=== PATIENT | female | born 1960 | race Hispanic/Latino ===

== ENCOUNTER 2019-05-13 17:33 | Emergency (ER) | payer OTHER ==
[2019-05-13] MEDS ORDERED: LIDOCAINE HCL-MPF 1% 2ML VIAL ONE (18:46)
[2019-05-13] MEDS ORDERED: CEFTRIAXONE SODIUM 1 GM ONE (18:46)
[2019-05-13] MEDS ORDERED: TETANUS/DIPHTHERIA TOXOID [ADULT] 0.5 ML VIAL IM ONE (18:47)
== END 2019-05-13 19:00 | disposition home or self-care (01) ==
LOC: EDH 17:33
DX: S51.831A Puncture wound without foreign body of right forearm, initial encounter (principal); I10 Essential (primary) hypertension; Z90.49 Acquired absence of other specified parts of digestive tract; W55.01XA Bitten by cat, initial encounter; Y93.89 Activity, other specified; Y92.098 Other place in other non-institutional residence as the place of occurrence of the external cause; Y99.8 Other external cause status
CPT/HCPCS: 90471; 90714; 96372; 99284; J0696; J3490

== ENCOUNTER 2020-01-06 07:48 | Emergency (ER) | payer OTHER ==
[2020-01-06 08:53] LABS: BASOPHILS % (AUTO) 0.2 % (0.0-5.0); HEMATOCRIT 37.1 % (36-48); LYMPHOCYTES % (AUTO) 20.5 % (21.0-51.0); MEAN CORPUSCULAR HEMOGLOBIN 29.7 pg (27.0-33.0); MEAN CORPUSCULAR HGB CONC 33.4 g/dL (32.0-36.0); MONOCYTES % (AUTO) 6.7 % (3.0-13.0); NEUTROPHILS % (AUTO) 72.2 % (40.0-77.0); PLATELET COUNT (AUTO) 217 K/uL (130-400); RED BLOOD CELL COUNT(AUTO) 4.17 MIL/uL (4.00-5.50); RED CELL DISTRIBUTION WIDTH 12.8 % (11.0-15.5); WHITE BLOOD COUNT (AUTO) 4.6 K/uL (4.8-10.8)
[2020-01-06 09:02] LABS: CREATININE 0.5 mg/dL (0.5-1.5); POTASSIUM 3.3 mmol/L (3.5-5.1)
[2020-01-06 09:07] LABS: ALBUMIN 3.3 g/dL (3.5-5.0); BILIRUBIN,TOTAL 0.1 mg/dL (0.2-1.0); TOTAL PROTEIN, SERUM 7.4 g/dL (6.0-8.3)
[2020-01-06] MEDS ORDERED: INDOMETHACIN 50 MG SUPP.RECT RC SCH (09:30)
== END 2020-01-06 10:58 | disposition home or self-care (01) ==
LOC: EDH 07:48
DX: G44.85 Primary stabbing headache (principal); I10 Essential (primary) hypertension; Z90.49 Acquired absence of other specified parts of digestive tract
CPT/HCPCS: 36415; 70450; 80053; 85025; 85651

== ENCOUNTER 2020-01-12 13:49 | Inpatient (IN) | payer OTHER ==
[~2020-01-12] VITALS: Ht 157.5 cm; Wt 80.8 kg
[2020-01-12 15:04] LABS: BASOPHILS % (AUTO) 0.2 % (0.0-5.0); EOSINOPHILS % (AUTO) 0.2 % (0.0-8.0); HEMATOCRIT 36.7 % (36-48); LYMPHOCYTES % (AUTO) 3.8 % (21.0-51.0); MEAN CORPUSCULAR HEMOGLOBIN 29.7 pg (27.0-33.0); MEAN CORPUSCULAR HGB CONC 33.2 g/dL (32.0-36.0); MEAN CORPUSCULAR VOLUME 89.3 fL (79-99); MONOCYTES % (AUTO) 2.5 % (3.0-13.0); NEUTROPHILS % (AUTO) 91.5 % (40.0-77.0); PLATELET COUNT (AUTO) 377 K/uL (130-400); RED BLOOD CELL COUNT(AUTO) 4.11 MIL/uL (4.00-5.50); RED CELL DISTRIBUTION WIDTH 12.9 % (11.0-15.5); WHITE BLOOD COUNT (AUTO) 15.2 K/uL (4.8-10.8)
[2020-01-12 15:26] LABS: ALBUMIN 2.6 g/dL (3.5-5.0); BILIRUBIN,TOTAL 0.3 mg/dL (0.2-1.0); CREATININE 0.6 mg/dL (0.5-1.5); TOTAL PROTEIN, SERUM 6.6 g/dL (6.0-8.3)
[2020-01-12 15:28] LABS: POTASSIUM 2.9 mmol/L (3.5-5.1)
[2020-01-12 15:44] LABS: RAPID GROUP A STREP NEGATIVE (NEGATIVE)
[2020-01-12] MEDS ORDERED: ALBUTEROL INHALER 90MCG/INH IH ONE (16:28)
[2020-01-12] MEDS ORDERED: AZITHROMYCIN 500MG+NS 250ML 250 ML IV ONE (16:31)
[2020-01-12] MEDS ORDERED: CEFTRIAXONE SODIUM 1 GM ONE (16:32)
[2020-01-12 16:48] LABS: ABG BASE EXCESS 1.2 mmol/L (-2.0-3.0); ABG HCO3 25.2 mmol/L (21.0-28.0); ABG OXYGEN SATURATION 94.8 % (95.0-99.0); ABG PCO2 38 mmHg (32-45)
[2020-01-12] MEDS ORDERED: LIDOCAINE HCL-MPF 1% 2ML VIAL IJ PRN (17:15)
[2020-01-12] MEDS ORDERED: POTASSIUM CHLORIDE 20MEQ/100ML 100 ML IV PRN (17:15)
[2020-01-12] MEDS ORDERED: MAGNESIUM 2GM PREMIX 50ML 50 ML IV SCH (17:15)
[2020-01-12 18:15] LABS: HEMOGLOBIN A1C 5.3 % (4.0-6.0)
[2020-01-12] MEDS ORDERED: ENOXAPARIN SODIUM 40 MG/0.4 ML SYRINGE SQ ONE (19:52)
[2020-01-12] MEDS ORDERED: POTASSIUM BICARB/CIT AC 25 MEQ TABLET.EFF ONE (19:52)
[2020-01-12] MEDS ORDERED: ENOXAPARIN SODIUM 40 MG/0.4 ML SYRINGE SQ SCH (20:00)
[2020-01-12 20:45] LABS: LACTATE DEHYDROGENASE 413 U/L (81-234)
[2020-01-12] MEDS ORDERED: ACETAMINOPHEN 325 MG TAB ONE (21:54)
[2020-01-13] MEDS ORDERED: HYDRALAZINE HCL 20 MG/ML VIAL IV PRN (04:30)
[2020-01-13] MEDS ORDERED: LACTATED RINGERS 1000ML 1,000 ML IV SCH (04:45)
[2020-01-13] MEDS ORDERED: METHYLPREDNISOLONE SOD SUCC 40MG/ML 1ML ONE (04:51)
[2020-01-13] MEDS ORDERED: CEFTRIAXONE SODIUM 1 GM ONE (04:51)
[2020-01-13] MEDS: METHYLPREDNISOLONE SOD SUCC 40MG/ML 1ML IVP SCH ×3 (05:00→20:51)
[2020-01-13] MEDS: CEFTRIAXONE SODIUM 1 GM IVP SCH ×2 (06:00→18:16)
[2020-01-13 06:43] LABS: BASOPHILS % (AUTO) 0.1 % (0.0-5.0); EOSINOPHILS % (AUTO) 0.2 % (0.0-8.0); HEMATOCRIT 35.7 % (36-48); LYMPHOCYTES % (AUTO) 5.3 % (21.0-51.0); MEAN CORPUSCULAR HEMOGLOBIN 28.6 pg (27.0-33.0); MEAN CORPUSCULAR HGB CONC 32.2 g/dL (32.0-36.0); MEAN CORPUSCULAR VOLUME 88.8 fL (79-99); NEUTROPHILS % (AUTO) 90.7 % (40.0-77.0); PLATELET COUNT (AUTO) 347 K/uL (130-400); RED BLOOD CELL COUNT(AUTO) 4.02 MIL/uL (4.00-5.50); WHITE BLOOD COUNT (AUTO) 14.7 K/uL (4.8-10.8)
[2020-01-13 06:59] LABS: CREATININE 0.6 mg/dL (0.5-1.5); POTASSIUM 3.5 mmol/L (3.5-5.1)
[2020-01-13 07:29] LABS: CRP QUANTITATIVE 180.5 mg/L (0.00-9.0)
[2020-01-13] MEDS ORDERED: ENOXAPARIN SODIUM 40 MG/0.4 ML SYRINGE SQ SCH (09:00)
[2020-01-13] MEDS ORDERED: ENOXAPARIN SODIUM 60 MG/0.6 ML SQ ONE (10:23)
[2020-01-13] MEDS ORDERED: LOSA50TA64 PO (11:47)
[2020-01-13 12:00] VITALS: BP 136/67
[2020-01-13] MEDS ORDERED: REMDESIVIR (INVESTIGATIONAL) 200 MG in SODIUM CHLORIDE 0.9% 250 ML IV ONE (12:30)
[2020-01-13] MEDS: PHARMACY COMMUNICATION MISC SCH ×4 (12:45→19:45)
[2020-01-13] MEDS: AZITHROMYCIN 500MG+NS 250ML 250 ML IV SCH (14:11)
[2020-01-13 17:05] VITALS: BP 143/74
[2020-01-13 20:23] VITALS: BP 154/77
[2020-01-13] MEDS: ENOXAPARIN SODIUM 80 MG/0.8 ML SQ SCH (20:52)
[2020-01-14 00:11] VITALS: BP 135/80
[2020-01-14] MEDS: PHARMACY COMMUNICATION MISC SCH ×3 (03:45→19:45)
[2020-01-14 04:38] VITALS: BP 147/71
[2020-01-14] MEDS: CEFTRIAXONE SODIUM 1 GM IVP SCH ×2 (05:27→18:11)
[2020-01-14 06:11] LABS: HEMATOCRIT 34.9 % (36-48); MEAN CORPUSCULAR HEMOGLOBIN 28.9 pg (27.0-33.0); MEAN CORPUSCULAR HGB CONC 32.1 g/dL (32.0-36.0); MEAN CORPUSCULAR VOLUME 90.2 fL (79-99); PLATELET COUNT (AUTO) 378 K/uL (130-400); RED BLOOD CELL COUNT(AUTO) 3.87 MIL/uL (4.00-5.50); RED CELL DISTRIBUTION WIDTH 13.1 % (11.0-15.5); WHITE BLOOD COUNT (AUTO) 12.7 K/uL (4.8-10.8)
[2020-01-14 07:59] VITALS: BP 145/77
[2020-01-14 08:12] LABS: BILIRUBIN,TOTAL 0.2 mg/dL (0.2-1.0); CREATININE 0.6 mg/dL (0.5-1.5); POTASSIUM 3.9 mmol/L (3.5-5.1); TOTAL PROTEIN, SERUM 5.9 g/dL (6.0-8.3)
[2020-01-14 08:19] LABS: CRP QUANTITATIVE 244.6 mg/L (0.00-9.0)
[2020-01-14 08:44] LABS: LYMPHOCYTES % (MANUAL) 4 % (22-44); MAN.DIFF COMMENT-IMPRESSION MANUAL DIFFERENTIAL; MONOCYTES % (MANUAL) 2 % (2-9); PLATELET MORPHOLOGY COMMENT ADEQUATE; SEGMENTED NEUTROPHILS % 94 % (40-70)
[2020-01-14] MEDS ORDERED: MORPHINE SULFATE 2 MG/ML 1ML SYG IVP SCH (08:45)
[2020-01-14] MEDS: ENOXAPARIN SODIUM 80 MG/0.8 ML SQ SCH ×2 (09:05→19:54)
[2020-01-14] MEDS: METHYLPREDNISOLONE SOD SUCC 40MG/ML 1ML IVP SCH (09:05)
[2020-01-14] MEDS: NITROGLYCERIN 0.4 MG SL TAB SL PRN (09:07)
[2020-01-14 11:39] VITALS: BP 149/88
[2020-01-14] MEDS: AZITHROMYCIN 500MG+NS 250ML 250 ML IV SCH (15:03)
[2020-01-14 15:30] VITALS: BP 138/86
[2020-01-14] MEDS: METHYLPREDNISOLONE SOD SUCC 125MG/2ML VIAL IVP SCH ×2 (15:41→19:53)
--- NOTE | 2020-01-14 16:47 | NUR ---
cm note spoke to pt's spouse, pt resides at home with spouse, independent with adls and ambulation, pt drives. no dme, no services. states dc plan is back home at time of dc. states no dc needs. Addendum: 01/14/20 at 1650 by LEANDER FAGAN CM Amended: Links added.
[2020-01-14] MEDS: FAMOTIDINE 20MG TAB 20 MG TAB PO SCH (19:53)
--- NOTE | 2020-01-14 20:00 | NUR ---
PT ON NRB.AT 100%. O2 LEVEL AT 83%. SOB NOTED.
[2020-01-14 20:05] VITALS: BP 141/76
[2020-01-15] VITALS (7 sets, daily range): BP systolic 116–144; BP diastolic 42–71
--- NOTE | 2020-01-15 02:45 | NUR ---
PT C/O CHEST PAIN. NITRO X2 GIVEN. DID MINIMALLY SUBSIDE.
[2020-01-15] MEDS: NITROGLYCERIN 0.4 MG SL TAB SL PRN ×3 (03:00→18:26)
[2020-01-15] MEDS ORDERED: MORPHINE SULFATE 2 MG/ML 1ML SYG IVP ONE (03:00)
--- NOTE | 2020-01-15 03:00 | NUR ---
PAGED JOSUE MANAGER STRATEGY. NEW ORDER FOR EKG. LIPID PANEL. MORPHINE X1 2MG. PT REFUSED IT. REQUESTED TYLENOL.
[2020-01-15] MEDS ORDERED: MORPHINE SULFATE 2 MG/ML 1ML SYG ONE (03:15)
[2020-01-15] MEDS ORDERED: ACETAMINOPHEN 325 MG TAB ONE (03:42)
[2020-01-15] MEDS: PHARMACY COMMUNICATION MISC SCH ×3 (03:45→19:45)
[2020-01-15] MEDS: METHYLPREDNISOLONE SOD SUCC 125MG/2ML VIAL IVP SCH ×4 (03:52→21:08)
[2020-01-15 04:10] LABS: HEMATOCRIT 34.2 % (36-48); MEAN CORPUSCULAR HEMOGLOBIN 29.2 pg (27.0-33.0); MEAN CORPUSCULAR HGB CONC 32.7 g/dL (32.0-36.0); MEAN CORPUSCULAR VOLUME 89.1 fL (79-99); PLATELET COUNT (AUTO) 411 K/uL (130-400); RED BLOOD CELL COUNT(AUTO) 3.84 MIL/uL (4.00-5.50); RED CELL DISTRIBUTION WIDTH 12.6 % (11.0-15.5); WHITE BLOOD COUNT (AUTO) 11.8 K/uL (4.8-10.8)
[2020-01-15 04:16] LABS: CARBON DIOXIDE 29 mmol/L (21-32); CHLORIDE 104 mmol/L (101-111); CREATININE 0.6 mg/dL (0.5-1.5); GLOMERULAR FILTR. RATE CALC 108 mL/min (>60); GLUCOSE,RANDOM 159 mg/dL (70-105); POTASSIUM 3.7 mmol/L (3.5-5.1); SODIUM SERUM 140 mmol/L (136-145); UREA NITROGEN, BLOOD 21 mg/dL (7-18)
[2020-01-15 04:28] LABS: ALANINE AMINOTRANSFERASE 37 U/L (12-78); ALBUMIN 2.1 g/dL (3.5-5.0); ASPARTATE AMINOTRANSFERASE 30 U/L (10-37); BILIRUBIN,TOTAL 0.3 mg/dL (0.2-1.0); CREATINE KINASE, TOTAL 42 U/L (21-232); LACTATE DEHYDROGENASE 661 U/L (81-234); MYOGLOBIN 51 ng/mL (10-92); TROPONIN I < 0.04 ng/mL (0.00-0.06)
[2020-01-15 04:43] LABS: LYMPHOCYTES % (MANUAL) 2 % (22-44); MAN.DIFF COMMENT-IMPRESSION MANUAL DIFFERENTIAL; MONOCYTES % (MANUAL) 4 % (2-9); SEGMENTED NEUTROPHILS % 94 % (40-70)
--- NOTE | 2020-01-15 05:00 | NUR ---
PT HAS IMPROVED IN O2 LEVEL. 94% SUSTAINING.
[2020-01-15] MEDS: CEFTRIAXONE SODIUM 1 GM IVP SCH ×2 (05:43→17:21)
[2020-01-15] MEDS: FAMOTIDINE 20MG TAB 20 MG TAB PO SCH ×2 (08:23→21:09)
[2020-01-15] MEDS: ENOXAPARIN SODIUM 80 MG/0.8 ML SQ SCH ×2 (08:23→21:09)
[2020-01-15] MEDS: FUROSEMIDE 10 MG/ML 2ML VIAL IV SCH ×2 (12:27→23:58)
[2020-01-15] MEDS: AZITHROMYCIN 500MG+NS 250ML 250 ML IV SCH (14:58)
[2020-01-15] MEDS: ACETAMINOPHEN 325 MG TAB PO PRN (14:59)
--- NOTE | 2020-01-15 18:20 | NUR ---
patient reports chest pain to center of chest reports feels like a throbbing pain. patient requested nitro. 2 doses of Nitro given 5 minutes. patient reports chest pain is resolved. STAT EKG ordered per protocol [id number] paged DIGITAL HARDWARE DESIGN ENGINEER AJ pending call back
--- NOTE | 2020-01-15 18:39 | NUR ---
spoke with JOSUE DEMOLITIONIST made aware of new report of chest pain and EKG result of sinus rhythm, new order stat cardiac panel and EKG prn chest pain. made him aware of 2 doses of nitro given, no new orders continue with nitro prn
[2020-01-15 20:15] LABS: CREATINE KINASE, TOTAL 52 U/L (21-232); MYOGLOBIN 48 ng/mL (10-92); TROPONIN I < 0.04 ng/mL (0.00-0.06)
--- NOTE | 2020-01-15 20:30 | NUR ---
called lab, asked about the pending covalencent plasma, lab personal stated they do not have any available
[2020-01-16] MEDS ORDERED: ONDANSETRON HCL 4 MG/2 ML VIAL ONE (02:27)
[2020-01-16] MEDS: METHYLPREDNISOLONE SOD SUCC 125MG/2ML VIAL IVP SCH ×3 (03:04→20:41)
[2020-01-16 03:06] VITALS: BP 138/66
[2020-01-16] MEDS ORDERED: ONDANSETRON HCL 4 MG/2 ML VIAL IVP PRN (03:15)
[2020-01-16] MEDS: PHARMACY COMMUNICATION MISC SCH ×3 (03:45→19:45)
--- NOTE | 2020-01-16 04:00 | NUR ---
as per zohra from lab convalescent plasma not available for this patient
[2020-01-16] MEDS: CEFTRIAXONE SODIUM 1 GM IVP SCH ×2 (04:40→18:19)
[2020-01-16 04:43] LABS: BASOPHILS % (AUTO) 0.1 % (0.0-5.0); HEMATOCRIT 35.2 % (36-48); LYMPHOCYTES % (AUTO) 5.5 % (21.0-51.0); NEUTROPHILS % (AUTO) 89.4 % (40.0-77.0); PLATELET COUNT (AUTO) 449 K/uL (130-400); RED CELL DISTRIBUTION WIDTH 12.3 % (11.0-15.5)
[2020-01-16 05:13] LABS: ALBUMIN 2.1 g/dL (3.5-5.0); BILIRUBIN,TOTAL 0.3 mg/dL (0.2-1.0); CREATININE 0.6 mg/dL (0.5-1.5); CRP QUANTITATIVE 63.5 mg/L (0.00-9.0); POTASSIUM 3.7 mmol/L (3.5-5.1); TOTAL PROTEIN, SERUM 5.9 g/dL (6.0-8.3)
[2020-01-16 08:00] VITALS: BP 101/55
[2020-01-16] MEDS: FAMOTIDINE 20MG TAB 20 MG TAB PO SCH ×2 (10:49→20:41)
[2020-01-16] MEDS: ENOXAPARIN SODIUM 80 MG/0.8 ML SQ SCH ×2 (10:50→20:45)
[2020-01-16 12:00] VITALS: BP 145/54
[2020-01-16] MEDS: FUROSEMIDE 10 MG/ML 2ML VIAL IV SCH ×2 (12:44→20:41)
[2020-01-16] MEDS: AZITHROMYCIN 500MG+NS 250ML 250 ML IV SCH (12:44)
[2020-01-16] MEDS: POTASSIUM CHLORIDE 20 MEQ ERTAB PO PRN (12:46)
--- NOTE | 2020-01-16 14:02 | NUR ---
noted patient tachepnic breathing 28 breaths per minute, patient currently on 60liters highflow O2. patients reports still feeling short of breath. current O2 sat 83%. Dr. Cooper at bedside new order decrease highflow to 40 LPM, and add non rebreather on top of highflow. Paris VERDE made aware of new order
[2020-01-16 16:00] VITALS: BP 120/62
--- NOTE | 2020-01-16 16:30 | NUR ---
PATIENT REPORTING SHE CANNOT BREATHE, CURRENTLY ON HIGH FLOW 60lpm 100%. PATIENT REMOVING O2, STATING IT IS HURTING HER NOSE. ATTEMPTED TO ADD NON REBREATHER ON TOP OF HIGHFLOW DR. POLANCO HAD ORDERED, PATIENT REFUSED. PATIENT ANXIOUS. PAGED DR. POLANCO PENDING CALL BACK
--- NOTE | 2020-01-16 16:40 | NUR ---
PATIENT IN PRONE POSITION WITH NON REBREATHER 100%, O2 SAT IMPROVED TO 92%, NEW ORDERS PER DR. POLANCO STAT ABG, CLONAZEPAM 0.25 DAILY PRN ANXIETY.
--- NOTE | 2020-01-16 17:00 | NUR ---
PATIENT IN PRONE POSITION, RESTING COMFORTABLY, NON REBREATHER 100%, SPOKE WITH DR. POLANCO UPDATED HIM ON ABG RESULTS AND PATIENTS CURRENT CONDITION SATURATING 94%, RESPIRATIONS EVEN AND UNLABORED. PER DR. POLANCO CONTINUE TO HAVE PATIENT IN PRONE POSITION, CONTINUE WITH NON REBREATHER
[2020-01-16 17:01] LABS: ABG BASE EXCESS 4.7 mmol/L (-2.0-3.0); ABG HCO3 29.1 mmol/L (21.0-28.0); ABG OXYGEN SATURATION 92.3 % (95.0-99.0); ABG PCO2 42 mmHg (32-45)
--- NOTE | 2020-01-16 19:15 | NUR ---
RECEIVED REPORT FROM NAINA DOOLEY. PT IS LAYING PRONE WITH EYES CLOSED. ON NRB 94%. NO DISTRESS NOTED. Addendum: 01/16/20 at 1937 by CHAKA ESPINO RN CORRECTION RECEIVED REPORT FROM MIKE.
[2020-01-16 19:38] VITALS: BP 111/62
--- NOTE | 2020-01-16 23:30 | NUR ---
PT IS IN SITTING POSITION ON THE BED, NRB O2 AT 92%. NO DISTRESS NOTED. PT DOES REPOSITION HERSELF TO PRONE, ALTERNATING HER POSITIONS. CALL LIGHT WITHIN REACH. BED TO LOWEST LEVEL.
[2020-01-17] VITALS (7 sets, daily range): BP systolic 125–153; BP diastolic 57–76
[2020-01-17] MEDS: CEFTRIAXONE SODIUM 1 GM IVP SCH ×2 (06:14→16:30)
[2020-01-17 06:49] LABS: BASOPHILS % (AUTO) 0.1 % (0.0-5.0); HEMATOCRIT 36.3 % (36-48); LYMPHOCYTES % (AUTO) 5.3 % (21.0-51.0); MEAN CORPUSCULAR HEMOGLOBIN 28.4 pg (27.0-33.0); MEAN CORPUSCULAR HGB CONC 32.2 g/dL (32.0-36.0); MEAN CORPUSCULAR VOLUME 88.1 fL (79-99); MONOCYTES % (AUTO) 2.5 % (3.0-13.0); PLATELET COUNT (AUTO) 433 K/uL (130-400); RED BLOOD CELL COUNT(AUTO) 4.12 MIL/uL (4.00-5.50); RED CELL DISTRIBUTION WIDTH 12.4 % (11.0-15.5); WHITE BLOOD COUNT (AUTO) 14.6 K/uL (4.8-10.8)
--- NOTE | 2020-01-17 06:50 | NUR ---
REPORT GIVEN TO NAINA TRAN. PT SITTING UP ON BED, NRB, O2 AT 89%. NO DISTRESS NOTED.
[2020-01-17 06:59] LABS: INR 0.99 (0.85-1.15); PROTHROMBIN TIME 10.7 SEC (9.6-11.6)
[2020-01-17] MEDS: ENOXAPARIN SODIUM 80 MG/0.8 ML SQ SCH ×2 (07:17→20:58)
[2020-01-17] MEDS: FUROSEMIDE 10 MG/ML 2ML VIAL IV SCH ×2 (07:17→23:45)
[2020-01-17] MEDS: FAMOTIDINE 20MG TAB 20 MG TAB PO SCH ×2 (07:17→20:57)
[2020-01-17 07:18] LABS: ALBUMIN 2.2 g/dL (3.5-5.0); BILIRUBIN,TOTAL 0.3 mg/dL (0.2-1.0); CREATININE 0.6 mg/dL (0.5-1.5); CRP QUANTITATIVE 36.1 mg/L (0.00-9.0); POTASSIUM 3.8 mmol/L (3.5-5.1); TOTAL PROTEIN, SERUM 5.8 g/dL (6.0-8.3)
[2020-01-17] MEDS: METHYLPREDNISOLONE SOD SUCC 125MG/2ML VIAL IVP SCH ×2 (07:18→20:56)
--- NOTE | 2020-01-17 08:00 | NUR ---
ASSESSMENT PT IS AAOX3 DENIES CP DENIES SOB DENIES NV AT THIS TIME. CURRENTLY ON O2 VIA NONREBREATHER FACING PRONE, STATES SHE FEELS FINE LIKE THIS AND IS ABLE TO REST. CALL LIGHT WITHIN REACH.
[2020-01-17] MEDS: AZITHROMYCIN 500MG+NS 250ML 250 ML IV SCH (13:25)
--- NOTE | 2020-01-17 18:07 | NUR ---
STATUS RESTING IN BED, PRONE STATUS. PT EXHIBITS NO VISIBLE SIGNS OF DISTRESS, REMAINS ON NONREBREATHER. CALL LIGHT WITHIN REACH.
[2020-01-17] MEDS: PHARMACY COMMUNICATION MISC SCH (19:45)
[2020-01-17] MEDS ORDERED: LACTULOSE 20 GM/30 ML UDCUP PO SCH (20:00)
[2020-01-17] MEDS ORDERED: LACTULOSE 20 GM/30 ML UDCUP ONE (20:04)
[2020-01-17] MEDS ORDERED: SODIUM CHLORIDE 0.9% 250 ML IV ONE (23:37)
--- NOTE | 2020-01-18 02:05 | NUR ---
STARTED 1STOF 2 CONVALESCENT PLASMA TRANSFUSION. PATIENT RESTING IN BED, O2 SATS 90-92%, NO ACUTE DISTRESS NOTED AT PRESENT.
[2020-01-18] MEDS: PHARMACY COMMUNICATION MISC SCH ×3 (03:45→19:45)
[2020-01-18 04:00] VITALS: BP 118/59
--- NOTE | 2020-01-18 04:10 | NUR ---
COMPLETED FIRST UNIT OF CONVALESCENT PLASMA WITHOUT ANY ADVERSE REACTION. PATIENT AAOX3, DENIES ANY DISCOMFORT.
--- NOTE | 2020-01-18 04:55 | NUR ---
STARTED 2ND OF 2 UNITS OF CONVALESCENT PLASMA. WILL MONITOR FOR S/S OF ADVERSE REACTION. O2 SATS REMAIN IN LOWER 90'S.
[2020-01-18 06:20] LABS: HEMATOCRIT 34.9 % (36-48); MEAN CORPUSCULAR HEMOGLOBIN 28.6 pg (27.0-33.0); MEAN CORPUSCULAR HGB CONC 32.7 g/dL (32.0-36.0); MEAN CORPUSCULAR VOLUME 87.7 fL (79-99); RED BLOOD CELL COUNT(AUTO) 3.98 MIL/uL (4.00-5.50); RED CELL DISTRIBUTION WIDTH 12.2 % (11.0-15.5); WHITE BLOOD COUNT (AUTO) 14.6 K/uL (4.8-10.8)
[2020-01-18] MEDS: CEFTRIAXONE SODIUM 1 GM IVP SCH (06:25)
[2020-01-18 06:52] LABS: ALBUMIN 2.2 g/dL (3.5-5.0); BILIRUBIN,TOTAL 0.4 mg/dL (0.2-1.0); CREATININE 0.5 mg/dL (0.5-1.5); CRP QUANTITATIVE 68.4 mg/L (0.00-9.0); POTASSIUM 3.6 mmol/L (3.5-5.1); TOTAL PROTEIN, SERUM 5.9 g/dL (6.0-8.3)
--- NOTE | 2020-01-18 07:00 | NUR ---
COMPLETED 2ND OF 2 UNITS OF CONVALESCENT PLASMA WITHOUT ANY ADVERSE REACTION. PATIENT AAOX3, DENIES ANY DISCOMFORT. PERSISTENT O2 SATS IN LOWER 90'S.
[2020-01-18] MEDS: METHYLPREDNISOLONE SOD SUCC 125MG/2ML VIAL IVP SCH ×3 (07:27→19:37)
[2020-01-18] MEDS: ENOXAPARIN SODIUM 80 MG/0.8 ML SQ SCH ×2 (07:27→19:38)
[2020-01-18] MEDS: FUROSEMIDE 10 MG/ML 2ML VIAL IV SCH ×2 (07:28→19:37)
[2020-01-18] MEDS: FAMOTIDINE 20MG TAB 20 MG TAB PO SCH ×2 (07:28→19:38)
--- NOTE | 2020-01-18 08:00 | NUR ---
ASSESSMENT PT IS AAOX3 DENIES CP DENIES SOB WHILE AT REST, DENIES NV. CURRENTLY ON O2 VIA NONREBREATHER, SATURATING LOW 90S. BREATHING PATTERN IS EVEN AND UNLABORED. CALL LIGHT WITHIN REACH.
[2020-01-18 08:17] VITALS: BP 118/76
[2020-01-18] MEDS: CEFEPIME HCL 2 GM VIAL IVP SCH ×2 (10:57→19:36)
[2020-01-18] MEDS: AZITHROMYCIN 500MG+NS 250ML 250 ML IV SCH (11:01)
[2020-01-18 11:51] VITALS: BP 120/67
--- NOTE | 2020-01-18 12:00 | NUR ---
MD ROUNDS DR POLANCO / AMY YORK COMPUTER REPAIR INSTRUCTOR / JOSUE ROUNDED. ORDERS RECEIVED.
--- NOTE | 2020-01-18 16:30 | NUR ---
STATUS RESTING IN BED, PRONE. REMAINS ON NONREBREATHER. O2 SAT HIGH 80S LOW 90S. NO VISIBLE SIGNS OF DISTRESS NOTED. CALL LIGHT WITHIN REACH.
[2020-01-18 16:51] VITALS: BP 135/72
[2020-01-18 19:50] VITALS: BP 137/64
[2020-01-18 23:52] VITALS: BP 119/58
[2020-01-19] MEDS: CEFEPIME HCL 2 GM VIAL IVP SCH ×3 (03:15→18:45)
[2020-01-19] MEDS: METHYLPREDNISOLONE SOD SUCC 125MG/2ML VIAL IVP SCH ×3 (03:15→18:45)
[2020-01-19] MEDS: PHARMACY COMMUNICATION MISC SCH ×3 (03:26→20:00)
[2020-01-19 04:19] VITALS: BP 116/67
[2020-01-19 05:25] LABS: BASOPHILS % (AUTO) 0.3 % (0.0-5.0); HEMATOCRIT 37.7 % (36-48); LYMPHOCYTES % (AUTO) 3.6 % (21.0-51.0); MEAN CORPUSCULAR HEMOGLOBIN 28.6 pg (27.0-33.0); MEAN CORPUSCULAR HGB CONC 32.1 g/dL (32.0-36.0); MEAN CORPUSCULAR VOLUME 89.1 fL (79-99); MONOCYTES % (AUTO) 1.4 % (3.0-13.0); NEUTROPHILS % (AUTO) 92.2 % (40.0-77.0); PLATELET COUNT (AUTO) 402 K/uL (130-400); RED BLOOD CELL COUNT(AUTO) 4.23 MIL/uL (4.00-5.50); RED CELL DISTRIBUTION WIDTH 12.4 % (11.0-15.5); WHITE BLOOD COUNT (AUTO) 14.6 K/uL (4.8-10.8)
[2020-01-19 06:11] LABS: ALBUMIN 2.4 g/dL (3.5-5.0); BILIRUBIN,TOTAL 0.5 mg/dL (0.2-1.0); CREATININE 0.6 mg/dL (0.5-1.5); CRP QUANTITATIVE 142.6 mg/L (0.00-9.0); POTASSIUM 3.4 mmol/L (3.5-5.1); TOTAL PROTEIN, SERUM 6.4 g/dL (6.0-8.3)
[2020-01-19] MEDS: ALBUTEROL INHALER 90MCG/INH IH SCH ×5 (08:00→20:24)
[2020-01-19 08:07] VITALS: BP 127/61
[2020-01-19] MEDS: FAMOTIDINE 20MG TAB 20 MG TAB PO SCH ×3 (09:00→20:24)
[2020-01-19] MEDS ORDERED: SODIUM CHLORIDE 0.9% 250 ML IV ONE (09:30)
[2020-01-19] MEDS: ENOXAPARIN SODIUM 80 MG/0.8 ML SQ SCH ×2 (10:07→20:27)
[2020-01-19] MEDS: FUROSEMIDE 10 MG/ML 2ML VIAL IV SCH (10:08)
[2020-01-19] MEDS: AZITHROMYCIN 500MG+NS 250ML 250 ML IV SCH (10:08)
[2020-01-19] MEDS: POTASSIUM CHLORIDE 20 MEQ ERTAB PO PRN (10:13)
[2020-01-19 11:00] VITALS: BP 109/52
--- NOTE | 2020-01-19 15:22 | NUR ---
RDScreen-LOS x7 Pt admitted with SOB, Covid-19, Respiratory function. 30gm CC diet order in place. Pt tolerating current diet order with no report of GI distress, Good PO intake at 100%. Pt with increased protein needs due to respiratory failure. Covid-19. Recommend continue current diet order. Recommend 60mL ProMod BID. RD to continue to monitor. Please notify as additional nutrition concerns arise. Thank you. Addendum: 01/19/20 at [address] RD Amended: Links added.
[2020-01-19 15:47] VITALS: BP 117/73
[2020-01-19 19:21] VITALS: BP 103/47
--- NOTE | 2020-01-19 23:07 | NUR ---
PATIENTS O2 BECAME LOW TO 69 WHEN SHE TRIED TO SIT UP, REPORTS BEING SOB, ADVISED PRONE POSITION. PATIENT STATES SHE FEELS BETTER AND IS NOT IN DISTRESS NOR IN PAIN. WILL MONITOR
[2020-01-19 23:44] VITALS: BP 107/62
[2020-01-20] VITALS (7 sets, daily range): BP systolic 95–127; BP diastolic 52–73
[2020-01-20] MEDS: CEFEPIME HCL 2 GM VIAL IVP SCH ×3 (02:38→21:42)
[2020-01-20] MEDS: FUROSEMIDE 10 MG/ML 2ML VIAL IV SCH ×3 (02:39→21:42)
[2020-01-20] MEDS: METHYLPREDNISOLONE SOD SUCC 125MG/2ML VIAL IVP SCH ×3 (02:39→21:46)
[2020-01-20] MEDS: ALBUTEROL INHALER 90MCG/INH IH SCH ×5 (02:48→16:45)
[2020-01-20 04:54] LABS: BASOPHILS % (AUTO) 0.2 % (0.0-5.0); HEMATOCRIT 37.2 % (36-48); LYMPHOCYTES % (AUTO) 3.9 % (21.0-51.0); MEAN CORPUSCULAR HEMOGLOBIN 29.2 pg (27.0-33.0); MEAN CORPUSCULAR HGB CONC 32.8 g/dL (32.0-36.0); MONOCYTES % (AUTO) 1.8 % (3.0-13.0); NEUTROPHILS % (AUTO) 91.7 % (40.0-77.0); PLATELET COUNT (AUTO) 430 K/uL (130-400); RED BLOOD CELL COUNT(AUTO) 4.18 MIL/uL (4.00-5.50); RED CELL DISTRIBUTION WIDTH 12.3 % (11.0-15.5); WHITE BLOOD COUNT (AUTO) 14.8 K/uL (4.8-10.8)
[2020-01-20 05:38] LABS: CREATININE 0.6 mg/dL (0.5-1.5); POTASSIUM 3.4 mmol/L (3.5-5.1)
[2020-01-20 05:42] LABS: ALBUMIN 2.3 g/dL (3.5-5.0); BILIRUBIN,TOTAL 0.5 mg/dL (0.2-1.0); CRP QUANTITATIVE 74.5 mg/L (0.00-9.0); TOTAL PROTEIN, SERUM 6.4 g/dL (6.0-8.3)
[2020-01-20] MEDS: POTASSIUM CHLORIDE 10% ELIXIR 20 MEQ/15 ML UDCUP PO PRN ×2 (05:59→15:15)
[2020-01-20] MEDS: FAMOTIDINE 20MG TAB 20 MG TAB PO SCH (09:00)
[2020-01-20] MEDS: AZITHROMYCIN 500MG+NS 250ML 250 ML IV SCH (09:49)
[2020-01-20] MEDS: ENOXAPARIN SODIUM 80 MG/0.8 ML SQ SCH ×2 (09:50→21:42)
[2020-01-20] MEDS: PHARMACY COMMUNICATION MISC SCH (11:27)
[2020-01-20] MEDS: PANTOPRAZOLE SODIUM 40 MG TABLET.DR PO SCH (21:40)
[2020-01-21 04:37] VITALS: BP 114/60
[2020-01-21] MEDS: CEFEPIME HCL 2 GM VIAL IVP SCH ×3 (05:48→21:49)
[2020-01-21] MEDS: METHYLPREDNISOLONE SOD SUCC 125MG/2ML VIAL IVP SCH ×2 (05:48→13:15)
[2020-01-21 06:05] LABS: HEMATOCRIT 36.4 % (36-48); MEAN CORPUSCULAR HEMOGLOBIN 29.5 pg (27.0-33.0); MEAN CORPUSCULAR HGB CONC 33.2 g/dL (32.0-36.0); MEAN CORPUSCULAR VOLUME 88.8 fL (79-99); PLATELET COUNT (AUTO) 430 K/uL (130-400); RED CELL DISTRIBUTION WIDTH 12.6 % (11.0-15.5); WHITE BLOOD COUNT (AUTO) 16.1 K/uL (4.8-10.8)
[2020-01-21 06:15] LABS: CREATININE 0.6 mg/dL (0.5-1.5); CRP QUANTITATIVE 41.7 mg/L (0.00-9.0); POTASSIUM 4.6 mmol/L (3.5-5.1)
[2020-01-21 06:54] LABS: BAND NEUTROPHILS % (MANUAL) 2 % (0-2); LYMPHOCYTES % (MANUAL) 10 % (22-44); MAN.DIFF COMMENT-IMPRESSION MANUAL DIFFERENTIAL; MONOCYTES % (MANUAL) 7 % (2-9); PLATELET MORPHOLOGY COMMENT ADEQUATE; SEGMENTED NEUTROPHILS % 81 % (40-70)
[2020-01-21 07:00] VITALS: BP 122/61
[2020-01-21] MEDS: FUROSEMIDE 10 MG/ML 2ML VIAL IV SCH ×2 (09:04→20:08)
[2020-01-21] MEDS: PANTOPRAZOLE SODIUM 40 MG TABLET.DR PO SCH (09:04)
[2020-01-21] MEDS: ENOXAPARIN SODIUM 80 MG/0.8 ML SQ SCH ×2 (09:05→20:08)
[2020-01-21 11:00] VITALS: BP 106/49
[2020-01-21 16:00] VITALS: BP 119/64
[2020-01-21] MEDS: METHYLPREDNISOLONE SOD SUCC 40MG/ML 1ML IVP SCH (17:27)
[2020-01-21 19:23] VITALS: BP 98/51
[2020-01-21] MEDS: ALBUTEROL INHALER 90MCG/INH IH SCH ×2 (20:11→23:30)
--- NOTE | 2020-01-21 22:00 | NUR ---
PRONE Pt lying in prone position,jackson well.Cont on 100% NRB mask,satting 96%.Pt denies sob.
[2020-01-21] MEDS: ALBUTEROL INHALER 90MCG/INH IH PRN (23:30)
[2020-01-22] VITALS (7 sets, daily range): BP systolic 95–142; BP diastolic 47–80
[2020-01-22] MEDS: METHYLPREDNISOLONE SOD SUCC 40MG/ML 1ML IVP SCH ×2 (00:30→08:23)
--- NOTE | 2020-01-22 00:30 | NUR ---
DESATS Pt.2 02 sat drops to the 70-80's when she's sitting at the edge of the bed to go the the bedside commode.Pt gets dyspneic and tachypneic.
--- NOTE | 2020-01-22 02:25 | NUR ---
PRONE Pt went back to lying prone,cont on 100%non rebreather mask,appears less tachypneic and dyspnei,02 sat 86-89%.Pt appears more comfortable now.
[2020-01-22] MEDS: ALBUTEROL INHALER 90MCG/INH IH SCH ×5 (04:02→20:00)
[2020-01-22] MEDS: CEFEPIME HCL 2 GM VIAL IVP SCH ×3 (04:42→21:50)
[2020-01-22 06:08] LABS: BASOPHILS % (AUTO) 0.2 % (0.0-5.0); HEMATOCRIT 38.2 % (36-48); LYMPHOCYTES % (AUTO) 2.9 % (21.0-51.0); MEAN CORPUSCULAR HEMOGLOBIN 28.4 pg (27.0-33.0); MEAN CORPUSCULAR HGB CONC 31.9 g/dL (32.0-36.0); MEAN CORPUSCULAR VOLUME 88.8 fL (79-99); MONOCYTES % (AUTO) 2.6 % (3.0-13.0); NEUTROPHILS % (AUTO) 92.2 % (40.0-77.0); PLATELET COUNT (AUTO) 471 K/uL (130-400); RED CELL DISTRIBUTION WIDTH 12.8 % (11.0-15.5); WHITE BLOOD COUNT (AUTO) 17.9 K/uL (4.8-10.8)
[2020-01-22 06:12] LABS: CREATININE 0.5 mg/dL (0.5-1.5); CRP QUANTITATIVE 27.7 mg/L (0.00-9.0); POTASSIUM 3.8 mmol/L (3.5-5.1)
[2020-01-22] MEDS ORDERED: METHYLPREDNISOLONE SOD SUCC 125MG/2ML VIAL ONE (08:21)
[2020-01-22] MEDS: PANTOPRAZOLE SODIUM 40 MG TABLET.DR PO SCH (08:22)
[2020-01-22] MEDS: ENOXAPARIN SODIUM 80 MG/0.8 ML SQ SCH ×2 (08:23→21:21)
[2020-01-22] MEDS: FUROSEMIDE 10 MG/ML 2ML VIAL IV SCH ×2 (08:23→21:22)
[2020-01-22] MEDS: POTASSIUM CHLORIDE 20 MEQ ERTAB PO PRN (08:28)
[2020-01-22] MEDS: METHYLPREDNISOLONE SOD SUCC 125MG/2ML VIAL IVP SCH ×3 (10:50→23:04)
[2020-01-22] MEDS: POTASSIUM CHLORIDE 10% ELIXIR 20 MEQ/15 ML UDCUP PO PRN (12:14)
[2020-01-22] MEDS ORDERED: PHARMACY COMMUNICATION**REMDESIVIR MISC SCH (12:15)
--- NOTE | 2020-01-22 13:15 | NUR ---
STATUS PATIENT HAS REMAINED ON NONREBREATHER, SHE IS SATTING 85-93% AT REST. SHE DOES DESATURATE TO 70s% UPON EXERTION. DR. POLANCO AT BEDSIDE AT 1200 TO ASK FOR AN UPDATE. HE REQUESTS PATIENT TO BE TRANSFERRED TO ICU. RT MADE AWARE TO SWITCH PATIENT TO HIGH FLOW NASAL CANNULA WHEN SUPPLIES BECOME AVAILABLE. FAMILY CALLED AT THIS TIME AND UPDATED WITH PATIENT'S CURRENT STATUS. SHE REMAINS WITH NRB AND CONTINUOUS PULSE OX READING, CURRENTLY 93% SITTING IN BED. PATIENT STATES SHE FEELS OKAY, BUT TAKES HER A WHILE TO CATCH HER BREATH. PATIENT INSTRUCTED TO TAKE DEEP SLOW BREATHS. PATIENT AND PULSE OX READING VISIBLE AT ALL TIMES THROUGH ROOM WINDOW. WILL CONTINUE TO MONITORY CLOSELY.
--- NOTE | 2020-01-22 16:00 | NUR ---
STATUS PATIENT HAS BEEN IN PRONE SINCE 1400. SATURATIONS HAVE BEEN 94%+. PHARMACY WAS REQUESTED TO REEVALUATE PATIENT FOR REMDESIVIR.
[2020-01-22] MEDS ORDERED: REMDESIVIR (INVESTIGATIONAL) 200 MG/250 ML NS IV SCH (17:00)
[2020-01-22] MEDS ORDERED: LORAZEPAM 2 MG/ML 1 ML VIAL IM ONE (17:30)
[2020-01-22] MEDS ORDERED: LORAZEPAM 2 MG/ML 1 ML VIAL IM PRN (17:30)
--- NOTE | 2020-01-22 23:50 | NUR ---
PT TRANSFERRED TO ICU REPORT GIVEN NAINA TURK. PT IN BED PRONE POSITION, CONT PULSE OX READING 93% ON NONREBREATHER. PT TRANSFERRED VIA WC WITH ART AND ZACHARY ASSISTING. O2 TANK SET TO 15 LPM DURING TRANSFER. PT DESATURATED TO 77%. NONREBREATHER SET TO 15 LPM AND NC @ 3 LPM. PT TRANSFERRED TO BED, ENCOURAGED TO DEEP BREATH. O2 SATS BEGAN TO INCREASE TO 88%. BUKRE RN TO CONTINUE PT CARE FROM THIS POINT.
[2020-01-23] VITALS (34 sets, daily range): BP systolic 104–152; BP diastolic 36–75
[2020-01-23] MEDS: CLONAZEPAM 0.5 MG TABLET PO PRN (01:33)
[2020-01-23] MEDS: ALBUTEROL INHALER 90MCG/INH IH SCH ×6 (04:00→20:00)
[2020-01-23 05:08] LABS: BASOPHILS % (AUTO) 0.2 % (0.0-5.0); HEMATOCRIT 36.6 % (36-48); LYMPHOCYTES % (AUTO) 4.1 % (21.0-51.0); MEAN CORPUSCULAR HEMOGLOBIN 29.1 pg (27.0-33.0); MEAN CORPUSCULAR HGB CONC 32.2 g/dL (32.0-36.0); MEAN CORPUSCULAR VOLUME 90.4 fL (79-99); MONOCYTES % (AUTO) 3.1 % (3.0-13.0); NEUTROPHILS % (AUTO) 89.9 % (40.0-77.0); PLATELET COUNT (AUTO) 446 K/uL (130-400); RED BLOOD CELL COUNT(AUTO) 4.05 MIL/uL (4.00-5.50); RED CELL DISTRIBUTION WIDTH 12.7 % (11.0-15.5); WHITE BLOOD COUNT (AUTO) 13.5 K/uL (4.8-10.8)
[2020-01-23] MEDS ORDERED: PHARMACY COMMUNICATION MISC SCH (05:15)
[2020-01-23 05:20] LABS: CRP QUANTITATIVE 26.1 mg/L (0.00-9.0)
[2020-01-23] MEDS: METHYLPREDNISOLONE SOD SUCC 125MG/2ML VIAL IVP SCH ×4 (05:52→21:39)
[2020-01-23] MEDS: CEFEPIME HCL 2 GM VIAL IVP SCH ×3 (05:53→21:39)
[2020-01-23] MEDS ORDERED: FUROSEMIDE 10 MG/ML 2ML VIAL IV SCH (06:00)
--- NOTE | 2020-01-23 07:40 | NUR ---
DR POLANCO NOTIFIED VIA PHONE REGARDING PATIENT SATTING 70-80'S, REMAINS ON 100 % NRM PLUS 4 LITERS VIA NASAL CANNULA, NEW ORDERS GIVEN.
[2020-01-23 08:11] LABS: ABG HCO3 25.9 mmol/L (21.0-28.0); ABG OXYGEN SATURATION 74.9 % (95.0-99.0); ABG PCO2 38 mmHg (32-45)
--- NOTE | 2020-01-23 08:15 | NUR ---
DR POLANCO NOTIFIED VIA PHONE REGARDING ABG RESULTS: PH 7.449, PCO2 38.2, PO2 38.1, HCO3 25.9, BE2.0, NEW INSTRUCTIONS GIVEN TO PLACED PATIENT ON PRONE POSITION, ORDERS CARRIED OUT, ORDERED PER MD.
[2020-01-23] MEDS: PANTOPRAZOLE SODIUM 40 MG TABLET.DR PO SCH (08:16)
[2020-01-23] MEDS: ENOXAPARIN SODIUM 80 MG/0.8 ML SQ SCH ×2 (08:17→21:40)
--- NOTE | 2020-01-23 09:05 | NUR ---
REMAINS WITH O2 SATS BETWEEN 75-82 WHILE ON PRONE POSITION, PLACED ON HIGH FLOW NASAL CANNULA AT 50 LITERS, 100% FIO2, INSTRUCTED PER DR POLANCO.
--- NOTE | 2020-01-23 09:30 | NUR ---
O2 SATS NOTED AT 91% ON HIGH FLOW AND NRM, NO RESPIRATORY DISTRESS NOTED, REMAINS PRONE
--- NOTE | 2020-01-23 10:15 | NUR ---
DR POLANCO PRESENT OUTSIDE PATIENT'S ROOM, MD INSTRUCTED TO KEEP PATIENT PRONE AT ALL TIMES
[2020-01-23] MEDS: REMDESIVIR (INVESTIGATIONAL) 100 MG in SODIUM CHLORIDE 0.9% 250 ML IV SCH (16:45)
[2020-01-23] MEDS: FUROSEMIDE 10 MG/ML 2ML VIAL IV SCH (17:16)
[2020-01-24] VITALS (35 sets, daily range): BP systolic 90–131; BP diastolic 40–102
[2020-01-24] MEDS: CLONAZEPAM 0.5 MG TABLET PO PRN ×2 (01:02→20:58)
[2020-01-24] MEDS: ALBUTEROL INHALER 90MCG/INH IH SCH ×6 (04:00→20:00)
[2020-01-24] MEDS: FUROSEMIDE 10 MG/ML 2ML VIAL IV SCH ×2 (05:19→17:05)
[2020-01-24] MEDS: CEFEPIME HCL 2 GM VIAL IVP SCH ×3 (05:19→20:59)
[2020-01-24] MEDS: METHYLPREDNISOLONE SOD SUCC 125MG/2ML VIAL IVP SCH ×4 (05:19→20:59)
[2020-01-24 06:58] LABS: BASOPHILS % (AUTO) 0.2 % (0.0-5.0); HEMATOCRIT 40.6 % (36-48); LYMPHOCYTES % (AUTO) 3.7 % (21.0-51.0); MEAN CORPUSCULAR HEMOGLOBIN 28.7 pg (27.0-33.0); MEAN CORPUSCULAR VOLUME 89.6 fL (79-99); MONOCYTES % (AUTO) 3.1 % (3.0-13.0); NEUTROPHILS % (AUTO) 91.1 % (40.0-77.0); PLATELET COUNT (AUTO) 532 K/uL (130-400); RED BLOOD CELL COUNT(AUTO) 4.53 MIL/uL (4.00-5.50); RED CELL DISTRIBUTION WIDTH 13.1 % (11.0-15.5); WHITE BLOOD COUNT (AUTO) 16.1 K/uL (4.8-10.8)
[2020-01-24 07:21] LABS: CARBON DIOXIDE 29 mmol/L (21-32); CHLORIDE 102 mmol/L (101-111); CREATININE 0.5 mg/dL (0.5-1.5); GLOMERULAR FILTR. RATE CALC 134 mL/min (>60); GLUCOSE,RANDOM 152 mg/dL (70-105); LACTATE DEHYDROGENASE 454 U/L (81-234); POTASSIUM 3.6 mmol/L (3.5-5.1); SODIUM SERUM 140 mmol/L (136-145); UREA NITROGEN, BLOOD 32 mg/dL (7-18)
[2020-01-24] MEDS: PANTOPRAZOLE SODIUM 40 MG TABLET.DR PO SCH (09:30)
[2020-01-24] MEDS: ACETYLCYSTEINE 600 MG CAPSULE PO SCH ×2 (09:30→20:58)
[2020-01-24] MEDS: ENOXAPARIN SODIUM 80 MG/0.8 ML SQ SCH (09:31)
[2020-01-24] MEDS: POTASSIUM CHLORIDE 10% ELIXIR 20 MEQ/15 ML UDCUP PO PRN ×2 (13:00→21:05)
[2020-01-24] MEDS ORDERED: POTASSIUM CHLORIDE 10MEQ/100ML 10 MEQ/100 ML ML IV SCH (13:15)
--- NOTE | 2020-01-24 14:25 | NUR ---
RD FOLLOW UP Pt continues on 30gm CCD, 60ml ProMod BID. No report of GI distress. Pt continues with SOB, as per EMR. S/p Plasma Tx, prone oxygenation. Pt remains with increased nutritional needs. Recommend to continue 60mL ProMod BID supplementation RD to continue to monitor. Please notify as additional nutrition concerns arise. Thank you. Addendum: 01/24/20 at [address] RD Amended: Links added.
[2020-01-24] MEDS: POTASSIUM CHLORIDE 10MEQ/100ML 100 ML IV SCH ×2 (14:42→14:43)
[2020-01-24] MEDS: REMDESIVIR (INVESTIGATIONAL) 100 MG in SODIUM CHLORIDE 0.9% 250 ML IV SCH (16:46)
[2020-01-24 20:42] LABS: MAGNESIUM 2.6 mg/dL (1.80-2.40); POTASSIUM 3.7 mmol/L (3.5-5.1)
[2020-01-25] VITALS (42 sets, daily range): BP systolic 93–139; BP diastolic 43–77
[2020-01-25] MEDS: ALBUTEROL INHALER 90MCG/INH IH SCH ×6 (04:00→21:26)
[2020-01-25 05:40] LABS: HEMATOCRIT 40.3 % (36-48); MEAN CORPUSCULAR HEMOGLOBIN 29.2 pg (27.0-33.0); MEAN CORPUSCULAR HGB CONC 32.5 g/dL (32.0-36.0); PLATELET COUNT (AUTO) 473 K/uL (130-400); RED BLOOD CELL COUNT(AUTO) 4.48 MIL/uL (4.00-5.50); RED CELL DISTRIBUTION WIDTH 13.2 % (11.0-15.5); WHITE BLOOD COUNT (AUTO) 20.5 K/uL (4.8-10.8)
[2020-01-25 06:01] LABS: ALBUMIN 2.5 g/dL (3.5-5.0); BILIRUBIN,TOTAL 0.4 mg/dL (0.2-1.0); CREATININE 0.6 mg/dL (0.5-1.5); CRP QUANTITATIVE 24.1 mg/L (0.00-9.0); POTASSIUM 4.2 mmol/L (3.5-5.1); TOTAL PROTEIN, SERUM 5.9 g/dL (6.0-8.3)
[2020-01-25] MEDS: FUROSEMIDE 10 MG/ML 2ML VIAL IV SCH ×2 (06:02→17:00)
[2020-01-25] MEDS: CEFEPIME HCL 2 GM VIAL IVP SCH (06:02)
[2020-01-25] MEDS: METHYLPREDNISOLONE SOD SUCC 125MG/2ML VIAL IVP SCH (06:02)
[2020-01-25 08:44] LABS: BAND NEUTROPHILS % (MANUAL) 6 % (0-2); LYMPHOCYTES % (MANUAL) 16 % (22-44); MAN.DIFF COMMENT-IMPRESSION MANUAL DIFFERENTIAL; MONOCYTES % (MANUAL) 7 % (2-9); PLATELET MORPHOLOGY COMMENT N; SEGMENTED NEUTROPHILS % 71 % (40-70)
[2020-01-25] MEDS: METHYLPREDNISOLONE SOD SUCC 40MG/ML 1ML IVP SCH ×3 (08:57→23:47)
[2020-01-25] MEDS: PANTOPRAZOLE SODIUM 40 MG TABLET.DR PO SCH (08:57)
[2020-01-25] MEDS: ACETYLCYSTEINE 600 MG CAPSULE PO SCH ×2 (08:57→21:24)
[2020-01-25] MEDS: ENOXAPARIN SODIUM 80 MG/0.8 ML SQ SCH (08:59)
[2020-01-25] MEDS: REMDESIVIR (INVESTIGATIONAL) 100 MG in SODIUM CHLORIDE 0.9% 250 ML IV SCH (16:59)
[2020-01-26] VITALS (40 sets, daily range): BP systolic 99–130; BP diastolic 45–81
[2020-01-26 04:48] LABS: HEMATOCRIT 43.4 % (36-48); MEAN CORPUSCULAR HEMOGLOBIN 29.1 pg (27.0-33.0); MEAN CORPUSCULAR HGB CONC 32.3 g/dL (32.0-36.0); MEAN CORPUSCULAR VOLUME 90.2 fL (79-99); PLATELET COUNT (AUTO) 378 K/uL (130-400); RED BLOOD CELL COUNT(AUTO) 4.81 MIL/uL (4.00-5.50); RED CELL DISTRIBUTION WIDTH 13.3 % (11.0-15.5); WHITE BLOOD COUNT (AUTO) 16.4 K/uL (4.8-10.8)
[2020-01-26 05:05] LABS: ALBUMIN 2.7 g/dL (3.5-5.0); BILIRUBIN,TOTAL 0.4 mg/dL (0.2-1.0); CREATININE 0.6 mg/dL (0.5-1.5); CRP QUANTITATIVE 45.2 mg/L (0.00-9.0); POTASSIUM 3.6 mmol/L (3.5-5.1); TOTAL PROTEIN, SERUM 6.5 g/dL (6.0-8.3)
[2020-01-26] MEDS: ACETAMINOPHEN 325 MG TAB PO PRN ×3 (06:12→11:04)
[2020-01-26] MEDS: POTASSIUM CHLORIDE 10% ELIXIR 20 MEQ/15 ML UDCUP PO PRN ×2 (06:13→08:46)
[2020-01-26] MEDS: FUROSEMIDE 10 MG/ML 2ML VIAL IV SCH ×2 (06:13→16:55)
[2020-01-26 06:33] LABS: BAND NEUTROPHILS % (MANUAL) 1 % (0-2); LYMPHOCYTES % (MANUAL) 3 % (22-44); MAN.DIFF COMMENT-IMPRESSION MANUAL DIFFERENTIAL; MONOCYTES % (MANUAL) 1 % (2-9); SEGMENTED NEUTROPHILS % 95 % (40-70)
[2020-01-26 06:34] LABS: PLATELET MORPHOLOGY COMMENT ADEQUATE
[2020-01-26] MEDS: ENOXAPARIN SODIUM 80 MG/0.8 ML SQ SCH (08:46)
[2020-01-26] MEDS: ACETYLCYSTEINE 600 MG CAPSULE PO SCH ×2 (08:47→20:42)
[2020-01-26] MEDS: METHYLPREDNISOLONE SOD SUCC 40MG/ML 1ML IVP SCH ×2 (08:48→16:54)
[2020-01-26] MEDS: PANTOPRAZOLE SODIUM 40 MG TABLET.DR PO SCH (08:48)
[2020-01-26] MEDS: ALBUTEROL INHALER 90MCG/INH IH SCH ×4 (11:02→20:46)
[2020-01-26] MEDS: REMDESIVIR (INVESTIGATIONAL) 100 MG in SODIUM CHLORIDE 0.9% 250 ML IV SCH (18:31)
--- NOTE | 2020-01-26 21:18 | NUR ---
PSHIFT VS STABLE st ON MONITOR PT HAVE DIFFICULTY SWALLOWING PILLS WITHOUT COUGH AND sob PT hr INCREASE AFTER PO MEDS. PT REMOANS PRONE PER ORDER SAT REMAINS 95-100%
[2020-01-26] MEDS: CLONAZEPAM 0.5 MG TABLET PO PRN (22:25)
--- NOTE | 2020-01-26 22:25 | NUR ---
PT ANXIOUS AND HR CONTINUES TO INCREASE PT FEEL THAT NOT GETTING ENOUGH OXYGEN HOWEVER LEVELS ARE NORMAL. GIVEN MEDS ORDERED rt EVALUATED THE PT
[2020-01-27] VITALS (14 sets, daily range): BP systolic 96–139; BP diastolic 38–85
[2020-01-27] MEDS: METHYLPREDNISOLONE SOD SUCC 40MG/ML 1ML IVP SCH ×3 (01:40→18:47)
[2020-01-27] MEDS: ALBUTEROL INHALER 90MCG/INH IH SCH ×4 (01:55→22:16)
[2020-01-27] MEDS: FUROSEMIDE 10 MG/ML 2ML VIAL IV SCH (05:42)
[2020-01-27 06:53] LABS: BASOPHILS % (AUTO) 0.2 % (0.0-5.0); HEMATOCRIT 46.9 % (36-48); LYMPHOCYTES % (AUTO) 2.3 % (21.0-51.0); MEAN CORPUSCULAR HEMOGLOBIN 28.8 pg (27.0-33.0); MEAN CORPUSCULAR HGB CONC 31.3 g/dL (32.0-36.0); MONOCYTES % (AUTO) 2.1 % (3.0-13.0); NEUTROPHILS % (AUTO) 93.9 % (40.0-77.0); PLATELET COUNT (AUTO) 468 K/uL (130-400); RED CELL DISTRIBUTION WIDTH 13.9 % (11.0-15.5); WHITE BLOOD COUNT (AUTO) 18.1 K/uL (4.8-10.8)
[2020-01-27 07:19] LABS: ALBUMIN 2.9 g/dL (3.5-5.0); BILIRUBIN,TOTAL 0.5 mg/dL (0.2-1.0); CREATININE 0.6 mg/dL (0.5-1.5); CRP QUANTITATIVE 25.4 mg/L (0.00-9.0); POTASSIUM 4.2 mmol/L (3.5-5.1); TOTAL PROTEIN, SERUM 6.7 g/dL (6.0-8.3)
[2020-01-27] MEDS: ACETYLCYSTEINE 600 MG CAPSULE PO SCH ×2 (09:01→20:23)
[2020-01-27] MEDS: PANTOPRAZOLE SODIUM 40 MG TABLET.DR PO SCH (09:01)
[2020-01-27] MEDS: CLONAZEPAM 0.5 MG TABLET PO PRN (09:02)
[2020-01-27] MEDS: ENOXAPARIN SODIUM 80 MG/0.8 ML SQ SCH ×2 (09:02→20:24)
[2020-01-27] MEDS ORDERED: ENOXAPARIN SODIUM 1 MG/KG SQ SCH (21:00)
[2020-01-27] MEDS ORDERED: REMDESIVIR (INVESTIGATIONAL) 200 MG/250 ML NS IV ONE (21:00)
--- NOTE | 2020-01-27 22:24 | NUR ---
SHIFT PT HEART RATE REMAINS INCREASED MILD DISTRESS NOTED ON EXERTION AND TALKING. PT ENCOURaGED TO RELAX INCREaSE HIGH FLOW TO 60% r/t so2 sat of 88-90 now sats 94-96 pt leep turing on side an dnot prone pt stted she in uncomfortable on belly and feel like vomiting on belly .
[2020-01-28] VITALS (35 sets, daily range): BP systolic 90–161; BP diastolic 35–110
[2020-01-28] MEDS: METHYLPREDNISOLONE SOD SUCC 40MG/ML 1ML IVP SCH ×3 (00:24→17:23)
[2020-01-28] MEDS: ALBUTEROL INHALER 90MCG/INH IH SCH ×6 (02:00→22:57)
[2020-01-28] MEDS: FUROSEMIDE 10 MG/ML 2ML VIAL IV SCH ×3 (06:55→17:23)
[2020-01-28 07:14] LABS: HEMATOCRIT 45.4 % (36-48); MEAN CORPUSCULAR HEMOGLOBIN 29.6 pg (27.0-33.0); MEAN CORPUSCULAR HGB CONC 32.2 g/dL (32.0-36.0); MEAN CORPUSCULAR VOLUME 92.1 fL (79-99); PLATELET COUNT (AUTO) 405 K/uL (130-400); RED BLOOD CELL COUNT(AUTO) 4.93 MIL/uL (4.00-5.50); WHITE BLOOD COUNT (AUTO) 18.9 K/uL (4.8-10.8)
[2020-01-28 08:06] LABS: ALBUMIN 2.7 g/dL (3.5-5.0); BILIRUBIN,TOTAL 0.5 mg/dL (0.2-1.0); CREATININE 0.6 mg/dL (0.5-1.5); CRP QUANTITATIVE 20.7 mg/L (0.00-9.0); POTASSIUM 3.4 mmol/L (3.5-5.1); TOTAL PROTEIN, SERUM 6.3 g/dL (6.0-8.3)
[2020-01-28 09:04] LABS: LYMPHOCYTES % (MANUAL) 5 % (22-44); MAN.DIFF COMMENT-IMPRESSION MANUAL DIFFERENTIAL; MONOCYTES % (MANUAL) 1 % (2-9); PLATELET MORPHOLOGY COMMENT ADEQUATE; SEGMENTED NEUTROPHILS % 94 % (40-70)
[2020-01-28] MEDS ORDERED: METHYLPREDNISOLONE SOD SUCC 125MG/2ML VIAL ONE (10:22)
[2020-01-28] MEDS: POTASSIUM CHLORIDE 10% ELIXIR 20 MEQ/15 ML UDCUP PO PRN ×2 (10:24→10:26)
[2020-01-28] MEDS: PANTOPRAZOLE SODIUM 40 MG TABLET.DR PO SCH (10:25)
[2020-01-28] MEDS: ENOXAPARIN SODIUM 80 MG/0.8 ML SQ SCH ×2 (10:25→20:10)
[2020-01-28] MEDS: ACETYLCYSTEINE 600 MG CAPSULE PO SCH ×2 (10:25→20:10)
[2020-01-28] MEDS ORDERED: COMPOUND IV REFRIGERATED 1 EACH IVSOLN MISC PRN (13:00)
[2020-01-28] MEDS: REMDESIVIR (INVESTIGATIONAL) 100 MG/250ML NS IV SCH (20:10)
[2020-01-29] VITALS (37 sets, daily range): BP systolic 104–133; BP diastolic 41–82
[2020-01-29] MEDS: METHYLPREDNISOLONE SOD SUCC 40MG/ML 1ML IVP SCH ×3 (00:08→17:45)
[2020-01-29] MEDS: ALBUTEROL INHALER 90MCG/INH IH SCH ×6 (04:19→22:21)
[2020-01-29 05:44] LABS: HEMATOCRIT 45.9 % (36-48); MEAN CORPUSCULAR HGB CONC 32.7 g/dL (32.0-36.0); MEAN CORPUSCULAR VOLUME 91.8 fL (79-99); PLATELET COUNT (AUTO) 338 K/uL (130-400); RED CELL DISTRIBUTION WIDTH 14.2 % (11.0-15.5); WHITE BLOOD COUNT (AUTO) 18.3 K/uL (4.8-10.8)
[2020-01-29 06:10] LABS: LYMPHOCYTES % (MANUAL) 1 % (22-44); MAN.DIFF COMMENT-IMPRESSION MANUAL DIFFERENTIAL; MONOCYTES % (MANUAL) 2 % (2-9); PLATELET MORPHOLOGY COMMENT ADEQUATE; SEGMENTED NEUTROPHILS % 97 % (40-70)
[2020-01-29] MEDS: FUROSEMIDE 10 MG/ML 2ML VIAL IV SCH ×2 (06:15→17:45)
[2020-01-29] MEDS ORDERED: ENOXAPARIN SODIUM 100 MG/1 ML SQ ONE (08:51)
[2020-01-29] MEDS ORDERED: METHYLPREDNISOLONE SOD SUCC 125MG/2ML VIAL ONE (08:51)
[2020-01-29] MEDS: ACETYLCYSTEINE 600 MG CAPSULE PO SCH ×2 (08:55→19:57)
[2020-01-29] MEDS: ENOXAPARIN SODIUM 80 MG/0.8 ML SQ SCH ×2 (08:57→19:58)
[2020-01-29] MEDS: PANTOPRAZOLE SODIUM 40 MG TABLET.DR PO SCH (08:57)
[2020-01-29 09:41] LABS: BILIRUBIN,TOTAL 0.7 mg/dL (0.2-1.0); CREATININE 0.4 mg/dL (0.5-1.5); CRP QUANTITATIVE 18.6 mg/L (0.00-9.0); POTASSIUM 4.4 mmol/L (3.5-5.1); TOTAL PROTEIN, SERUM 6.2 g/dL (6.0-8.3)
[2020-01-29] MEDS: REMDESIVIR (INVESTIGATIONAL) 100 MG/250ML NS IV SCH (19:57)
[2020-01-30] VITALS (37 sets, daily range): BP systolic 105–143; BP diastolic 45–80
[2020-01-30] MEDS: METHYLPREDNISOLONE SOD SUCC 40MG/ML 1ML IVP SCH ×3 (01:16→20:16)
[2020-01-30] MEDS: ALBUTEROL INHALER 90MCG/INH IH SCH ×6 (01:17→21:32)
[2020-01-30 04:31] LABS: BASOPHILS % (AUTO) 0.1 % (0.0-5.0); EOSINOPHILS % (AUTO) 0.1 % (0.0-8.0); HEMATOCRIT 42.9 % (36-48); LYMPHOCYTES % (AUTO) 3.9 % (21.0-51.0); MEAN CORPUSCULAR HEMOGLOBIN 29.2 pg (27.0-33.0); MEAN CORPUSCULAR HGB CONC 32.6 g/dL (32.0-36.0); MEAN CORPUSCULAR VOLUME 89.4 fL (79-99); MONOCYTES % (AUTO) 1.5 % (3.0-13.0); NEUTROPHILS % (AUTO) 93.1 % (40.0-77.0); PLATELET COUNT (AUTO) 346 K/uL (130-400); RED CELL DISTRIBUTION WIDTH 13.9 % (11.0-15.5); WHITE BLOOD COUNT (AUTO) 19.3 K/uL (4.8-10.8)
[2020-01-30 05:26] LABS: ALBUMIN 2.7 g/dL (3.5-5.0); BILIRUBIN,TOTAL 0.8 mg/dL (0.2-1.0); CREATININE 0.4 mg/dL (0.5-1.5); CRP QUANTITATIVE 10.5 mg/L (0.00-9.0); MAGNESIUM 3.3 mg/dL (1.80-2.40); PHOSPHORUS 3.4 mg/dL (2.5-4.9); POTASSIUM 3.4 mmol/L (3.5-5.1); TOTAL PROTEIN, SERUM 6.1 g/dL (6.0-8.3)
[2020-01-30] MEDS: FUROSEMIDE 10 MG/ML 2ML VIAL IV SCH ×2 (06:06→17:29)
[2020-01-30] MEDS: POTASSIUM CHLORIDE 10% ELIXIR 20 MEQ/15 ML UDCUP PO PRN ×2 (06:10→08:22)
[2020-01-30] MEDS ORDERED: ENOXAPARIN SODIUM 100 MG/1 ML SQ ONE (08:10)
[2020-01-30] MEDS: PANTOPRAZOLE SODIUM 40 MG TABLET.DR PO SCH (08:22)
[2020-01-30] MEDS: ACETYLCYSTEINE 600 MG CAPSULE PO SCH ×2 (08:22→21:31)
[2020-01-30] MEDS: ENOXAPARIN SODIUM 80 MG/0.8 ML SQ SCH ×2 (08:24→20:16)
[2020-01-31] VITALS (32 sets, daily range): BP systolic 79–128; BP diastolic 29–85
[2020-01-31] MEDS: ALBUTEROL INHALER 90MCG/INH IH SCH ×6 (02:10→22:28)
[2020-01-31 04:53] LABS: BASOPHILS % (AUTO) 0.2 % (0.0-5.0); HEMATOCRIT 44.1 % (36-48); LYMPHOCYTES % (AUTO) 3.1 % (21.0-51.0); MEAN CORPUSCULAR HEMOGLOBIN 29.1 pg (27.0-33.0); MEAN CORPUSCULAR HGB CONC 32.7 g/dL (32.0-36.0); MEAN CORPUSCULAR VOLUME 89.3 fL (79-99); MONOCYTES % (AUTO) 1.2 % (3.0-13.0); PLATELET COUNT (AUTO) 331 K/uL (130-400); RED BLOOD CELL COUNT(AUTO) 4.94 MIL/uL (4.00-5.50); RED CELL DISTRIBUTION WIDTH 14.2 % (11.0-15.5); WHITE BLOOD COUNT (AUTO) 19.4 K/uL (4.8-10.8)
[2020-01-31 05:04] LABS: ALBUMIN 2.8 g/dL (3.5-5.0); BILIRUBIN,TOTAL 0.8 mg/dL (0.2-1.0); CREATININE 0.5 mg/dL (0.5-1.5); CRP QUANTITATIVE 11.7 mg/L (0.00-9.0); POTASSIUM 3.7 mmol/L (3.5-5.1); TOTAL PROTEIN, SERUM 6.1 g/dL (6.0-8.3)
[2020-01-31] MEDS: FUROSEMIDE 10 MG/ML 2ML VIAL IV SCH (06:10)
[2020-01-31] MEDS: PANTOPRAZOLE SODIUM 40 MG TABLET.DR PO SCH (08:47)
[2020-01-31] MEDS: ACETYLCYSTEINE 600 MG CAPSULE PO SCH ×2 (08:47→20:30)
[2020-01-31] MEDS: METHYLPREDNISOLONE SOD SUCC 40MG/ML 1ML IVP SCH ×2 (08:48→20:30)
[2020-01-31] MEDS: ENOXAPARIN SODIUM 80 MG/0.8 ML SQ SCH ×2 (08:55→20:30)
[2020-02-01] VITALS (34 sets, daily range): BP systolic 104–145; BP diastolic 44–81
[2020-02-01 04:22] LABS: HEMATOCRIT 41.3 % (36-48); MEAN CORPUSCULAR HEMOGLOBIN 28.5 pg (27.0-33.0); MEAN CORPUSCULAR HGB CONC 32.2 g/dL (32.0-36.0); MEAN CORPUSCULAR VOLUME 88.6 fL (79-99); PLATELET COUNT (AUTO) 264 K/uL (130-400); RED BLOOD CELL COUNT(AUTO) 4.66 MIL/uL (4.00-5.50); RED CELL DISTRIBUTION WIDTH 14.2 % (11.0-15.5); WHITE BLOOD COUNT (AUTO) 17.6 K/uL (4.8-10.8)
[2020-02-01 04:48] LABS: ALBUMIN 2.5 g/dL (3.5-5.0); BILIRUBIN,TOTAL 0.7 mg/dL (0.2-1.0); CREATININE 0.4 mg/dL (0.5-1.5); CRP QUANTITATIVE 21.3 mg/L (0.00-9.0); POTASSIUM 3.4 mmol/L (3.5-5.1); TOTAL PROTEIN, SERUM 5.8 g/dL (6.0-8.3)
[2020-02-01 04:56] LABS: SEGMENTED NEUTROPHILS % 100 % (40-70)
[2020-02-01 04:57] LABS: MAN.DIFF COMMENT-IMPRESSION MANUAL DIFFERENTIAL; PLATELET MORPHOLOGY COMMENT ADEQUATE
[2020-02-01] MEDS: ALBUTEROL INHALER 90MCG/INH IH SCH ×4 (05:44→22:00)
[2020-02-01] MEDS: POTASSIUM CHLORIDE 10% ELIXIR 20 MEQ/15 ML UDCUP PO PRN (05:44)
[2020-02-01] MEDS: ACETYLCYSTEINE 600 MG CAPSULE PO SCH ×2 (08:17→20:04)
[2020-02-01] MEDS: PANTOPRAZOLE SODIUM 40 MG TABLET.DR PO SCH (08:17)
[2020-02-01] MEDS: METHYLPREDNISOLONE SOD SUCC 40MG/ML 1ML IVP SCH ×2 (08:17→20:04)
[2020-02-01] MEDS: ENOXAPARIN SODIUM 80 MG/0.8 ML SQ SCH ×2 (15:02→20:04)
[2020-02-02] VITALS (34 sets, daily range): BP systolic 96–137; BP diastolic 48–101
[2020-02-02 06:07] LABS: BASOPHILS % (AUTO) 0.2 % (0.0-5.0); EOSINOPHILS % (AUTO) 0.1 % (0.0-8.0); HEMATOCRIT 38.6 % (36-48); LYMPHOCYTES % (AUTO) 4.3 % (21.0-51.0); MEAN CORPUSCULAR HEMOGLOBIN 28.9 pg (27.0-33.0); MEAN CORPUSCULAR HGB CONC 32.4 g/dL (32.0-36.0); MEAN CORPUSCULAR VOLUME 89.4 fL (79-99); MONOCYTES % (AUTO) 1.3 % (3.0-13.0); NEUTROPHILS % (AUTO) 92.1 % (40.0-77.0); PLATELET COUNT (AUTO) 220 K/uL (130-400); RED BLOOD CELL COUNT(AUTO) 4.32 MIL/uL (4.00-5.50)
[2020-02-02] MEDS: ALBUTEROL INHALER 90MCG/INH IH SCH ×5 (06:16→17:14)
[2020-02-02 06:56] LABS: ALBUMIN 2.4 g/dL (3.5-5.0); BILIRUBIN,TOTAL 0.6 mg/dL (0.2-1.0); CREATININE 0.3 mg/dL (0.5-1.5); CRP QUANTITATIVE 18.9 mg/L (0.00-9.0); POTASSIUM 3.7 mmol/L (3.5-5.1); TOTAL PROTEIN, SERUM 5.4 g/dL (6.0-8.3)
[2020-02-02] MEDS: PANTOPRAZOLE SODIUM 40 MG TABLET.DR PO SCH (09:22)
[2020-02-02] MEDS: ENOXAPARIN SODIUM 80 MG/0.8 ML SQ SCH ×2 (09:22→20:25)
[2020-02-02] MEDS: ACETYLCYSTEINE 600 MG CAPSULE PO SCH ×2 (09:23→20:24)
[2020-02-02] MEDS: METHYLPREDNISOLONE SOD SUCC 40MG/ML 1ML IVP SCH (09:23)
[2020-02-03] VITALS (23 sets, daily range): BP systolic 111–142; BP diastolic 58–75
[2020-02-03] MEDS: ALBUTEROL INHALER 90MCG/INH IH SCH ×7 (02:47→23:36)
[2020-02-03 04:59] LABS: HEMATOCRIT 36.1 % (36-48); MEAN CORPUSCULAR HEMOGLOBIN 29.7 pg (27.0-33.0); MEAN CORPUSCULAR HGB CONC 33.5 g/dL (32.0-36.0); MEAN CORPUSCULAR VOLUME 88.5 fL (79-99); PLATELET COUNT (AUTO) 202 K/uL (130-400); RED BLOOD CELL COUNT(AUTO) 4.08 MIL/uL (4.00-5.50); RED CELL DISTRIBUTION WIDTH 14.1 % (11.0-15.5); WHITE BLOOD COUNT (AUTO) 14.1 K/uL (4.8-10.8)
[2020-02-03 05:12] LABS: ALBUMIN 2.2 g/dL (3.5-5.0); BILIRUBIN,TOTAL 0.7 mg/dL (0.2-1.0); CREATININE 0.3 mg/dL (0.5-1.5); POTASSIUM 3.4 mmol/L (3.5-5.1); TOTAL PROTEIN, SERUM 5.1 g/dL (6.0-8.3)
[2020-02-03 05:21] LABS: EOSINOPHILS % (MANUAL) 4 % (1-6); LYMPHOCYTES % (MANUAL) 3 % (22-44); MONOCYTES % (MANUAL) 1 % (2-9); SEGMENTED NEUTROPHILS % 92 % (40-70)
[2020-02-03 05:22] LABS: MAN.DIFF COMMENT-IMPRESSION MANUAL DIFFERENTIAL
[2020-02-03 05:24] LABS: PLATELET MORPHOLOGY COMMENT ADEQUATE
--- NOTE | 2020-02-03 08:00 | NUR ---
AM ASSESSMENT PT LAYING IN BED, PRONE. A/O X 3. ANXIOUS. SOB ON EXERTION. NO DISTRESS NOTED. NRBM @ 15L. DENIES CHEST PAIN OR DISCOMFORT. DENIES PALPITATIONS. TELE: /TORI. 16 FR FC, PATENT & DRAINING. DENIES N/V AND/OR DIARRHEA. BEDREST. INSTRUCTED TO CALL FOR ASSISTANCE. CALL DARLING W/IN REACH.
[2020-02-03] MEDS: PANTOPRAZOLE SODIUM 40 MG TABLET.DR PO SCH (08:26)
[2020-02-03] MEDS: ACETYLCYSTEINE 600 MG CAPSULE PO SCH ×2 (08:26→20:15)
[2020-02-03] MEDS: METHYLPREDNISOLONE SOD SUCC 40MG/ML 1ML IVP SCH (08:26)
[2020-02-03] MEDS: ENOXAPARIN SODIUM 80 MG/0.8 ML SQ SCH ×2 (08:26→20:16)
[2020-02-04] VITALS (22 sets, daily range): BP systolic 113–147; BP diastolic 56–81
[2020-02-04] MEDS: ALBUTEROL INHALER 90MCG/INH IH SCH ×6 (02:18→21:08)
[2020-02-04 04:58] LABS: BASOPHILS % (AUTO) 0.2 % (0.0-5.0); EOSINOPHILS % (AUTO) 2.5 % (0.0-8.0); LYMPHOCYTES % (AUTO) 5.1 % (21.0-51.0); MEAN CORPUSCULAR HEMOGLOBIN 29.6 pg (27.0-33.0); MEAN CORPUSCULAR HGB CONC 33.3 g/dL (32.0-36.0); MEAN CORPUSCULAR VOLUME 88.7 fL (79-99); MONOCYTES % (AUTO) 1.7 % (3.0-13.0); NEUTROPHILS % (AUTO) 88.7 % (40.0-77.0); PLATELET COUNT (AUTO) 177 K/uL (130-400); RED BLOOD CELL COUNT(AUTO) 4.06 MIL/uL (4.00-5.50); RED CELL DISTRIBUTION WIDTH 14.2 % (11.0-15.5)
[2020-02-04 05:27] LABS: ALBUMIN 2.2 g/dL (3.5-5.0); BILIRUBIN,TOTAL 0.6 mg/dL (0.2-1.0); CREATININE 0.4 mg/dL (0.5-1.5); CRP QUANTITATIVE 60.6 mg/L (0.00-9.0); POTASSIUM 3.4 mmol/L (3.5-5.1); TOTAL PROTEIN, SERUM 5.2 g/dL (6.0-8.3)
[2020-02-04] MEDS: POTASSIUM CHLORIDE 10% ELIXIR 20 MEQ/15 ML UDCUP PO PRN (06:39)
[2020-02-04] MEDS: METHYLPREDNISOLONE SOD SUCC 40MG/ML 1ML IVP SCH ×3 (08:08→20:52)
[2020-02-04] MEDS: PANTOPRAZOLE SODIUM 40 MG TABLET.DR PO SCH (08:08)
[2020-02-04] MEDS: ACETYLCYSTEINE 600 MG CAPSULE PO SCH ×2 (08:08→20:52)
[2020-02-04] MEDS: ENOXAPARIN SODIUM 80 MG/0.8 ML SQ SCH ×2 (08:09→20:51)
[2020-02-04] MEDS: POTASSIUM CHLORIDE 20 MEQ ERTAB PO PRN (11:23)
[2020-02-04] MEDS: CLONAZEPAM 0.5 MG TABLET PO PRN (17:13)
[2020-02-05] VITALS (18 sets, daily range): BP systolic 111–154; BP diastolic 62–93
[2020-02-05] MEDS: ALBUTEROL INHALER 90MCG/INH IH SCH ×6 (02:00→22:00)
[2020-02-05] MEDS: ACETAMINOPHEN 325 MG TAB PO PRN (03:11)
[2020-02-05 04:22] LABS: BASOPHILS % (AUTO) 0.4 % (0.0-5.0); HEMATOCRIT 35.4 % (36-48); LYMPHOCYTES % (AUTO) 3.7 % (21.0-51.0); MEAN CORPUSCULAR HEMOGLOBIN 29.8 pg (27.0-33.0); MEAN CORPUSCULAR HGB CONC 33.6 g/dL (32.0-36.0); MEAN CORPUSCULAR VOLUME 88.5 fL (79-99); MONOCYTES % (AUTO) 1.5 % (3.0-13.0); NEUTROPHILS % (AUTO) 91.9 % (40.0-77.0); PLATELET COUNT (AUTO) 172 K/uL (130-400); RED CELL DISTRIBUTION WIDTH 14.3 % (11.0-15.5); WHITE BLOOD COUNT (AUTO) 8.1 K/uL (4.8-10.8)
[2020-02-05 04:36] LABS: B-TYPE NATRIURETIC PEPTIDE 20 pg/mL (0-100); CREATININE 0.4 mg/dL (0.5-1.5); CRP QUANTITATIVE 70.2 mg/L (0.00-9.0); POTASSIUM 3.9 mmol/L (3.5-5.1)
[2020-02-05] MEDS: METHYLPREDNISOLONE SOD SUCC 40MG/ML 1ML IVP SCH ×2 (08:31→20:37)
[2020-02-05] MEDS: ACETYLCYSTEINE 600 MG CAPSULE PO SCH ×2 (08:31→20:37)
[2020-02-05] MEDS: PANTOPRAZOLE SODIUM 40 MG TABLET.DR PO SCH (08:31)
[2020-02-05] MEDS: CLONAZEPAM 0.5 MG TABLET PO PRN (08:31)
--- NOTE | 2020-02-05 11:55 | NUR ---
PHONE CALL FAMILY UPDATED
--- NOTE | 2020-02-05 12:00 | NUR ---
pt aaox4 pt in prone position resp tachypneic and labored at rest pt on high flow @ 25lpm and 30% also on nrb @ 15lpm pt tachycardic 120-140, 02 sat high 80s-90s Dr. Cooper at bedside. no change in plan of care at this time.
--- NOTE | 2020-02-05 18:55 | NUR ---
report endorsed to NAINA rAellano
[2020-02-06] VITALS (31 sets, daily range): BP systolic 119–171; BP diastolic 55–107
[2020-02-06] MEDS: ALBUTEROL INHALER 90MCG/INH IH SCH ×6 (01:45→22:39)
[2020-02-06] MEDS: CLONAZEPAM 0.5 MG TABLET PO PRN (04:09)
[2020-02-06 04:34] LABS: BASOPHILS % (AUTO) 0.6 % (0.0-5.0); EOSINOPHILS % (AUTO) 0.7 % (0.0-8.0); HEMATOCRIT 37.8 % (36-48); LYMPHOCYTES % (AUTO) 7.2 % (21.0-51.0); MEAN CORPUSCULAR HEMOGLOBIN 29.3 pg (27.0-33.0); MEAN CORPUSCULAR HGB CONC 33.6 g/dL (32.0-36.0); MEAN CORPUSCULAR VOLUME 87.1 fL (79-99); MONOCYTES % (AUTO) 2.5 % (3.0-13.0); NEUTROPHILS % (AUTO) 85.1 % (40.0-77.0); PLATELET COUNT (AUTO) 213 K/uL (130-400); RED BLOOD CELL COUNT(AUTO) 4.34 MIL/uL (4.00-5.50); RED CELL DISTRIBUTION WIDTH 14.5 % (11.0-15.5); WHITE BLOOD COUNT (AUTO) 8.2 K/uL (4.8-10.8)
[2020-02-06 04:52] LABS: ALBUMIN 2.4 g/dL (3.5-5.0); BILIRUBIN,TOTAL 0.5 mg/dL (0.2-1.0); CREATININE 0.3 mg/dL (0.5-1.5); CRP QUANTITATIVE 34.2 mg/L (0.00-9.0); TOTAL PROTEIN, SERUM 5.9 g/dL (6.0-8.3)
--- NOTE | 2020-02-06 08:30 | NUR ---
Pt resp labored at rest in prone position. unable to tolerate supine position for CT. pt tachycardic 130-140, RR 42, 02 sat low 90s on highflow 50% 30lpm. Dr. Cooper and Dr. Escalante made aware. Awaiting response on update for plan of care.
[2020-02-06] MEDS: METHYLPREDNISOLONE SOD SUCC 40MG/ML 1ML IVP SCH ×2 (08:50→20:25)
[2020-02-06] MEDS: PANTOPRAZOLE SODIUM 40 MG TABLET.DR PO SCH (08:50)
[2020-02-06] MEDS: ACETYLCYSTEINE 600 MG CAPSULE PO SCH ×2 (08:50→20:43)
[2020-02-06] MEDS ORDERED: ENOXAPARIN SODIUM 80 MG/0.8 ML SQ SCH (09:00)
--- NOTE | 2020-02-06 10:11 | NUR ---
pt had 12 second run of Vtach. RN made Dr. Maldonado aware. aware of pt's DNI and full code status. No new interventions at this time.
--- NOTE | 2020-02-06 10:25 | NUR ---
Spoke to Dr. Escalante in regard to run of Vtach and resp status. Verbal order for lopressor 5mg IVp q6h with holding parameters. Verbal order for klonopin dose to be increased to 0.5mg. RN will continue to monitor pt.
[2020-02-06] MEDS ORDERED: METOPROLOL TARTRATE 1 MG/ML 5ML VIAL IV ONE (10:54)
[2020-02-06] MEDS: METOPROLOL TARTRATE 1 MG/ML 5ML VIAL IV SCH ×3 (11:06→23:31)
[2020-02-06 12:51] LABS: INR 0.99 (0.85-1.15); PARTIAL THROMBOPLASTIN TIME 27.3 SEC (26.3-35.5); PROTHROMBIN TIME 10.7 SEC (9.6-11.6)
--- NOTE | 2020-02-06 14:11 | NUR ---
PHONE CALL UPDATED PATIENTS DAUGHTER FRANNY ON PATIENT STATUS AND GAVE OPPORTUNITY TO ASK QUESTIONS.
[2020-02-06] MEDS: ENOXAPARIN SODIUM 80 MG/0.8 ML SQ SCH (20:43)
[2020-02-07] VITALS (14 sets, daily range): BP systolic 109–146; BP diastolic 56–94
[2020-02-07] MEDS: ALBUTEROL INHALER 90MCG/INH IH SCH ×6 (02:00→21:04)
[2020-02-07] MEDS: METOPROLOL TARTRATE 1 MG/ML 5ML VIAL IV SCH ×4 (04:51→23:00)
[2020-02-07 05:37] LABS: MEAN CORPUSCULAR HEMOGLOBIN 29.5 pg (27.0-33.0); MEAN CORPUSCULAR HGB CONC 33.2 g/dL (32.0-36.0); MEAN CORPUSCULAR VOLUME 88.7 fL (79-99); PLATELET COUNT (AUTO) 188 K/uL (130-400); RED BLOOD CELL COUNT(AUTO) 4.17 MIL/uL (4.00-5.50); RED CELL DISTRIBUTION WIDTH 14.7 % (11.0-15.5); WHITE BLOOD COUNT (AUTO) 5.7 K/uL (4.8-10.8)
[2020-02-07 05:46] LABS: BAND NEUTROPHILS % (MANUAL) 8 % (0-2); LYMPHOCYTES % (MANUAL) 8 % (22-44); MAN.DIFF COMMENT-IMPRESSION MANUAL DIFFERENTIAL; MONOCYTES % (MANUAL) 4 % (2-9); SEGMENTED NEUTROPHILS % 80 % (40-70)
[2020-02-07 05:47] LABS: PLATELET MORPHOLOGY COMMENT ADEQUATE
[2020-02-07 05:56] LABS: ALBUMIN 2.3 g/dL (3.5-5.0); BILIRUBIN,TOTAL 0.5 mg/dL (0.2-1.0); CREATININE 0.2 mg/dL (0.5-1.5); CRP QUANTITATIVE 32.1 mg/L (0.00-9.0); MAGNESIUM 2.3 mg/dL (1.80-2.40); POTASSIUM 3.9 mmol/L (3.5-5.1); TOTAL PROTEIN, SERUM 5.7 g/dL (6.0-8.3)
[2020-02-07] MEDS: METHYLPREDNISOLONE SOD SUCC 40MG/ML 1ML IVP SCH ×2 (08:43→21:03)
[2020-02-07] MEDS: ACETYLCYSTEINE 600 MG CAPSULE PO SCH ×2 (08:43→21:03)
[2020-02-07] MEDS: PANTOPRAZOLE SODIUM 40 MG TABLET.DR PO SCH (08:44)
[2020-02-07] MEDS: ENOXAPARIN SODIUM 80 MG/0.8 ML SQ SCH ×2 (08:45→21:04)
[2020-02-08] VITALS (9 sets, daily range): BP systolic 99–126; BP diastolic 48–71
[2020-02-08] MEDS: ALBUTEROL INHALER 90MCG/INH IH SCH ×6 (02:09→22:05)
[2020-02-08 04:31] LABS: BASOPHILS % (AUTO) 0.5 % (0.0-5.0); EOSINOPHILS % (AUTO) 0.3 % (0.0-8.0); HEMATOCRIT 37.3 % (36-48); LYMPHOCYTES % (AUTO) 6.4 % (21.0-51.0); MEAN CORPUSCULAR HEMOGLOBIN 29.4 pg (27.0-33.0); MEAN CORPUSCULAR HGB CONC 32.7 g/dL (32.0-36.0); MEAN CORPUSCULAR VOLUME 89.9 fL (79-99); MONOCYTES % (AUTO) 3.3 % (3.0-13.0); NEUTROPHILS % (AUTO) 85.1 % (40.0-77.0); PLATELET COUNT (AUTO) 199 K/uL (130-400); RED BLOOD CELL COUNT(AUTO) 4.15 MIL/uL (4.00-5.50); RED CELL DISTRIBUTION WIDTH 14.6 % (11.0-15.5); WHITE BLOOD COUNT (AUTO) 6.4 K/uL (4.8-10.8)
[2020-02-08 04:52] LABS: ALBUMIN 2.3 g/dL (3.5-5.0); BILIRUBIN,TOTAL 0.5 mg/dL (0.2-1.0); CREATININE 0.3 mg/dL (0.5-1.5); MAGNESIUM 2.2 mg/dL (1.80-2.40); TOTAL PROTEIN, SERUM 5.5 g/dL (6.0-8.3)
[2020-02-08] MEDS: METOPROLOL TARTRATE 1 MG/ML 5ML VIAL IV SCH ×4 (05:48→22:13)
[2020-02-08] MEDS: ACETYLCYSTEINE 600 MG CAPSULE PO SCH ×2 (08:34→20:39)
[2020-02-08] MEDS: METHYLPREDNISOLONE SOD SUCC 40MG/ML 1ML IVP SCH ×2 (08:34→20:39)
[2020-02-08] MEDS: ENOXAPARIN SODIUM 80 MG/0.8 ML SQ SCH (08:34)
[2020-02-08] MEDS: PANTOPRAZOLE SODIUM 40 MG TABLET.DR PO SCH (08:34)
--- NOTE | 2020-02-08 12:00 | NUR ---
DNI SIGNED PT HAS EXPRESSED WISHES OF DNI AND FORM WAS SIGNED BY PT. FAMILY AND DR. POLANCO MADE AWARE. VIDEO CALL WITH FAMILY WAS ARRANGED AND FAMILY UPDATED ON PT'S CONDITION. PT REMAINS PRONE FOR BEST OXYGENATION AND O2 SATS ARE 92% AT REST, HR IN 120S, MD INFORMED.
--- NOTE | 2020-02-08 13:53 | NUR ---
RD FOLLOW UP Pt with Clear Liquid Diet order x 10 days. Pt with Non-rebreather mask, inhibited consumption/chewing of foods, refusal of intubation, as per RN. Prone positioning. Recommend Full Liquid Diet order Recommend Ensure TID with meals RD to continue to monitor. Please notify as additional nutrition concerns arise. Thank you.
[2020-02-08] MEDS: CLONAZEPAM 0.5 MG TABLET PO PRN (20:39)
[2020-02-09] VITALS (13 sets, daily range): BP systolic 84–149; BP diastolic 45–103
[2020-02-09] MEDS: ALBUTEROL INHALER 90MCG/INH IH SCH ×6 (02:39→22:48)
[2020-02-09 03:57] LABS: BASOPHILS % (AUTO) 0.5 % (0.0-5.0); EOSINOPHILS % (AUTO) 0.3 % (0.0-8.0); HEMATOCRIT 36.6 % (36-48); MEAN CORPUSCULAR HEMOGLOBIN 29.5 pg (27.0-33.0); MEAN CORPUSCULAR HGB CONC 33.3 g/dL (32.0-36.0); MEAN CORPUSCULAR VOLUME 88.4 fL (79-99); MONOCYTES % (AUTO) 3.4 % (3.0-13.0); NEUTROPHILS % (AUTO) 84.6 % (40.0-77.0); PLATELET COUNT (AUTO) 217 K/uL (130-400); RED BLOOD CELL COUNT(AUTO) 4.14 MIL/uL (4.00-5.50); RED CELL DISTRIBUTION WIDTH 14.6 % (11.0-15.5); WHITE BLOOD COUNT (AUTO) 6.5 K/uL (4.8-10.8)
[2020-02-09 04:15] LABS: ALBUMIN 2.3 g/dL (3.5-5.0); BILIRUBIN,TOTAL 0.5 mg/dL (0.2-1.0); CREATININE 0.2 mg/dL (0.5-1.5); CRP QUANTITATIVE 28.6 mg/L (0.00-9.0); MAGNESIUM 2.2 mg/dL (1.80-2.40); POTASSIUM 3.8 mmol/L (3.5-5.1); TOTAL PROTEIN, SERUM 5.7 g/dL (6.0-8.3)
[2020-02-09 04:38] LABS: INR 0.97 (0.85-1.15); PARTIAL THROMBOPLASTIN TIME 24.8 SEC (26.3-35.5); PROTHROMBIN TIME 10.5 SEC (9.6-11.6)
[2020-02-09] MEDS: METOPROLOL TARTRATE 1 MG/ML 5ML VIAL IV SCH ×4 (05:23→23:53)
--- NOTE | 2020-02-09 05:24 | NUR ---
NURSING PT TURNED SUPINE R/T PT REQUEST PT STATED PLEASE PLEASE FLIP. PT VS REMAIN STABLE AT THIS TIME. 94% HIGH FLOW 95%
[2020-02-09] MEDS: MORPHINE SULFATE 2 MG/ML 1ML SYG IV PRN ×2 (05:34→20:11)
[2020-02-09] MEDS: PANTOPRAZOLE SODIUM 40 MG TABLET.DR PO SCH (08:54)
[2020-02-09] MEDS: ACETYLCYSTEINE 600 MG CAPSULE PO SCH ×2 (08:54→20:11)
[2020-02-09] MEDS: METHYLPREDNISOLONE SOD SUCC 40MG/ML 1ML IVP SCH ×2 (08:55→20:11)
[2020-02-09] MEDS: ENOXAPARIN SODIUM 80 MG/0.8 ML SQ SCH (08:55)
[2020-02-09] MEDS ORDERED: ENOXAPARIN SODIUM 1 MG/KG SQ SCH (09:00)
[2020-02-09] MEDS: CLONAZEPAM 0.5 MG TABLET PO PRN (15:12)
[2020-02-10] VITALS (13 sets, daily range): BP systolic 110–144; BP diastolic 48–93
[2020-02-10] MEDS: ALBUTEROL INHALER 90MCG/INH IH SCH ×6 (02:11→22:04)
[2020-02-10] MEDS: MORPHINE SULFATE 2 MG/ML 1ML SYG IV PRN ×4 (05:36→22:20)
[2020-02-10] MEDS: METOPROLOL TARTRATE 1 MG/ML 5ML VIAL IV SCH ×4 (05:37→22:20)
[2020-02-10 06:44] LABS: HEMATOCRIT 36.6 % (36-48); MEAN CORPUSCULAR HEMOGLOBIN 29.8 pg (27.0-33.0); MEAN CORPUSCULAR HGB CONC 33.3 g/dL (32.0-36.0); MEAN CORPUSCULAR VOLUME 89.5 fL (79-99); PLATELET COUNT (AUTO) 217 K/uL (130-400); RED BLOOD CELL COUNT(AUTO) 4.09 MIL/uL (4.00-5.50); RED CELL DISTRIBUTION WIDTH 14.7 % (11.0-15.5); WHITE BLOOD COUNT (AUTO) 6.7 K/uL (4.8-10.8)
--- NOTE | 2020-02-10 06:46 | NUR ---
NURSING PT CONTINUES WITH ANXIETY AND sob MEDICATIONS GIVEN DIRECTED PT REAMINS ST bP STABLE
[2020-02-10 07:36] LABS: ALBUMIN 2.2 g/dL (3.5-5.0); BILIRUBIN,TOTAL 0.4 mg/dL (0.2-1.0); CREATININE 0.3 mg/dL (0.5-1.5); CRP QUANTITATIVE 67.1 mg/L (0.00-9.0); MAGNESIUM 2.2 mg/dL (1.80-2.40); POTASSIUM 3.7 mmol/L (3.5-5.1); TOTAL PROTEIN, SERUM 5.6 g/dL (6.0-8.3)
[2020-02-10 07:49] LABS: BAND NEUTROPHILS % (MANUAL) 7 % (0-2); EOSINOPHILS % (MANUAL) 1 % (1-6); LYMPHOCYTES % (MANUAL) 5 % (22-44); MAN.DIFF COMMENT-IMPRESSION MANUAL DIFFERENTIAL; MONOCYTES % (MANUAL) 7 % (2-9); PLATELET MORPHOLOGY COMMENT ADEQUATE; SEGMENTED NEUTROPHILS % 80 % (40-70)
[2020-02-10] MEDS: ACETYLCYSTEINE 600 MG CAPSULE PO SCH ×2 (09:21→20:28)
[2020-02-10] MEDS: METHYLPREDNISOLONE SOD SUCC 40MG/ML 1ML IVP SCH ×2 (09:21→20:27)
[2020-02-10] MEDS: PANTOPRAZOLE SODIUM 40 MG TABLET.DR PO SCH (09:21)
[2020-02-10] MEDS: ENOXAPARIN SODIUM 80 MG/0.8 ML SQ SCH (09:23)
[2020-02-11] VITALS (18 sets, daily range): BP systolic 93–135; BP diastolic 61–81
[2020-02-11] MEDS: ALBUTEROL INHALER 90MCG/INH IH SCH ×6 (02:00→19:46)
[2020-02-11 04:38] LABS: BASOPHILS % (AUTO) 0.8 % (0.0-5.0); EOSINOPHILS % (AUTO) 0.7 % (0.0-8.0); HEMATOCRIT 36.3 % (36-48); LYMPHOCYTES % (AUTO) 7.4 % (21.0-51.0); MEAN CORPUSCULAR HEMOGLOBIN 29.8 pg (27.0-33.0); MEAN CORPUSCULAR HGB CONC 33.6 g/dL (32.0-36.0); MEAN CORPUSCULAR VOLUME 88.8 fL (79-99); MONOCYTES % (AUTO) 3.9 % (3.0-13.0); NEUTROPHILS % (AUTO) 80.9 % (40.0-77.0); PLATELET COUNT (AUTO) 240 K/uL (130-400); RED BLOOD CELL COUNT(AUTO) 4.09 MIL/uL (4.00-5.50); RED CELL DISTRIBUTION WIDTH 14.8 % (11.0-15.5); WHITE BLOOD COUNT (AUTO) 7.1 K/uL (4.8-10.8)
[2020-02-11 05:04] LABS: CREATININE 0.3 mg/dL (0.5-1.5); CRP QUANTITATIVE 46.6 mg/L (0.00-9.0); MAGNESIUM 2.1 mg/dL (1.80-2.40); POTASSIUM 4.2 mmol/L (3.5-5.1)
[2020-02-11] MEDS: METOPROLOL TARTRATE 1 MG/ML 5ML VIAL IV SCH ×4 (05:46→23:17)
[2020-02-11] MEDS: PANTOPRAZOLE SODIUM 40 MG TABLET.DR PO SCH (08:59)
[2020-02-11] MEDS: ENOXAPARIN SODIUM 80 MG/0.8 ML SQ SCH (09:00)
[2020-02-11] MEDS: METHYLPREDNISOLONE SOD SUCC 40MG/ML 1ML IVP SCH ×2 (09:00→19:46)
[2020-02-11] MEDS: ACETYLCYSTEINE 600 MG CAPSULE PO SCH ×2 (09:00→19:46)
[2020-02-11] MEDS: MORPHINE SULFATE 2 MG/ML 1ML SYG IV PRN ×2 (10:24→23:59)
--- NOTE | 2020-02-11 19:01 | NUR ---
report endorsed to NAINA Morales
[2020-02-12] VITALS (18 sets, daily range): BP systolic 98–135; BP diastolic 56–77
[2020-02-12] MEDS: ALBUTEROL INHALER 90MCG/INH IH SCH ×6 (02:00→20:16)
[2020-02-12 04:07] LABS: BASOPHILS % (AUTO) 0.8 % (0.0-5.0); EOSINOPHILS % (AUTO) 0.1 % (0.0-8.0); HEMATOCRIT 34.5 % (36-48); LYMPHOCYTES % (AUTO) 7.4 % (21.0-51.0); MEAN CORPUSCULAR HGB CONC 33.6 g/dL (32.0-36.0); MEAN CORPUSCULAR VOLUME 89.1 fL (79-99); MONOCYTES % (AUTO) 4.7 % (3.0-13.0); NEUTROPHILS % (AUTO) 79.6 % (40.0-77.0); NUCLEATED RED BLOOD CELLS 0.3 % (0.0-0.19); PLATELET COUNT (AUTO) 267 K/uL (130-400); RED BLOOD CELL COUNT(AUTO) 3.87 MIL/uL (4.00-5.50); RED CELL DISTRIBUTION WIDTH 14.9 % (11.0-15.5); WHITE BLOOD COUNT (AUTO) 7.3 K/uL (4.8-10.8)
[2020-02-12 04:18] LABS: ABG BASE EXCESS 3.6 mmol/L (-2.0-3.0); ABG OXYGEN SATURATION 95.2 % (95.0-99.0); ABG PCO2 47 mmHg (32-45)
[2020-02-12 04:27] LABS: CREATININE 0.3 mg/dL (0.5-1.5); CRP QUANTITATIVE 29.5 mg/L (0.00-9.0); POTASSIUM 4.1 mmol/L (3.5-5.1)
[2020-02-12] MEDS: METOPROLOL TARTRATE 1 MG/ML 5ML VIAL IV SCH ×4 (04:30→23:34)
[2020-02-12 04:32] LABS: B-TYPE NATRIURETIC PEPTIDE 16 pg/mL (0-100)
[2020-02-12] MEDS: ENOXAPARIN SODIUM 80 MG/0.8 ML SQ SCH (08:45)
[2020-02-12] MEDS: METHYLPREDNISOLONE SOD SUCC 40MG/ML 1ML IVP SCH ×2 (08:45→20:16)
[2020-02-12] MEDS: PANTOPRAZOLE SODIUM 40 MG TABLET.DR PO SCH (08:46)
[2020-02-12] MEDS: ACETYLCYSTEINE 600 MG CAPSULE PO SCH ×2 (08:46→20:16)
[2020-02-12] MEDS: MORPHINE SULFATE 2 MG/ML 1ML SYG IV PRN ×2 (11:31→20:59)
[2020-02-12] MEDS: ACETAMINOPHEN 325 MG TAB PO PRN (16:51)
[2020-02-13] VITALS (14 sets, daily range): BP systolic 110–141; BP diastolic 57–85
[2020-02-13] MEDS: ALBUTEROL INHALER 90MCG/INH IH SCH ×6 (03:13→22:00)
[2020-02-13 05:00] LABS: BASOPHILS % (AUTO) 0.9 % (0.0-5.0); EOSINOPHILS % (AUTO) 0.3 % (0.0-8.0); HEMATOCRIT 35.3 % (36-48); LYMPHOCYTES % (AUTO) 7.7 % (21.0-51.0); MEAN CORPUSCULAR HEMOGLOBIN 30.1 pg (27.0-33.0); MEAN CORPUSCULAR HGB CONC 33.7 g/dL (32.0-36.0); MEAN CORPUSCULAR VOLUME 89.1 fL (79-99); MONOCYTES % (AUTO) 4.5 % (3.0-13.0); NUCLEATED RED BLOOD CELLS 0.3 % (0.0-0.19); PLATELET COUNT (AUTO) 275 K/uL (130-400); RED BLOOD CELL COUNT(AUTO) 3.96 MIL/uL (4.00-5.50); RED CELL DISTRIBUTION WIDTH 14.9 % (11.0-15.5); WHITE BLOOD COUNT (AUTO) 7.8 K/uL (4.8-10.8)
[2020-02-13] MEDS: METOPROLOL TARTRATE 1 MG/ML 5ML VIAL IV SCH ×4 (05:20→23:00)
[2020-02-13] MEDS: MORPHINE SULFATE 2 MG/ML 1ML SYG IV PRN ×3 (05:20→20:41)
[2020-02-13 05:26] LABS: B-TYPE NATRIURETIC PEPTIDE 14 pg/mL (0-100)
[2020-02-13 05:37] LABS: CREATININE 0.3 mg/dL (0.5-1.5); CRP QUANTITATIVE 33.1 mg/L (0.00-9.0); POTASSIUM 3.9 mmol/L (3.5-5.1)
[2020-02-13] MEDS: ACETYLCYSTEINE 600 MG CAPSULE PO SCH ×2 (10:18→20:42)
[2020-02-13] MEDS: METHYLPREDNISOLONE SOD SUCC 40MG/ML 1ML IVP SCH ×2 (10:18→20:42)
[2020-02-13] MEDS: CLONAZEPAM 0.5 MG TABLET PO PRN (10:18)
[2020-02-13] MEDS: PANTOPRAZOLE SODIUM 40 MG TABLET.DR PO SCH (10:18)
[2020-02-13] MEDS: ENOXAPARIN SODIUM 80 MG/0.8 ML SQ SCH (10:19)
[2020-02-14] VITALS (13 sets, daily range): BP systolic 120–157; BP diastolic 55–84
[2020-02-14] MEDS: ALBUTEROL INHALER 90MCG/INH IH SCH ×6 (02:00→20:40)
[2020-02-14] MEDS: MORPHINE SULFATE 2 MG/ML 1ML SYG IV PRN ×3 (05:19→21:04)
[2020-02-14] MEDS: METOPROLOL TARTRATE 1 MG/ML 5ML VIAL IV SCH ×4 (05:20→23:03)
[2020-02-14 07:29] LABS: BASOPHILS % (AUTO) 0.2 % (0.0-5.0); EOSINOPHILS % (AUTO) 0.1 % (0.0-8.0); LYMPHOCYTES % (AUTO) 7.1 % (21.0-51.0); MEAN CORPUSCULAR HEMOGLOBIN 29.9 pg (27.0-33.0); MEAN CORPUSCULAR HGB CONC 33.2 g/dL (32.0-36.0); MONOCYTES % (AUTO) 4.4 % (3.0-13.0); NEUTROPHILS % (AUTO) 77.2 % (40.0-77.0); NUCLEATED RED BLOOD CELLS 0.3 % (0.0-0.19); PLATELET COUNT (AUTO) 319 K/uL (130-400); RED BLOOD CELL COUNT(AUTO) 4.22 MIL/uL (4.00-5.50); RED CELL DISTRIBUTION WIDTH 15.2 % (11.0-15.5); WHITE BLOOD COUNT (AUTO) 11.2 K/uL (4.8-10.8)
[2020-02-14 07:43] LABS: ALBUMIN 2.3 g/dL (3.5-5.0); BILIRUBIN,TOTAL 0.4 mg/dL (0.2-1.0); CREATININE 0.2 mg/dL (0.5-1.5); CRP QUANTITATIVE 41.1 mg/L (0.00-9.0); MAGNESIUM 2.1 mg/dL (1.80-2.40); POTASSIUM 3.8 mmol/L (3.5-5.1); TOTAL PROTEIN, SERUM 5.8 g/dL (6.0-8.3)
[2020-02-14] MEDS: METHYLPREDNISOLONE SOD SUCC 40MG/ML 1ML IVP SCH ×2 (10:36→20:40)
[2020-02-14] MEDS: ACETYLCYSTEINE 600 MG CAPSULE PO SCH ×2 (10:36→20:40)
[2020-02-14] MEDS: ENOXAPARIN SODIUM 80 MG/0.8 ML SQ SCH (10:37)
[2020-02-14] MEDS: PANTOPRAZOLE SODIUM 40 MG TABLET.DR PO SCH (10:37)
[2020-02-14] MEDS: CLONAZEPAM 0.5 MG TABLET PO PRN (10:37)
--- NOTE | 2020-02-14 22:55 | NUR ---
nursing pt continues to have increase anxiety and ST 130's with increase RR pt given morphine of r sob as ordered pt treated with metoprolol as ordered pt reamins in distress spoke with pt and family awre and remains firm that pt does not be intubated,. pt continues to ask for more air pt sats's 94% on high flow at 100% and NRB with little movement pt o2 sats drop to 70's and 80's pt remains prone and encouraged to relax and stop talking to help improve oxygenation .
[2020-02-15] VITALS (40 sets, daily range): BP systolic 76–148; BP diastolic 43–83
[2020-02-15] MEDS: ALBUTEROL INHALER 90MCG/INH IH SCH ×3 (02:33→10:00)
[2020-02-15] MEDS: MORPHINE SULFATE 2 MG/ML 1ML SYG IV PRN ×2 (02:33→09:43)
[2020-02-15] MEDS: ALBUTEROL INHALER 90MCG/INH IH PRN (02:33)
[2020-02-15 04:45] LABS: BASOPHILS % (AUTO) 0.1 % (0.0-5.0); EOSINOPHILS % (AUTO) 0.3 % (0.0-8.0); HEMATOCRIT 36.8 % (36-48); LYMPHOCYTES % (AUTO) 7.4 % (21.0-51.0); MEAN CORPUSCULAR HEMOGLOBIN 29.9 pg (27.0-33.0); MEAN CORPUSCULAR HGB CONC 33.4 g/dL (32.0-36.0); MEAN CORPUSCULAR VOLUME 89.5 fL (79-99); MONOCYTES % (AUTO) 3.8 % (3.0-13.0); NUCLEATED RED BLOOD CELLS 0.2 % (0.0-0.19); PLATELET COUNT (AUTO) 370 K/uL (130-400); RED BLOOD CELL COUNT(AUTO) 4.11 MIL/uL (4.00-5.50); RED CELL DISTRIBUTION WIDTH 15.3 % (11.0-15.5); WHITE BLOOD COUNT (AUTO) 13.4 K/uL (4.8-10.8)
[2020-02-15] MEDS: METOPROLOL TARTRATE 1 MG/ML 5ML VIAL IV SCH ×4 (05:07→23:00)
[2020-02-15 05:12] LABS: CREATININE 0.3 mg/dL (0.5-1.5); CRP QUANTITATIVE 66.6 mg/L (0.00-9.0); POTASSIUM 4.2 mmol/L (3.5-5.1)
[2020-02-15] MEDS: ACETYLCYSTEINE 600 MG CAPSULE PO SCH ×2 (09:00→21:00)
[2020-02-15] MEDS: PANTOPRAZOLE SODIUM 40 MG TABLET.DR PO SCH (09:00)
[2020-02-15] MEDS: METHYLPREDNISOLONE SOD SUCC 40MG/ML 1ML IVP SCH (09:42)
[2020-02-15] MEDS: ENOXAPARIN SODIUM 80 MG/0.8 ML SQ SCH (09:42)
[2020-02-15] MEDS ORDERED: ETOMIDATE 2 MG/ML 10 ML VIAL IVP SCH (11:50)
[2020-02-15] MEDS ORDERED: SUCCINYLCHOLINE 200MG/10ML SYR IVP SCH (11:50)
[2020-02-15] MEDS ORDERED: FENTANYL CITRATE PF 50 MCG/1 ML 2ML VIAL IVP SCH (11:50)
[2020-02-15] MEDS ORDERED: FENTANYL CITRATE PF 50 MCG/1 ML 2ML VIAL ONE (12:31)
[2020-02-15] MEDS ORDERED: PROPOFOL 1000 MG/100 ML 100 ML IV ONE (12:42)
[2020-02-15] MEDS ORDERED: FENTANYL 2500MCG+NS 250ML 250 ML IV ONE ×2 (12:43→22:54)
[2020-02-15] MEDS ORDERED: PROPOFOL 1000 MG/100 ML IV PRN (12:45)
--- NOTE | 2020-02-15 12:45 | NUR ---
pt [address] sat 78% [address] Maldonado at bedside. pt revoking DNI status and wants to be intubated. Pt intubated with 7.5 ett 22 @ the lip OG tube placed. 02 sat 98% cxr ordered
[2020-02-15 19:15] LABS: ABG HCO3 30.8 mmol/L (21.0-28.0); ABG OXYGEN SATURATION 96.1 % (95.0-99.0); ABG PCO2 67 mmHg (32-45)
--- NOTE | 2020-02-15 20:00 | NUR ---
nurse called dr. boothe r/t blood gas reported to respiratory to change peep to 5 and TV increase to 380 the n repeat blood gas in 1-2 hours
[2020-02-15 22:14] LABS: ABG BASE EXCESS 6.2 mmol/L (-2.0-3.0); ABG HCO3 29.7 mmol/L (21.0-28.0); ABG OXYGEN SATURATION 95.9 % (95.0-99.0); ABG PCO2 39 mmHg (32-45)
[2020-02-15] MEDS ORDERED: PHARMACY COMMUNICATION MISC SCH (23:30)
[2020-02-16] VITALS (16 sets, daily range): BP systolic 82–139; BP diastolic 46–81
[2020-02-16] MEDS: METHYLPREDNISOLONE SOD SUCC 40MG/ML 1ML IVP SCH ×5 (00:01→17:22)
[2020-02-16] MEDS ORDERED: SODIUM CHLORIDE 0.9% 500ML 500 ML IV ONE (01:08)
--- NOTE | 2020-02-16 01:34 | NUR ---
called BILLING CLERK King to notify that BP low and map below 65 new order to give 500 bolus and start on levophed if pt sbp not 90 or greater.
[2020-02-16] MEDS ORDERED: NOREPINEPHRINE 4MG/NS 250ML 250 ML IV ONE (01:38)
[2020-02-16] MEDS: METOPROLOL TARTRATE 1 MG/ML 5ML VIAL IV SCH ×4 (02:21→20:41)
[2020-02-16 04:19] LABS: BASOPHILS % (AUTO) 0.2 % (0.0-5.0); EOSINOPHILS % (AUTO) 0.1 % (0.0-8.0); HEMATOCRIT 36.3 % (36-48); LYMPHOCYTES % (AUTO) 5.5 % (21.0-51.0); MEAN CORPUSCULAR HEMOGLOBIN 29.8 pg (27.0-33.0); MEAN CORPUSCULAR HGB CONC 32.8 g/dL (32.0-36.0); MEAN CORPUSCULAR VOLUME 90.8 fL (79-99); MONOCYTES % (AUTO) 3.2 % (3.0-13.0); NEUTROPHILS % (AUTO) 78.9 % (40.0-77.0); NUCLEATED RED BLOOD CELLS 0.4 % (0.0-0.19); PLATELET COUNT (AUTO) 361 K/uL (130-400); RED CELL DISTRIBUTION WIDTH 15.5 % (11.0-15.5); WHITE BLOOD COUNT (AUTO) 16.1 K/uL (4.8-10.8)
[2020-02-16 04:35] LABS: ALBUMIN 2.2 g/dL (3.5-5.0); BILIRUBIN,TOTAL 0.7 mg/dL (0.2-1.0); CREATININE 0.3 mg/dL (0.5-1.5); CRP QUANTITATIVE 56.9 mg/L (0.00-9.0); POTASSIUM 3.9 mmol/L (3.5-5.1); TOTAL PROTEIN, SERUM 5.6 g/dL (6.0-8.3)
[2020-02-16] MEDS: MIDAZOLAM 50MG-0.9% NS 50ML 50 ML BAG IV SCH ×3 (05:33→20:40)
[2020-02-16 07:23] LABS: ABG BASE EXCESS -0.9 mmol/L (-2.0-3.0); ABG HCO3 24.4 mmol/L (21.0-28.0); ABG OXYGEN SATURATION 96.5 % (95.0-99.0); ABG PCO2 43 mmHg (32-45)
[2020-02-16] MEDS: PANTOPRAZOLE SODIUM 40 MG TABLET.DR PO SCH ×2 (07:31→09:15)
[2020-02-16] MEDS: ACETYLCYSTEINE 600 MG CAPSULE PO SCH ×3 (07:31→20:41)
[2020-02-16] MEDS: ENOXAPARIN SODIUM 80 MG/0.8 ML SQ SCH (08:52)
[2020-02-16] MEDS ORDERED: FENTANYL 2500MCG+NS 250ML 250 ML IV ONE ×2 (09:10→23:56)
[2020-02-16] MEDS: NOREPINEPHRINE 4MG/NS 250ML 250 ML IV SCH (09:16)
[2020-02-16] MEDS: FENTANYL CITRATE PF 0.05 MG/ML 1,000 MCG in SODIUM CHLORIDE 0.9% 100 ML IVPB SCH (09:19)
[2020-02-16] MEDS ORDERED: LIDOCAINE HCL-MPF 1% 2ML VIAL IV PRN (14:15)
--- NOTE | 2020-02-16 14:39 | NUR ---
RD FOLLOW UP Intubation notification received. Recommend Continuous tube feeding Vital AF 1.2 Initiated at 15mls/hr, Goal Rate 45mls/hr. Rec Flushes at 100ml Q6hrs. Recommendations faxed to Elvia RN notified. NUTRITION NOTE: Pt with revoked DNI order. Pt with previous extended Full Liquid diet order due to Pt refusal of diet advancement and alternative means nutrition. WBC 16.1, BG 174, Altered LFT's. Alb 2.2. Last recorded BM, 02/01/20. RD to continue to monitor. Please notify as additional nutrition concerns arise. Thank you,
[2020-02-17] VITALS (25 sets, daily range): BP systolic 91–123; BP diastolic 53–77
[2020-02-17] MEDS: METHYLPREDNISOLONE SOD SUCC 40MG/ML 1ML IVP SCH ×4 (04:36→22:08)
[2020-02-17] MEDS: METOPROLOL TARTRATE 1 MG/ML 5ML VIAL IV SCH ×4 (04:36→23:00)
[2020-02-17 05:37] LABS: BASOPHILS % (AUTO) 0.9 % (0.0-5.0); EOSINOPHILS % (AUTO) 0.2 % (0.0-8.0); HEMATOCRIT 34.2 % (36-48); LYMPHOCYTES % (AUTO) 8.6 % (21.0-51.0); MEAN CORPUSCULAR HEMOGLOBIN 29.6 pg (27.0-33.0); MEAN CORPUSCULAR HGB CONC 32.5 g/dL (32.0-36.0); MEAN CORPUSCULAR VOLUME 91.2 fL (79-99); MONOCYTES % (AUTO) 4.9 % (3.0-13.0); NEUTROPHILS % (AUTO) 75.3 % (40.0-77.0); NUCLEATED RED BLOOD CELLS 0.2 % (0.0-0.19); PLATELET COUNT (AUTO) 354 K/uL (130-400); RED BLOOD CELL COUNT(AUTO) 3.75 MIL/uL (4.00-5.50); RED CELL DISTRIBUTION WIDTH 15.4 % (11.0-15.5); WHITE BLOOD COUNT (AUTO) 17.2 K/uL (4.8-10.8)
[2020-02-17 06:05] LABS: ALBUMIN 2.2 g/dL (3.5-5.0); BILIRUBIN,TOTAL 0.4 mg/dL (0.2-1.0); CREATININE 0.3 mg/dL (0.5-1.5); CRP QUANTITATIVE 43.6 mg/L (0.00-9.0); TOTAL PROTEIN, SERUM 5.6 g/dL (6.0-8.3)
[2020-02-17 07:18] LABS: ABG BASE EXCESS 3.4 mmol/L (-2.0-3.0); ABG HCO3 28.9 mmol/L (21.0-28.0); ABG OXYGEN SATURATION 88.8 % (95.0-99.0); ABG PCO2 47 mmHg (32-45)
[2020-02-17] MEDS: ACETYLCYSTEINE 600 MG CAPSULE PO SCH ×2 (07:58→22:08)
[2020-02-17] MEDS: ENOXAPARIN SODIUM 80 MG/0.8 ML SQ SCH (07:59)
[2020-02-17] MEDS ORDERED: METHYLPREDNISOLONE SOD SUCC 125MG/2ML VIAL ONE (11:55)
[2020-02-17] MEDS: PANTOPRAZOLE 40 MG/VIAL IVP SCH (11:58)
[2020-02-17] MEDS: MIDAZOLAM 50MG-0.9% NS 50ML 50 ML BAG IV SCH (15:10)
--- NOTE | 2020-02-17 15:30 | NUR ---
Prone Pt turned to prone position per MD order
[2020-02-17] MEDS: FENTANYL CITRATE PF 0.05 MG/ML 1,000 MCG in SODIUM CHLORIDE 0.9% 100 ML IVPB SCH (16:15)
[2020-02-18] VITALS (59 sets, daily range): BP systolic 79–135; BP diastolic 48–84
[2020-02-18] MEDS: METOPROLOL TARTRATE 1 MG/ML 5ML VIAL IV SCH ×4 (05:00→21:11)
[2020-02-18 05:39] LABS: BASOPHILS % (AUTO) 0.8 % (0.0-5.0); EOSINOPHILS % (AUTO) 0.2 % (0.0-8.0); LYMPHOCYTES % (AUTO) 5.4 % (21.0-51.0); MEAN CORPUSCULAR HEMOGLOBIN 29.5 pg (27.0-33.0); MEAN CORPUSCULAR HGB CONC 32.2 g/dL (32.0-36.0); MEAN CORPUSCULAR VOLUME 91.7 fL (79-99); NEUTROPHILS % (AUTO) 78.1 % (40.0-77.0); NUCLEATED RED BLOOD CELLS 0.2 % (0.0-0.19); PLATELET COUNT (AUTO) 336 K/uL (130-400); RED BLOOD CELL COUNT(AUTO) 3.49 MIL/uL (4.00-5.50); RED CELL DISTRIBUTION WIDTH 15.6 % (11.0-15.5); WHITE BLOOD COUNT (AUTO) 14.5 K/uL (4.8-10.8)
[2020-02-18 06:11] LABS: ALBUMIN 2.1 g/dL (3.5-5.0); BILIRUBIN,TOTAL 0.4 mg/dL (0.2-1.0); CREATININE 0.2 mg/dL (0.5-1.5); CRP QUANTITATIVE 20.1 mg/L (0.00-9.0); POTASSIUM 4.2 mmol/L (3.5-5.1); TOTAL PROTEIN, SERUM 5.5 g/dL (6.0-8.3)
[2020-02-18] MEDS: MIDAZOLAM 50MG-0.9% NS 50ML 50 ML BAG IV SCH (06:43)
[2020-02-18 07:49] LABS: ABG BASE EXCESS 2.6 mmol/L (-2.0-3.0); ABG HCO3 26.9 mmol/L (21.0-28.0); ABG OXYGEN SATURATION 96.6 % (95.0-99.0); ABG PCO2 41 mmHg (32-45)
--- NOTE | 2020-02-18 08:04 | NUR ---
Patient remained on prone position,endorsed care to incoming NOD using SBAR,all questions answered.
[2020-02-18] MEDS ORDERED: FENTANYL 2500MCG+NS 250ML 250 ML IV ONE (08:10)
[2020-02-18] MEDS: ACETYLCYSTEINE 600 MG CAPSULE PO SCH ×2 (09:58→21:00)
[2020-02-18] MEDS: PANTOPRAZOLE 40 MG/VIAL IVP SCH (09:58)
[2020-02-18] MEDS: ENOXAPARIN SODIUM 80 MG/0.8 ML SQ SCH (09:58)
[2020-02-18] MEDS: METHYLPREDNISOLONE SOD SUCC 40MG/ML 1ML IVP SCH ×2 (09:58→21:11)
[2020-02-18] MEDS: DEXMEDETOMIDINE HCL 200 MCG in SODIUM CHLORIDE 0.9% 50 ML IV SCH ×3 (17:06→23:29)
[2020-02-19] VITALS (82 sets, daily range): BP systolic 82–167; BP diastolic 53–114
[2020-02-19] MEDS ORDERED: FENTANYL CITRATE PF 0.05 MG/ML 1,000 MCG in SODIUM CHLORIDE 0.9% 100 ML IVPB SCH (03:00)
[2020-02-19] MEDS ORDERED: FENTANYL 2500MCG+NS 250ML 250 ML IV ONE ×2 (03:11→17:29)
[2020-02-19] MEDS: DEXMEDETOMIDINE HCL 200 MCG in SODIUM CHLORIDE 0.9% 50 ML IV SCH ×2 (03:23→18:05)
[2020-02-19] MEDS: METOPROLOL TARTRATE 1 MG/ML 5ML VIAL IV SCH ×4 (04:41→20:14)
[2020-02-19 05:29] LABS: BASOPHILS % (AUTO) 0.8 % (0.0-5.0); EOSINOPHILS % (AUTO) 0.3 % (0.0-8.0); LYMPHOCYTES % (AUTO) 4.2 % (21.0-51.0); MEAN CORPUSCULAR HEMOGLOBIN 29.5 pg (27.0-33.0); MEAN CORPUSCULAR HGB CONC 32.5 g/dL (32.0-36.0); MEAN CORPUSCULAR VOLUME 90.9 fL (79-99); MONOCYTES % (AUTO) 3.6 % (3.0-13.0); NEUTROPHILS % (AUTO) 78.9 % (40.0-77.0); NUCLEATED RED BLOOD CELLS 0.2 % (0.0-0.19); PLATELET COUNT (AUTO) 271 K/uL (130-400); RED BLOOD CELL COUNT(AUTO) 3.08 MIL/uL (4.00-5.50); RED CELL DISTRIBUTION WIDTH 15.9 % (11.0-15.5); WHITE BLOOD COUNT (AUTO) 9.9 K/uL (4.8-10.8)
[2020-02-19 05:56] LABS: ALBUMIN 1.8 g/dL (3.5-5.0); BILIRUBIN,TOTAL 0.4 mg/dL (0.2-1.0); CRP QUANTITATIVE 28.9 mg/L (0.00-9.0); POTASSIUM 3.9 mmol/L (3.5-5.1); TOTAL PROTEIN, SERUM 4.7 g/dL (6.0-8.3)
[2020-02-19 06:28] LABS: CREATININE 0.2 mg/dL (0.5-1.5)
[2020-02-19] MEDS: PANTOPRAZOLE 40 MG/VIAL IVP SCH (08:51)
[2020-02-19] MEDS: ENOXAPARIN SODIUM 80 MG/0.8 ML SQ SCH (08:51)
[2020-02-19] MEDS: METHYLPREDNISOLONE SOD SUCC 40MG/ML 1ML IVP SCH ×2 (08:51→20:14)
[2020-02-19 09:03] LABS: ABG BASE EXCESS 3.1 mmol/L (-2.0-3.0); ABG HCO3 25.1 mmol/L (21.0-28.0); ABG OXYGEN SATURATION 97.7 % (95.0-99.0); ABG PCO2 31 mmHg (32-45)
[2020-02-19] MEDS: ACETYLCYSTEINE 600 MG CAPSULE PO SCH ×2 (09:12→20:14)
--- NOTE | 2020-02-19 11:06 | NUR ---
RD UPDATE MD request for Promote Tube Feeding equivalent. RD recommend Vital High Protein initiated at 15mls for 10 hours. Goal rate of 35mls/hr. Recommend Flush of 150 Q6hrs. Recommendations faxed to Elvia RN notified. RD to continue to monitor.
[2020-02-19] MEDS: MIDAZOLAM 50MG-0.9% NS 50ML 50 ML BAG IV SCH (11:41)
[2020-02-19] MEDS ORDERED: DEXMEDETOMIDINE HCL 400 MCG in SODIUM CHLORIDE 0.9% 100 ML IV SCH (20:15)
[2020-02-19] MEDS: PROPOFOL 1000 MG/100 ML 100 ML IV PRN (22:33)
[2020-02-20] VITALS (74 sets, daily range): BP systolic 64–168; BP diastolic 31–106
[2020-02-20 04:53] LABS: HEMATOCRIT 32.2 % (36-48); MEAN CORPUSCULAR HEMOGLOBIN 29.8 pg (27.0-33.0); MEAN CORPUSCULAR HGB CONC 32.6 g/dL (32.0-36.0); MEAN CORPUSCULAR VOLUME 91.5 fL (79-99); NUCLEATED RED BLOOD CELLS 0.4 % (0.0-0.19); PLATELET COUNT (AUTO) 292 K/uL (130-400); RED BLOOD CELL COUNT(AUTO) 3.52 MIL/uL (4.00-5.50); RED CELL DISTRIBUTION WIDTH 15.8 % (11.0-15.5)
[2020-02-20 05:12] LABS: BAND NEUTROPHILS % (MANUAL) 16 % (0-2); LYMPHOCYTES % (MANUAL) 7 % (22-44); METAMYELOCYTES % 2 % (0-0); MONOCYTES % (MANUAL) 1 % (2-9); MYELOCYTES % 1 % (0-0); SEGMENTED NEUTROPHILS % 73 % (40-70)
[2020-02-20 05:13] LABS: MAN.DIFF COMMENT-IMPRESSION MANUAL DIFFERENTIAL
[2020-02-20 05:25] LABS: BILIRUBIN,TOTAL 0.5 mg/dL (0.2-1.0); CRP QUANTITATIVE 143.2 mg/L (0.00-9.0); POTASSIUM 3.8 mmol/L (3.5-5.1); TOTAL PROTEIN, SERUM 5.3 g/dL (6.0-8.3)
[2020-02-20 05:40] LABS: CREATININE 0.2 mg/dL (0.5-1.5)
[2020-02-20] MEDS: METOPROLOL TARTRATE 1 MG/ML 5ML VIAL IV SCH ×4 (06:55→23:00)
[2020-02-20] MEDS ORDERED: FENTANYL 2500MCG+NS 250ML 250 ML IV ONE ×3 (06:57→21:08)
[2020-02-20 07:14] LABS: ABG HCO3 25.2 mmol/L (21.0-28.0); ABG OXYGEN SATURATION 92.7 % (95.0-99.0); ABG PCO2 35 mmHg (32-45)
[2020-02-20] MEDS: DEXMEDETOMIDINE HCL 400 MCG in SODIUM CHLORIDE 0.9% 100 ML IV SCH ×3 (07:34→18:24)
[2020-02-20] MEDS: ACETYLCYSTEINE 600 MG CAPSULE PO SCH ×2 (08:37→21:18)
[2020-02-20] MEDS: ENOXAPARIN SODIUM 40 MG/0.4 ML SYRINGE SQ SCH (08:37)
[2020-02-20] MEDS: PANTOPRAZOLE 40 MG/VIAL IVP SCH (08:38)
[2020-02-20] MEDS: METHYLPREDNISOLONE SOD SUCC 40MG/ML 1ML IVP SCH (08:38)
[2020-02-20] MEDS ORDERED: DOCUSATE NA 100MG/10ML UDCUP ONE (13:31)
[2020-02-20] MEDS: METHYLPREDNISOLONE SOD SUCC 125MG/2ML VIAL IVP SCH ×3 (13:35→21:19)
[2020-02-20] MEDS: NOREPINEPHRINE 4MG/NS 250ML 250 ML IV SCH (16:49)
[2020-02-21] VITALS (76 sets, daily range): BP systolic 69–175; BP diastolic 38–90
[2020-02-21 04:40] LABS: HEMATOCRIT 31.8 % (36-48); MEAN CORPUSCULAR HEMOGLOBIN 29.5 pg (27.0-33.0); MEAN CORPUSCULAR HGB CONC 32.7 g/dL (32.0-36.0); MEAN CORPUSCULAR VOLUME 90.1 fL (79-99); NUCLEATED RED BLOOD CELLS 0.3 % (0.0-0.19); PLATELET COUNT (AUTO) 253 K/uL (130-400); RED BLOOD CELL COUNT(AUTO) 3.53 MIL/uL (4.00-5.50); RED CELL DISTRIBUTION WIDTH 15.8 % (11.0-15.5); WHITE BLOOD COUNT (AUTO) 13.9 K/uL (4.8-10.8)
[2020-02-21] MEDS: METOPROLOL TARTRATE 1 MG/ML 5ML VIAL IV SCH ×4 (05:00→20:59)
[2020-02-21 05:04] LABS: BAND NEUTROPHILS % (MANUAL) 4 % (0-2); LYMPHOCYTES % (MANUAL) 9 % (22-44); MAN.DIFF COMMENT-IMPRESSION MANUAL DIFFERENTIAL; MONOCYTES % (MANUAL) 4 % (2-9); PLATELET MORPHOLOGY COMMENT ADEQUATE; SEGMENTED NEUTROPHILS % 83 % (40-70)
[2020-02-21 05:05] LABS: ALBUMIN 1.7 g/dL (3.5-5.0); BILIRUBIN,TOTAL 0.5 mg/dL (0.2-1.0); POTASSIUM 3.1 mmol/L (3.5-5.1); TOTAL PROTEIN, SERUM 5.2 g/dL (6.0-8.3)
[2020-02-21 05:16] LABS: CREATININE 0.1 mg/dL (0.5-1.5)
[2020-02-21] MEDS: METHYLPREDNISOLONE SOD SUCC 125MG/2ML VIAL IVP SCH ×4 (05:24→20:58)
[2020-02-21 05:33] LABS: CRP QUANTITATIVE 261.6 mg/L (0.00-9.0)
[2020-02-21] MEDS: DEXMEDETOMIDINE HCL 400 MCG in SODIUM CHLORIDE 0.9% 100 ML IV SCH ×3 (06:47→14:51)
[2020-02-21] MEDS: PROPOFOL 1000 MG/100 ML 100 ML IV PRN ×3 (06:48→17:51)
[2020-02-21 07:28] LABS: ABG BASE EXCESS 4.4 mmol/L (-2.0-3.0); ABG HCO3 31.6 mmol/L (21.0-28.0); ABG OXYGEN SATURATION 97.7 % (95.0-99.0); ABG PCO2 58 mmHg (32-45)
[2020-02-21] MEDS: POTASSIUM CHLORIDE 20MEQ/100ML 100 ML IV PRN (07:52)
[2020-02-21] MEDS: ACETYLCYSTEINE 600 MG CAPSULE PO SCH ×2 (07:53→20:58)
[2020-02-21] MEDS: ENOXAPARIN SODIUM 40 MG/0.4 ML SYRINGE SQ SCH (07:53)
[2020-02-21] MEDS: PANTOPRAZOLE 40 MG/VIAL IVP SCH (07:53)
[2020-02-21] MEDS ORDERED: ZOSYN 3.375GM+NS 50ML 50 ML IV SCH (13:00)
[2020-02-21] MEDS ORDERED: LACTATED RINGERS 1000ML IV SCH (13:00)
[2020-02-21] MEDS ORDERED: LACTULOSE 20 GM/30 ML UDCUP PO PRN (13:45)
[2020-02-21] MEDS: FENTANYL 2500MCG+NS 250ML 250 ML IV SCH (14:36)
[2020-02-21] MEDS: NOREPINEPHRINE 4MG/NS 250ML 250 ML IV SCH (17:54)
[2020-02-21] MEDS: DOCUSATE NA 100MG/10ML UDCUP NG SCH (20:58)
[2020-02-21] MEDS: LACTULOSE 20 GM/30 ML UDCUP PO PRN (20:59)
[2020-02-22] VITALS (64 sets, daily range): BP systolic 61–169; BP diastolic 32–99
[2020-02-22 04:04] LABS: HEMATOCRIT 33.7 % (36-48); MEAN CORPUSCULAR HEMOGLOBIN 29.5 pg (27.0-33.0); MEAN CORPUSCULAR HGB CONC 32.6 g/dL (32.0-36.0); MEAN CORPUSCULAR VOLUME 90.3 fL (79-99); NUCLEATED RED BLOOD CELLS 0.5 % (0.0-0.19); PLATELET COUNT (AUTO) 249 K/uL (130-400); RED BLOOD CELL COUNT(AUTO) 3.73 MIL/uL (4.00-5.50); RED CELL DISTRIBUTION WIDTH 16.1 % (11.0-15.5)
[2020-02-22 04:25] LABS: ALBUMIN 1.7 g/dL (3.5-5.0); BILIRUBIN,TOTAL 0.3 mg/dL (0.2-1.0); CREATININE 0.3 mg/dL (0.5-1.5); POTASSIUM 3.8 mmol/L (3.5-5.1); TOTAL PROTEIN, SERUM 5.3 g/dL (6.0-8.3)
[2020-02-22 04:38] LABS: CRP QUANTITATIVE 169.3 mg/L (0.00-9.0)
[2020-02-22 04:43] LABS: BAND NEUTROPHILS % (MANUAL) 14 % (0-2); LYMPHOCYTES % (MANUAL) 2 % (22-44); MAN.DIFF COMMENT-IMPRESSION MANUAL DIFFERENTIAL; MONOCYTES % (MANUAL) 5 % (2-9); PLATELET MORPHOLOGY COMMENT ADEQUATE; SEGMENTED NEUTROPHILS % 79 % (40-70)
[2020-02-22] MEDS: FENTANYL 2500MCG+NS 250ML 250 ML IV SCH ×2 (06:02→09:30)
[2020-02-22] MEDS: METOPROLOL TARTRATE 1 MG/ML 5ML VIAL IV SCH ×4 (06:02→23:00)
[2020-02-22] MEDS: PROPOFOL 1000 MG/100 ML 100 ML IV PRN ×3 (06:03→15:59)
[2020-02-22 07:45] LABS: ABG HCO3 33.6 mmol/L (21.0-28.0); ABG OXYGEN SATURATION 94.3 % (95.0-99.0); ABG PCO2 55 mmHg (32-45)
[2020-02-22] MEDS: PANTOPRAZOLE 40 MG/VIAL IVP SCH (08:23)
[2020-02-22] MEDS: METHYLPREDNISOLONE SOD SUCC 125MG/2ML VIAL IVP SCH ×2 (08:23→21:00)
[2020-02-22] MEDS: ACETYLCYSTEINE 600 MG CAPSULE PO SCH ×2 (08:23→21:00)
[2020-02-22] MEDS: DOCUSATE NA 100MG/10ML UDCUP NG SCH ×2 (08:23→21:00)
[2020-02-22] MEDS: ENOXAPARIN SODIUM 40 MG/0.4 ML SYRINGE SQ SCH (09:00)
[2020-02-22] MEDS: DEXMEDETOMIDINE HCL 400 MCG in SODIUM CHLORIDE 0.9% 100 ML IV SCH (11:06)
[2020-02-22] MEDS: ASCORBIC ACID 500 MG TAB PO SCH ×2 (11:17→21:00)
[2020-02-22] MEDS: ZINC SULFATE 220 CAPSULE PO SCH (11:17)
[2020-02-22] MEDS: MIDAZOLAM 100MG-0.9% NS 100ML 100 ML IV SCH (11:55)
[2020-02-22 12:24] LABS: INR 0.92 (0.85-1.15); PARTIAL THROMBOPLASTIN TIME 20.2 SEC (26.3-35.5)
[2020-02-22] MEDS: MEROPENEM 1 GM VIAL IVP SCH ×3 (14:00→23:15)
[2020-02-22] MEDS: NOREPINEPHRINE 4MG/NS 250ML 250 ML IV SCH (16:00)
[2020-02-23] VITALS (46 sets, daily range): BP systolic 79–182; BP diastolic 41–97
[2020-02-23] MEDS: MIDAZOLAM 100MG-0.9% NS 100ML 100 ML IV SCH ×3 (01:18→20:29)
[2020-02-23] MEDS: DEXMEDETOMIDINE HCL 400 MCG in SODIUM CHLORIDE 0.9% 100 ML IV SCH ×2 (04:02→12:46)
[2020-02-23 04:13] LABS: BASOPHILS % (AUTO) 0.1 % (0.0-5.0); HEMATOCRIT 31.2 % (36-48); LYMPHOCYTES % (AUTO) 3.2 % (21.0-51.0); MEAN CORPUSCULAR HEMOGLOBIN 29.4 pg (27.0-33.0); MEAN CORPUSCULAR HGB CONC 32.4 g/dL (32.0-36.0); MONOCYTES % (AUTO) 1.7 % (3.0-13.0); NEUTROPHILS % (AUTO) 83.8 % (40.0-77.0); NUCLEATED RED BLOOD CELLS 0.5 % (0.0-0.19); PLATELET COUNT (AUTO) 229 K/uL (130-400); RED BLOOD CELL COUNT(AUTO) 3.43 MIL/uL (4.00-5.50); RED CELL DISTRIBUTION WIDTH 16.2 % (11.0-15.5); WHITE BLOOD COUNT (AUTO) 16.5 K/uL (4.8-10.8)
[2020-02-23 04:34] LABS: ALBUMIN 1.6 g/dL (3.5-5.0); BILIRUBIN,TOTAL 0.3 mg/dL (0.2-1.0); CREATININE 0.1 mg/dL (0.5-1.5); POTASSIUM 3.3 mmol/L (3.5-5.1); TOTAL PROTEIN, SERUM 5.1 g/dL (6.0-8.3)
[2020-02-23] MEDS: METOPROLOL TARTRATE 1 MG/ML 5ML VIAL IV SCH ×4 (05:00→23:00)
[2020-02-23] MEDS: MEROPENEM 1 GM VIAL IVP SCH ×3 (06:36→20:28)
[2020-02-23] MEDS: POTASSIUM CHLORIDE 20MEQ/100ML 100 ML IV PRN (07:12)
[2020-02-23 07:41] LABS: ABG HCO3 30.7 mmol/L (21.0-28.0); ABG OXYGEN SATURATION 97.5 % (95.0-99.0); ABG PCO2 40 mmHg (32-45)
--- NOTE | 2020-02-23 08:00 | NUR ---
Received pt in bed intubated on Versed, fentanyl, Precedex and a Levophed drip, Morgan cath in place and Morgan care provided . Pt appears agitated and restless. B/P and HR are elevated. Pt was given Lopressor and a Propofol drip was resumed. Pt was placed in the prone position at 0900. Pt was suctioned and oral care was provided prior to repositioning. Pt tolerating repositioning. HR and B/P Stabilized. Will continue to monitor pt's progress.
[2020-02-23] MEDS ORDERED: ACETAZOLAMIDE SODIUM 500 MG VIAL IV SCH (09:30)
[2020-02-23] MEDS: PANTOPRAZOLE 40 MG/VIAL IVP SCH (09:33)
[2020-02-23] MEDS: ENOXAPARIN SODIUM 40 MG/0.4 ML SYRINGE SQ SCH (09:41)
[2020-02-23] MEDS: ASCORBIC ACID 500 MG TAB PO SCH ×2 (10:28→20:28)
[2020-02-23] MEDS: ZINC SULFATE 220 CAPSULE PO SCH (10:28)
[2020-02-23] MEDS: DOCUSATE NA 100MG/10ML UDCUP NG SCH ×2 (10:29→20:28)
--- NOTE | 2020-02-23 16:00 | NUR ---
N change in pt's condition at this time. Pt remains in stable and in the prone position at this time. Will continue to monitor pt's progress.
--- NOTE | 2020-02-23 18:00 | NUR ---
Pt remains stable at calm at this time. No change in pt's condition.
[2020-02-23] MEDS: METHYLPREDNISOLONE SOD SUCC 125MG/2ML VIAL IVP SCH (20:28)
[2020-02-23] MEDS: FENTANYL 2500MCG+NS 250ML 250 ML IV SCH (20:29)
[2020-02-24] VITALS (37 sets, daily range): BP systolic 80–145; BP diastolic 42–77
[2020-02-24] MEDS: METOPROLOL TARTRATE 1 MG/ML 5ML VIAL IV SCH ×4 (05:00→21:14)
[2020-02-24] MEDS: MEROPENEM 1 GM VIAL IVP SCH ×3 (05:59→20:37)
[2020-02-24 07:01] LABS: BASOPHILS % (AUTO) 0.1 % (0.0-5.0); EOSINOPHILS % (AUTO) 0.2 % (0.0-8.0); HEMATOCRIT 30.7 % (36-48); LYMPHOCYTES % (AUTO) 3.2 % (21.0-51.0); MEAN CORPUSCULAR HEMOGLOBIN 29.9 pg (27.0-33.0); MEAN CORPUSCULAR HGB CONC 30.9 g/dL (32.0-36.0); MEAN CORPUSCULAR VOLUME 96.5 fL (79-99); MONOCYTES % (AUTO) 1.9 % (3.0-13.0); NEUTROPHILS % (AUTO) 83.6 % (40.0-77.0); NUCLEATED RED BLOOD CELLS 0.5 % (0.0-0.19); PLATELET COUNT (AUTO) 204 K/uL (130-400); RED BLOOD CELL COUNT(AUTO) 3.18 MIL/uL (4.00-5.50); RED CELL DISTRIBUTION WIDTH 16.4 % (11.0-15.5); WHITE BLOOD COUNT (AUTO) 12.6 K/uL (4.8-10.8)
[2020-02-24 07:25] LABS: B-TYPE NATRIURETIC PEPTIDE 77 pg/mL (0-100)
[2020-02-24 07:29] LABS: ALBUMIN 1.4 g/dL (3.5-5.0); BILIRUBIN,TOTAL 0.2 mg/dL (0.2-1.0); CREATININE 0.2 mg/dL (0.5-1.5); CRP QUANTITATIVE 146.1 mg/L (0.00-9.0); POTASSIUM 3.4 mmol/L (3.5-5.1); TOTAL PROTEIN, SERUM 4.7 g/dL (6.0-8.3)
--- NOTE | 2020-02-24 08:00 | NUR ---
Received pt in bed in NAD. Pt is intubated with Versed, Fentanyl and levophed infusing. V/S's are WNL. Pt was placed in supine position, washed with espinoza and oral care given. Kake pad was placed on pt's bck. heels are floated off of mattress. PICC line is clean and intact. Vital increased to 25ml/hr. Wll continue to monitor pt's progress.
[2020-02-24] MEDS: ASCORBIC ACID 500 MG TAB PO SCH ×2 (09:57→20:37)
[2020-02-24] MEDS: ZINC SULFATE 220 CAPSULE PO SCH (09:57)
[2020-02-24] MEDS: DOCUSATE NA 100MG/10ML UDCUP NG SCH ×2 (09:57→21:03)
[2020-02-24] MEDS: METHYLPREDNISOLONE SOD SUCC 125MG/2ML VIAL IVP SCH (09:58)
[2020-02-24] MEDS: PANTOPRAZOLE 40 MG/VIAL IVP SCH (09:58)
--- NOTE | 2020-02-24 10:00 | NUR ---
Pt remains stable at this time. Dereje Rodriguez M in to see pt. Changes to fio2 made to keep sats greater than 92% Pt is tolerating changes at this time. Will continue to monitor pt's progress
[2020-02-24] MEDS: ENOXAPARIN SODIUM 40 MG/0.4 ML SYRINGE SQ SCH (10:07)
[2020-02-24] MEDS: POTASSIUM CHLORIDE 20MEQ/100ML 100 ML IV PRN ×2 (11:45→17:09)
[2020-02-24] MEDS: MIDAZOLAM 100MG-0.9% NS 100ML 100 ML IV SCH (16:54)
[2020-02-24] MEDS: FENTANYL 2500MCG+NS 250ML 250 ML IV SCH (17:02)
[2020-02-24] MEDS: NOREPINEPHRINE 4MG/NS 250ML 250 ML IV SCH (17:19)
--- NOTE | 2020-02-24 17:30 | NUR ---
5 FR 2 LUMEN PICC INSERTED TO LEFT CEPHALIC VEIN, USING ASEPTIC TECHNIQUE. PICC SUCCESSFULLY ACCESSED WITH ONE ATTEMPT, (+) CADEN ARRIAZA. BOTH LUMENS HAVE GOOD BLOOD RETURN AND FLUSHED EASILY AND CLAMPED. CATHETER TRIMMED TO 45 CM, WITH 43CM INTERNAL AND 2 CM EXTERNAL LENGTH. ARM CIRCUMFERENCE 30CM.
[2020-02-24] MEDS: DEXMEDETOMIDINE HCL 400 MCG in SODIUM CHLORIDE 0.9% 100 ML IV SCH (20:14)
[2020-02-25] VITALS (44 sets, daily range): BP systolic 86–133; BP diastolic 39–80
[2020-02-25] MEDS: METOPROLOL TARTRATE 1 MG/ML 5ML VIAL IV SCH ×4 (05:00→23:00)
[2020-02-25] MEDS: DEXMEDETOMIDINE HCL 400 MCG in SODIUM CHLORIDE 0.9% 100 ML IV SCH ×2 (05:27→14:24)
[2020-02-25] MEDS: MIDAZOLAM 100MG-0.9% NS 100ML 100 ML IV SCH ×2 (05:27→14:08)
[2020-02-25] MEDS: FENTANYL 2500MCG+NS 250ML 250 ML IV SCH (05:27)
[2020-02-25] MEDS: MEROPENEM 1 GM VIAL IVP SCH ×3 (05:27→21:14)
--- NOTE | 2020-02-25 07:30 | NUR ---
Received pt in bed in [facility], initial assessment completed and documented. Pt is intubated and sedated on versed and fentanyl, Pt has paralytic of precedex, Norepi infusing for B/P support. TF vital infusing at 25ml/kr. No BM noted. Pt repositioned. AM care given. Will continue to monitor pt's progress. Addendum: 02/25/20 at 0838 by OLIVIA Fernandes RN Precedex not a paralytic, used for sedation. Error
[2020-02-25] MEDS ORDERED: VANCOMYCIN PROTOCOL PER PHARMACY IV SCH (08:45)
[2020-02-25] MEDS: DOCUSATE NA 100MG/10ML UDCUP NG SCH ×2 (09:11→21:14)
[2020-02-25] MEDS: DEXAMETHASONE SOD PHOSPHATE 4 MG/ML 1ML VIAL IVP SCH (09:13)
[2020-02-25] MEDS: ENOXAPARIN SODIUM 40 MG/0.4 ML SYRINGE SQ SCH (09:13)
[2020-02-25] MEDS: ZINC SULFATE 220 CAPSULE PO SCH (09:14)
[2020-02-25] MEDS: PANTOPRAZOLE 40 MG/VIAL IVP SCH (09:14)
[2020-02-25] MEDS: ASCORBIC ACID 500 MG TAB PO SCH ×2 (09:14→21:14)
[2020-02-25] MEDS ORDERED: COMPOUND IV REFRIGERATED 1 EACH IVSOLN MISC PRN (09:15)
[2020-02-25] MEDS ORDERED: VANCOMYCIN 1.5 GM in SODIUM CHLORIDE 0.9% 250 ML IV SCH (09:15)
[2020-02-25 11:04] LABS: ABG BASE EXCESS 10.4 mmol/L (-2.0-3.0); ABG HCO3 38.5 mmol/L (21.0-28.0); ABG OXYGEN SATURATION 85.7 % (95.0-99.0); ABG PCO2 66 mmHg (32-45)
[2020-02-25] MEDS: LACTULOSE 20 GM/30 ML UDCUP PO PRN (15:39)
[2020-02-25] MEDS: NOREPINEPHRINE 4MG/NS 250ML 250 ML IV SCH (15:59)
[2020-02-25] MEDS: VANCOMYCIN 750MG + NS 250 ML IV SCH ×2 (21:14)
[2020-02-26] VITALS (80 sets, daily range): BP systolic 62–176; BP diastolic 28–102
[2020-02-26] MEDS: METOPROLOL TARTRATE 1 MG/ML 5ML VIAL IV SCH ×4 (04:56→22:32)
[2020-02-26 05:22] LABS: BASOPHILS % (AUTO) 0.8 % (0.0-5.0); EOSINOPHILS % (AUTO) 0.2 % (0.0-8.0); HEMATOCRIT 28.8 % (36-48); MEAN CORPUSCULAR HEMOGLOBIN 29.6 pg (27.0-33.0); MEAN CORPUSCULAR HGB CONC 30.6 g/dL (32.0-36.0); MONOCYTES % (AUTO) 2.5 % (3.0-13.0); NEUTROPHILS % (AUTO) 80.1 % (40.0-77.0); NUCLEATED RED BLOOD CELLS 0.8 % (0.0-0.19); PLATELET COUNT (AUTO) 204 K/uL (130-400); RED BLOOD CELL COUNT(AUTO) 2.97 MIL/uL (4.00-5.50); RED CELL DISTRIBUTION WIDTH 17.1 % (11.0-15.5); WHITE BLOOD COUNT (AUTO) 11.2 K/uL (4.8-10.8)
[2020-02-26 05:44] LABS: ALBUMIN 1.5 g/dL (3.5-5.0); BILIRUBIN,TOTAL 0.2 mg/dL (0.2-1.0); CREATININE 0.2 mg/dL (0.5-1.5); CRP QUANTITATIVE 60.5 mg/L (0.00-9.0); POTASSIUM 3.5 mmol/L (3.5-5.1); TOTAL PROTEIN, SERUM 5.1 g/dL (6.0-8.3)
[2020-02-26] MEDS: MEROPENEM 1 GM VIAL IVP SCH ×3 (07:13→22:32)
[2020-02-26] MEDS: MIDAZOLAM 100MG-0.9% NS 100ML 100 ML IV SCH (07:14)
[2020-02-26] MEDS: PROPOFOL 1000 MG/100 ML 100 ML IV PRN ×2 (07:14→22:41)
[2020-02-26] MEDS: FENTANYL 2500MCG+NS 250ML 250 ML IV SCH (07:14)
[2020-02-26] MEDS: VANCOMYCIN 750MG + NS 250 ML IV SCH ×4 (10:13→22:40)
[2020-02-26] MEDS: DEXAMETHASONE SOD PHOSPHATE 4 MG/ML 1ML VIAL IVP SCH (10:13)
[2020-02-26] MEDS: ASCORBIC ACID 500 MG TAB PO SCH ×2 (10:14→21:05)
[2020-02-26] MEDS: ZINC SULFATE 220 CAPSULE PO SCH (10:14)
[2020-02-26] MEDS: ENOXAPARIN SODIUM 40 MG/0.4 ML SYRINGE SQ SCH (10:14)
[2020-02-26] MEDS: PANTOPRAZOLE 40 MG/VIAL IVP SCH (10:15)
[2020-02-26] MEDS: DOCUSATE NA 100MG/10ML UDCUP NG SCH ×2 (10:15→21:05)
--- NOTE | 2020-02-26 10:30 | NUR ---
REPORT WAS GIVEN TO MOOKIE KAHN AND PT TO BE TRANSFERRED TO ROOM 232. Addendum: 02/26/20 at 1045 by QUINN JAMISON RN RN NOTE ON WRONG PATIENT.
[2020-02-26] MEDS: LEVOFLOXACIN 500 MG/D5W 100 ML 100 ML IV SCH (10:45)
--- NOTE | 2020-02-26 11:55 | NUR ---
CANCEL ORDER. Pt CONTINUES TO BE INTUBATED. ORDER PLACED IN ERROR. Addendum: 02/26/20 at 1157 by KIRK ERVIN [facility] Amended: Links added.
[2020-02-26] MEDS: CISATRACURIUM BESYLATE 100 MG in SODIUM CHLORIDE 0.9% 100 ML IV SCH (15:45)
--- NOTE | 2020-02-26 16:06 | NUR ---
PT HAS BEEN STARTED ON NIMBEX DUE TO BEING TACHYPNEIC AND HR IN 150'S. LEVOPHED WAS STOPPED AND WILL MONITOR BP.
[2020-02-27] VITALS (49 sets, daily range): BP systolic 106–164; BP diastolic 56–99
[2020-02-27] MEDS: PROPOFOL 1000 MG/100 ML 100 ML IV PRN (03:34)
[2020-02-27 03:57] LABS: BASOPHILS % (AUTO) 0.5 % (0.0-5.0); EOSINOPHILS % (AUTO) 0.2 % (0.0-8.0); LYMPHOCYTES % (AUTO) 7.1 % (21.0-51.0); MEAN CORPUSCULAR HEMOGLOBIN 29.6 pg (27.0-33.0); MEAN CORPUSCULAR HGB CONC 30.7 g/dL (32.0-36.0); MEAN CORPUSCULAR VOLUME 96.4 fL (79-99); MONOCYTES % (AUTO) 2.6 % (3.0-13.0); NEUTROPHILS % (AUTO) 80.5 % (40.0-77.0); NUCLEATED RED BLOOD CELLS 0.3 % (0.0-0.19); PLATELET COUNT (AUTO) 195 K/uL (130-400); RED CELL DISTRIBUTION WIDTH 16.7 % (11.0-15.5); WHITE BLOOD COUNT (AUTO) 9.4 K/uL (4.8-10.8)
[2020-02-27 04:19] LABS: ALBUMIN 1.4 g/dL (3.5-5.0); BILIRUBIN,TOTAL 0.3 mg/dL (0.2-1.0); CRP QUANTITATIVE 109.5 mg/L (0.00-9.0); POTASSIUM 3.1 mmol/L (3.5-5.1); TOTAL PROTEIN, SERUM 4.6 g/dL (6.0-8.3)
[2020-02-27 04:41] LABS: CREATININE 0.1 mg/dL (0.5-1.5)
[2020-02-27] MEDS: METOPROLOL TARTRATE 1 MG/ML 5ML VIAL IV SCH ×4 (05:00→22:50)
[2020-02-27] MEDS: MEROPENEM 1 GM VIAL IVP SCH ×3 (06:00→21:14)
[2020-02-27] MEDS: PANTOPRAZOLE 40 MG/VIAL IVP SCH (09:08)
[2020-02-27] MEDS: DEXAMETHASONE SOD PHOSPHATE 4 MG/ML 1ML VIAL IVP SCH (09:09)
[2020-02-27] MEDS: ASCORBIC ACID 500 MG TAB PO SCH ×2 (09:09→21:14)
[2020-02-27] MEDS: ZINC SULFATE 220 CAPSULE PO SCH (09:09)
[2020-02-27] MEDS: DOCUSATE NA 100MG/10ML UDCUP NG SCH ×2 (09:09→21:14)
[2020-02-27] MEDS: ENOXAPARIN SODIUM 40 MG/0.4 ML SYRINGE SQ SCH (09:11)
[2020-02-27] MEDS: VANCOMYCIN 750MG + NS 250 ML IV SCH ×4 (09:12→22:50)
[2020-02-27] MEDS: PANTOPRAZOLE SODIUM 40 MG TABLET.DR PO SCH (09:29)
[2020-02-27 09:52] LABS: ABG BASE EXCESS 14.4 mmol/L (-2.0-3.0); ABG HCO3 42.7 mmol/L (21.0-28.0); ABG OXYGEN SATURATION 95.3 % (95.0-99.0); ABG PCO2 69 mmHg (32-45)
[2020-02-27] MEDS: LEVOFLOXACIN 500 MG/D5W 100 ML 100 ML IV SCH (11:43)
--- NOTE | 2020-02-27 12:00 | NUR ---
PT WAS TURNED SUPINE AND WILL MONITOR O2 SATS.
[2020-02-27] MEDS: MIDAZOLAM 100MG-0.9% NS 100ML 100 ML IV SCH (17:10)
[2020-02-28] VITALS (25 sets, daily range): BP systolic 79–145; BP diastolic 43–77
[2020-02-28] MEDS: PROPOFOL 1000 MG/100 ML 100 ML IV PRN ×3 (00:52→21:34)
[2020-02-28] MEDS: MIDAZOLAM 100MG-0.9% NS 100ML 100 ML IV SCH ×3 (00:52→23:16)
[2020-02-28] MEDS: FENTANYL 2500MCG+NS 250ML 250 ML IV SCH ×3 (00:53→23:16)
[2020-02-28 04:43] LABS: BASOPHILS % (AUTO) 0.2 % (0.0-5.0); EOSINOPHILS % (AUTO) 0.1 % (0.0-8.0); LYMPHOCYTES % (AUTO) 7.1 % (21.0-51.0); MEAN CORPUSCULAR HEMOGLOBIN 29.5 pg (27.0-33.0); MEAN CORPUSCULAR HGB CONC 30.7 g/dL (32.0-36.0); MEAN CORPUSCULAR VOLUME 95.9 fL (79-99); MONOCYTES % (AUTO) 1.9 % (3.0-13.0); NEUTROPHILS % (AUTO) 86.9 % (40.0-77.0); NUCLEATED RED BLOOD CELLS 0.1 % (0.0-0.19); PLATELET COUNT (AUTO) 217 K/uL (130-400); RED BLOOD CELL COUNT(AUTO) 2.92 MIL/uL (4.00-5.50); RED CELL DISTRIBUTION WIDTH 17.3 % (11.0-15.5); WHITE BLOOD COUNT (AUTO) 14.6 K/uL (4.8-10.8)
[2020-02-28 05:05] LABS: ALANINE AMINOTRANSFERASE 107 U/L (12-78); ALBUMIN 1.4 g/dL (3.5-5.0); ASPARTATE AMINOTRANSFERASE 49 U/L (10-37); BILIRUBIN,TOTAL 0.4 mg/dL (0.2-1.0); CARBON DIOXIDE 44 mmol/L (21-32); CHLORIDE 99 mmol/L (101-111); GLUCOSE,RANDOM 100 mg/dL (70-105); LACTATE DEHYDROGENASE 433 U/L (81-234); SODIUM SERUM 143 mmol/L (136-145); TOTAL PROTEIN, SERUM 4.8 g/dL (6.0-8.3); UREA NITROGEN, BLOOD 7 mg/dL (7-18)
[2020-02-28 05:08] LABS: CREATININE < 0.2 mg/dL (0.5-1.5); GLOMERULAR FILTR. RATE CALC 385 mL/min (>60)
[2020-02-28] MEDS: METOPROLOL TARTRATE 1 MG/ML 5ML VIAL IV SCH ×4 (05:56→23:00)
[2020-02-28] MEDS: PANTOPRAZOLE SODIUM 40 MG TABLET.DR PO SCH (05:56)
[2020-02-28] MEDS: MEROPENEM 1 GM VIAL IVP SCH ×3 (05:56→21:33)
[2020-02-28] MEDS: POTASSIUM CHLORIDE 20MEQ/100ML 100 ML IV PRN ×3 (05:58→11:20)
[2020-02-28 07:27] LABS: ABG BASE EXCESS 15.7 mmol/L (-2.0-3.0); ABG HCO3 44.8 mmol/L (21.0-28.0); ABG PCO2 74 mmHg (32-45)
[2020-02-28 09:29] LABS: ABG BASE EXCESS 16.1 mmol/L (-2.0-3.0); ABG HCO3 45.8 mmol/L (21.0-28.0); ABG OXYGEN SATURATION 95.3 % (95.0-99.0); ABG PCO2 80 mmHg (32-45)
[2020-02-28] MEDS: ASCORBIC ACID 500 MG TAB PO SCH ×2 (09:50→20:23)
[2020-02-28] MEDS: DEXAMETHASONE SOD PHOSPHATE 4 MG/ML 1ML VIAL IVP SCH (09:50)
[2020-02-28] MEDS: VANCOMYCIN 1GM+NS 250ML 250 ML IV SCH ×2 (09:50→21:32)
[2020-02-28] MEDS: DOCUSATE NA 100MG/10ML UDCUP NG SCH ×2 (09:50→20:23)
[2020-02-28] MEDS: ENOXAPARIN SODIUM 40 MG/0.4 ML SYRINGE SQ SCH (09:51)
[2020-02-28] MEDS: ZINC SULFATE 220 CAPSULE PO SCH (10:09)
[2020-02-28] MEDS: NOREPINEPHRINE 4MG/NS 250ML 250 ML IV SCH (10:33)
[2020-02-28] MEDS: LEVOFLOXACIN 500 MG/D5W 100 ML 100 ML IV SCH (10:42)
--- NOTE | 2020-02-28 17:22 | NUR ---
was postioned in the prone position. Will continue to monitor pt closely. (V/Ss, O2 saturation)
[2020-02-28] MEDS: CISATRACURIUM BESYLATE 100 MG in SODIUM CHLORIDE 0.9% 100 ML IV SCH (18:23)
[2020-02-29] VITALS (65 sets, daily range): BP systolic 78–134; BP diastolic 36–73
[2020-02-29] MEDS: NOREPINEPHRINE 4MG/NS 250ML 250 ML IV SCH ×2 (03:23→16:37)
[2020-02-29] MEDS: METOPROLOL TARTRATE 1 MG/ML 5ML VIAL IV SCH ×4 (05:19→22:22)
[2020-02-29] MEDS: MEROPENEM 1 GM VIAL IVP SCH ×3 (05:43→20:32)
[2020-02-29] MEDS: PANTOPRAZOLE SODIUM 40 MG TABLET.DR PO SCH (05:49)
[2020-02-29 05:57] LABS: BASOPHILS % (AUTO) 0.4 % (0.0-5.0); EOSINOPHILS % (AUTO) 0.3 % (0.0-8.0); HEMATOCRIT 29.1 % (36-48); MEAN CORPUSCULAR HEMOGLOBIN 29.4 pg (27.0-33.0); MEAN CORPUSCULAR HGB CONC 30.2 g/dL (32.0-36.0); MEAN CORPUSCULAR VOLUME 97.3 fL (79-99); MONOCYTES % (AUTO) 1.4 % (3.0-13.0); NEUTROPHILS % (AUTO) 86.7 % (40.0-77.0); PLATELET COUNT (AUTO) 225 K/uL (130-400); RED BLOOD CELL COUNT(AUTO) 2.99 MIL/uL (4.00-5.50); RED CELL DISTRIBUTION WIDTH 16.8 % (11.0-15.5); WHITE BLOOD COUNT (AUTO) 11.1 K/uL (4.8-10.8)
[2020-02-29 06:24] LABS: ALANINE AMINOTRANSFERASE 105 U/L (12-78); ALBUMIN 1.5 g/dL (3.5-5.0); ASPARTATE AMINOTRANSFERASE 46 U/L (10-37); BILIRUBIN,TOTAL 0.4 mg/dL (0.2-1.0); CHLORIDE 101 mmol/L (101-111); GLUCOSE,RANDOM 92 mg/dL (70-105); LACTATE DEHYDROGENASE 451 U/L (81-234); POTASSIUM 3.4 mmol/L (3.5-5.1); SODIUM SERUM 144 mmol/L (136-145); TOTAL PROTEIN, SERUM 4.9 g/dL (6.0-8.3); UREA NITROGEN, BLOOD 6 mg/dL (7-18)
[2020-02-29 06:29] LABS: CREATININE < 2.0 mg/dL (0.5-1.5); GLOMERULAR FILTR. RATE CALC 27 mL/min (>60)
[2020-02-29 06:37] LABS: CARBON DIOXIDE 44 mmol/L (21-32)
[2020-02-29] MEDS: POTASSIUM CHLORIDE 20MEQ/100ML 100 ML IV PRN (06:51)
[2020-02-29 08:09] LABS: ABG BASE EXCESS 17.1 mmol/L (-2.0-3.0); ABG HCO3 44.2 mmol/L (21.0-28.0); ABG OXYGEN SATURATION 88.6 % (95.0-99.0); ABG PCO2 61 mmHg (32-45)
[2020-02-29] MEDS ORDERED: LACTATED RINGERS 1000ML IV SCH (09:00)
[2020-02-29] MEDS: ZINC SULFATE 220 CAPSULE PO SCH (09:20)
[2020-02-29] MEDS: DOCUSATE NA 100MG/10ML UDCUP NG SCH ×2 (09:20→20:32)
[2020-02-29] MEDS: ENOXAPARIN SODIUM 40 MG/0.4 ML SYRINGE SQ SCH (09:25)
[2020-02-29] MEDS: ASCORBIC ACID 500 MG TAB PO SCH ×2 (09:26→20:32)
[2020-02-29] MEDS: FENTANYL 2500MCG+NS 250ML 250 ML IV SCH (09:34)
[2020-02-29] MEDS: DEXAMETHASONE SOD PHOSPHATE 4 MG/ML 1ML VIAL IVP SCH (09:36)
[2020-02-29] MEDS ORDERED: COMPOUND IV REFRIGERATED 1 EACH IVSOLN MISC PRN (09:45)
[2020-02-29] MEDS: VANCOMYCIN 1.25 GM in SODIUM CHLORIDE 0.9% 250 ML IV SCH ×2 (10:35→20:32)
[2020-02-29] MEDS: LEVOFLOXACIN 500 MG/D5W 100 ML 100 ML IV SCH (10:56)
--- NOTE | 2020-02-29 12:00 | NUR ---
Pt placed in prone position. Vent changes made. Call placed to Dr. Cooper to inform him of pt's condition. Orders given.
[2020-02-29] MEDS: PROPOFOL 1000 MG/100 ML 100 ML IV PRN (14:32)
[2020-02-29 15:26] LABS: ABG BASE EXCESS 12.9 mmol/L (-2.0-3.0); ABG HCO3 42.5 mmol/L (21.0-28.0); ABG OXYGEN SATURATION 98.6 % (95.0-99.0); ABG PCO2 78 mmHg (32-45)
[2020-02-29 18:33] LABS: ABG BASE EXCESS 14.9 mmol/L (-2.0-3.0); ABG HCO3 42.3 mmol/L (21.0-28.0); ABG OXYGEN SATURATION 98.6 % (95.0-99.0); ABG PCO2 63 mmHg (32-45)
[2020-03-01] VITALS (51 sets, daily range): BP systolic 97–151; BP diastolic 44–81
[2020-03-01] MEDS: METOPROLOL TARTRATE 1 MG/ML 5ML VIAL IV SCH ×4 (05:00→23:00)
[2020-03-01 05:57] LABS: BASOPHILS % (AUTO) 0.3 % (0.0-5.0); EOSINOPHILS % (AUTO) 0.3 % (0.0-8.0); LYMPHOCYTES % (AUTO) 11.2 % (21.0-51.0); MEAN CORPUSCULAR HEMOGLOBIN 29.9 pg (27.0-33.0); MEAN CORPUSCULAR HGB CONC 30.7 g/dL (32.0-36.0); MEAN CORPUSCULAR VOLUME 97.1 fL (79-99); MONOCYTES % (AUTO) 2.1 % (3.0-13.0); NEUTROPHILS % (AUTO) 82.4 % (40.0-77.0); NUCLEATED RED BLOOD CELLS 0.2 % (0.0-0.19); PLATELET COUNT (AUTO) 255 K/uL (130-400); RED BLOOD CELL COUNT(AUTO) 2.78 MIL/uL (4.00-5.50); RED CELL DISTRIBUTION WIDTH 16.9 % (11.0-15.5); WHITE BLOOD COUNT (AUTO) 12.6 K/uL (4.8-10.8)
[2020-03-01 06:18] LABS: ALBUMIN 1.5 g/dL (3.5-5.0); BILIRUBIN,TOTAL 0.4 mg/dL (0.2-1.0); CREATININE 0.2 mg/dL (0.5-1.5); CRP QUANTITATIVE 137.8 mg/L (0.00-9.0); POTASSIUM 3.3 mmol/L (3.5-5.1)
[2020-03-01] MEDS: MEROPENEM 1 GM VIAL IVP SCH ×3 (06:58→21:14)
[2020-03-01 07:27] LABS: ABG BASE EXCESS 12.8 mmol/L (-2.0-3.0); ABG HCO3 40.4 mmol/L (21.0-28.0); ABG PCO2 64 mmHg (32-45)
[2020-03-01] MEDS: PANTOPRAZOLE SODIUM 40 MG TABLET.DR PO SCH (07:30)
[2020-03-01] MEDS: DOCUSATE NA 100MG/10ML UDCUP NG SCH ×2 (08:53→21:14)
[2020-03-01] MEDS: ASCORBIC ACID 500 MG TAB PO SCH ×2 (08:53→21:14)
[2020-03-01] MEDS: ZINC SULFATE 220 CAPSULE PO SCH (08:53)
[2020-03-01] MEDS: DEXAMETHASONE SOD PHOSPHATE 4 MG/ML 1ML VIAL IVP SCH (08:54)
[2020-03-01] MEDS: ENOXAPARIN SODIUM 40 MG/0.4 ML SYRINGE SQ SCH (08:54)
[2020-03-01] MEDS: LEVOFLOXACIN 500 MG/D5W 100 ML 100 ML IV SCH (10:06)
[2020-03-01] MEDS: VANCOMYCIN 1.25 GM in SODIUM CHLORIDE 0.9% 250 ML IV SCH ×2 (10:07→21:14)
[2020-03-01] MEDS: NOREPINEPHRINE 4MG/NS 250ML 250 ML IV SCH (11:14)
--- NOTE | 2020-03-01 11:35 | NUR ---
Daughter Felecia called and updated on patient condition. Clarification of code status. Daughter requesting patient be DNR. Daughter asking if it would be possible to transfer patient to hospice services while intubated. Spoke with Antoinette behavioral health case manager and patient would have to be extubated prior to transferring to hospice. Daughter informed and stated that they did not want to extubate patient at this time. Family to visit patient on Wednesday or Wednesday.
[2020-03-01] MEDS: MIDAZOLAM 100MG-0.9% NS 100ML 100 ML IV SCH (13:15)
[2020-03-01] MEDS: FENTANYL 2500MCG+NS 250ML 250 ML IV SCH (13:16)
--- NOTE | 2020-03-01 14:00 | NUR ---
Patient placed in prone position. Tolerated well.
[2020-03-01] MEDS: PROPOFOL 1000 MG/100 ML 100 ML IV PRN (17:04)
[2020-03-02] VITALS (41 sets, daily range): BP systolic 83–155; BP diastolic 43–92
[2020-03-02 04:05] LABS: BASOPHILS % (AUTO) 0.2 % (0.0-5.0); EOSINOPHILS % (AUTO) 0.4 % (0.0-8.0); HEMATOCRIT 22.9 % (36-48); LYMPHOCYTES % (AUTO) 10.7 % (21.0-51.0); MEAN CORPUSCULAR HEMOGLOBIN 30.2 pg (27.0-33.0); MEAN CORPUSCULAR VOLUME 97.4 fL (79-99); NEUTROPHILS % (AUTO) 80.5 % (40.0-77.0); PLATELET COUNT (AUTO) 218 K/uL (130-400); RED BLOOD CELL COUNT(AUTO) 2.35 MIL/uL (4.00-5.50); RED CELL DISTRIBUTION WIDTH 16.8 % (11.0-15.5); WHITE BLOOD COUNT (AUTO) 9.3 K/uL (4.8-10.8)
[2020-03-02 04:28] LABS: ALBUMIN 1.3 g/dL (3.5-5.0); BILIRUBIN,TOTAL 0.3 mg/dL (0.2-1.0); CREATININE 0.1 mg/dL (0.5-1.5); CRP QUANTITATIVE 82.5 mg/L (0.00-9.0); TOTAL PROTEIN, SERUM 4.2 g/dL (6.0-8.3)
[2020-03-02 04:38] LABS: POTASSIUM 2.8 mmol/L (3.5-5.1)
[2020-03-02] MEDS: METOPROLOL TARTRATE 1 MG/ML 5ML VIAL IV SCH ×4 (05:00→21:07)
[2020-03-02] MEDS: MEROPENEM 1 GM VIAL IVP SCH ×3 (05:54→21:06)
[2020-03-02] MEDS: POTASSIUM CHLORIDE 20MEQ/100ML 100 ML IV PRN (06:33)
[2020-03-02 07:41] LABS: ABG HCO3 39.3 mmol/L (21.0-28.0); ABG OXYGEN SATURATION 92.1 % (95.0-99.0); ABG PCO2 62 mmHg (32-45)
[2020-03-02] MEDS: ZINC SULFATE 220 CAPSULE PO SCH (08:56)
[2020-03-02] MEDS: DOCUSATE NA 100MG/10ML UDCUP NG SCH ×2 (08:56→21:06)
[2020-03-02] MEDS: DEXAMETHASONE SOD PHOSPHATE 4 MG/ML 1ML VIAL IVP SCH (08:59)
[2020-03-02] MEDS: PANTOPRAZOLE SODIUM 40 MG TABLET.DR PO SCH (08:59)
[2020-03-02] MEDS: ENOXAPARIN SODIUM 40 MG/0.4 ML SYRINGE SQ SCH (09:00)
[2020-03-02] MEDS: ASCORBIC ACID 500 MG TAB PO SCH ×2 (09:02→21:06)
[2020-03-02] MEDS: FENTANYL 2500MCG+NS 250ML 250 ML IV SCH ×2 (10:37→18:10)
[2020-03-02] MEDS: LEVOFLOXACIN 500 MG/D5W 100 ML 100 ML IV SCH (11:14)
[2020-03-02] MEDS: VANCOMYCIN 1.25 GM in SODIUM CHLORIDE 0.9% 250 ML IV SCH ×2 (11:20→21:06)
[2020-03-02] MEDS: PROPOFOL 1000 MG/100 ML 100 ML IV PRN (18:09)
[2020-03-02] MEDS: NOREPINEPHRINE 4MG/NS 250ML 250 ML IV SCH (18:49)
[2020-03-03] VITALS (41 sets, daily range): BP systolic 86–141; BP diastolic 40–82
[2020-03-03] MEDS: METOPROLOL TARTRATE 1 MG/ML 5ML VIAL IV SCH ×4 (04:30→23:00)
[2020-03-03] MEDS: MEROPENEM 1 GM VIAL IVP SCH (04:31)
[2020-03-03] MEDS: FENTANYL 2500MCG+NS 250ML 250 ML IV SCH ×2 (04:31→14:46)
[2020-03-03 04:34] LABS: BASOPHILS % (AUTO) 0.3 % (0.0-5.0); EOSINOPHILS % (AUTO) 0.3 % (0.0-8.0); HEMATOCRIT 26.6 % (36-48); LYMPHOCYTES % (AUTO) 13.4 % (21.0-51.0); MEAN CORPUSCULAR HEMOGLOBIN 30.3 pg (27.0-33.0); MEAN CORPUSCULAR HGB CONC 31.2 g/dL (32.0-36.0); MEAN CORPUSCULAR VOLUME 97.1 fL (79-99); MONOCYTES % (AUTO) 2.6 % (3.0-13.0); NEUTROPHILS % (AUTO) 77.9 % (40.0-77.0); PLATELET COUNT (AUTO) 223 K/uL (130-400); RED BLOOD CELL COUNT(AUTO) 2.74 MIL/uL (4.00-5.50); WHITE BLOOD COUNT (AUTO) 8.9 K/uL (4.8-10.8)
[2020-03-03 05:09] LABS: ALBUMIN 1.3 g/dL (3.5-5.0); BILIRUBIN,TOTAL 0.5 mg/dL (0.2-1.0); CRP QUANTITATIVE 84.5 mg/L (0.00-9.0); TOTAL PROTEIN, SERUM 4.4 g/dL (6.0-8.3)
[2020-03-03 05:16] LABS: CREATININE 0.1 mg/dL (0.5-1.5)
[2020-03-03 05:18] LABS: POTASSIUM 2.9 mmol/L (3.5-5.1)
--- NOTE | 2020-03-03 07:00 | NUR ---
REPORT; RECEIVED REPORT FROM QUALITY CONTROL TECHNICIAN RN, RESTIING QUEITLY ON VENTILATOR AND SEDATED, VSS
[2020-03-03 07:14] LABS: ABG BASE EXCESS 12.8 mmol/L (-2.0-3.0); ABG HCO3 40.8 mmol/L (21.0-28.0); ABG OXYGEN SATURATION 92.9 % (95.0-99.0); ABG PCO2 67 mmHg (32-45)
[2020-03-03] MEDS: POTASSIUM CHLORIDE 20MEQ/100ML 100 ML IV PRN ×3 (07:57→21:26)
--- NOTE | 2020-03-03 08:00 | NUR ---
ASSESSMENT: COMPLETED LABS REVIEWED AND DRIP REVIEWED, VENTILATOR SETTING REVIEW NO CHANGES FROM PREVIOUS. HR-ST. VSS.
[2020-03-03] MEDS: DEXAMETHASONE SOD PHOSPHATE 4 MG/ML 1ML VIAL IVP SCH (08:22)
[2020-03-03] MEDS: ZINC SULFATE 220 CAPSULE PO SCH (08:22)
[2020-03-03] MEDS: DOCUSATE NA 100MG/10ML UDCUP NG SCH ×2 (08:22→21:25)
[2020-03-03] MEDS: ASCORBIC ACID 500 MG TAB PO SCH ×2 (08:23→21:25)
[2020-03-03] MEDS: ENOXAPARIN SODIUM 40 MG/0.4 ML SYRINGE SQ SCH (08:23)
[2020-03-03] MEDS: FAMOTIDINE/PF 20 MG/2 ML VIAL IV SCH ×2 (09:56→21:25)
--- NOTE | 2020-03-03 10:00 | NUR ---
DOCTOR ROUNDS, UPDATED DR SILVINA WALDEN ON CONDITON OF PATIENT, NO NEW ORDERS, JUST BOWEL REGIMEN, NO NOTED BOWEL MOVEMENT FOR SEVERAL DAYS.
[2020-03-03] MEDS: NOREPINEPHRINE 4MG/NS 250ML 250 ML IV SCH (10:02)
[2020-03-03] MEDS: LEVOFLOXACIN 500 MG/D5W 100 ML 100 ML IV SCH (10:15)
[2020-03-03] MEDS: LACTULOSE 20 GM/30 ML UDCUP PO PRN (11:53)
[2020-03-03] MEDS ORDERED: VANCOMYCIN 1GM+NS 250ML 0 ML IV ONE (11:58)
[2020-03-03] MEDS: VANCOMYCIN 1.25 GM in SODIUM CHLORIDE 0.9% 250 ML IV SCH ×2 (12:00→21:25)
--- NOTE | 2020-03-03 14:30 | NUR ---
PRONE: PLACED IN PRONE POSITION TOLERATING WELL. VSS.
[2020-03-03] MEDS: CISATRACURIUM BESYLATE 100 MG in SODIUM CHLORIDE 0.9% 100 ML IV SCH (14:46)
[2020-03-03] MEDS: PROPOFOL 1000 MG/100 ML 100 ML IV PRN (14:47)
[2020-03-03] MEDS ORDERED: NOREPINEPHRINE BITARTRATE 32 MG in SODIUM CHLORIDE 0.9% 250 ML IV SCH (21:00)
[2020-03-04] VITALS (59 sets, daily range): BP systolic 72–149; BP diastolic 24–74
[2020-03-04] MEDS: METOPROLOL TARTRATE 1 MG/ML 5ML VIAL IV SCH ×4 (04:22→23:00)
--- NOTE | 2020-03-04 07:00 | NUR ---
REPORT RECEIVED ASSUMED CARE, IN PRONE POSITION.
[2020-03-04 08:29] LABS: HEMATOCRIT 30.1 % (36-48); MEAN CORPUSCULAR HEMOGLOBIN 29.5 pg (27.0-33.0); MEAN CORPUSCULAR HGB CONC 29.9 g/dL (32.0-36.0); MEAN CORPUSCULAR VOLUME 98.7 fL (79-99); NUCLEATED RED BLOOD CELLS 0.8 % (0.0-0.19); PLATELET COUNT (AUTO) 251 K/uL (130-400); RED BLOOD CELL COUNT(AUTO) 3.05 MIL/uL (4.00-5.50); RED CELL DISTRIBUTION WIDTH 17.7 % (11.0-15.5); WHITE BLOOD COUNT (AUTO) 11.3 K/uL (4.8-10.8)
[2020-03-04 08:45] LABS: POTASSIUM 3.3 mmol/L (3.5-5.1)
[2020-03-04 09:11] LABS: CREATININE 0.5 mg/dL (0.5-1.5)
[2020-03-04 09:13] LABS: ABG BASE EXCESS 10.6 mmol/L (-2.0-3.0); ABG HCO3 39.1 mmol/L (21.0-28.0); ABG OXYGEN SATURATION 87.6 % (95.0-99.0); ABG PCO2 70 mmHg (32-45)
[2020-03-04 09:32] LABS: BAND NEUTROPHILS % (MANUAL) 13 % (0-2); BASOPHILS % (MANUAL) 1 % (0-2); EOSINOPHILS % (MANUAL) 1 % (1-6); LYMPHOCYTES % (MANUAL) 5 % (22-44); MAN.DIFF COMMENT-IMPRESSION MANUAL DIFFERENTIAL; MONOCYTES % (MANUAL) 5 % (2-9); PLATELET MORPHOLOGY COMMENT ADEQUATE; SEGMENTED NEUTROPHILS % 75 % (40-70)
[2020-03-04] MEDS: VANCOMYCIN 1.25 GM in SODIUM CHLORIDE 0.9% 250 ML IV SCH ×2 (10:00→20:13)
[2020-03-04] MEDS: DOCUSATE NA 100MG/10ML UDCUP NG SCH ×2 (10:15→20:13)
[2020-03-04] MEDS: ZINC SULFATE 220 CAPSULE PO SCH (10:15)
[2020-03-04] MEDS: ASCORBIC ACID 500 MG TAB PO SCH ×2 (10:15→20:13)
[2020-03-04] MEDS: FAMOTIDINE/PF 20 MG/2 ML VIAL IV SCH ×2 (10:15→20:13)
[2020-03-04] MEDS: DEXAMETHASONE SOD PHOSPHATE 4 MG/ML 1ML VIAL IVP SCH (10:15)
[2020-03-04] MEDS: ENOXAPARIN SODIUM 40 MG/0.4 ML SYRINGE SQ SCH (10:22)
[2020-03-04] MEDS ORDERED: NOREPINEPHRINE 4MG/NS 250ML 250 ML IV ONE ×2 (11:55→19:36)
[2020-03-04] MEDS: LEVOFLOXACIN 500 MG/D5W 100 ML 100 ML IV SCH (12:21)
[2020-03-04] MEDS ORDERED: NOREPINEPHRINE 4MG/NS 250ML 250 ML IV PRN (20:15)
[2020-03-05] VITALS (42 sets, daily range): BP systolic 89–156; BP diastolic 37–91
[2020-03-05] MEDS: MIDAZOLAM 100MG-0.9% NS 100ML 100 ML IV SCH ×3 (00:26→19:16)
[2020-03-05 04:16] LABS: BASOPHILS % (AUTO) 0.3 % (0.0-5.0); EOSINOPHILS % (AUTO) 0.8 % (0.0-8.0); HEMATOCRIT 24.3 % (36-48); LYMPHOCYTES % (AUTO) 16.9 % (21.0-51.0); MEAN CORPUSCULAR HEMOGLOBIN 30.1 pg (27.0-33.0); MEAN CORPUSCULAR HGB CONC 30.5 g/dL (32.0-36.0); MEAN CORPUSCULAR VOLUME 98.8 fL (79-99); NEUTROPHILS % (AUTO) 73.5 % (40.0-77.0); NUCLEATED RED BLOOD CELLS 0.2 % (0.0-0.19); PLATELET COUNT (AUTO) 301 K/uL (130-400); RED BLOOD CELL COUNT(AUTO) 2.46 MIL/uL (4.00-5.50); RED CELL DISTRIBUTION WIDTH 17.7 % (11.0-15.5); WHITE BLOOD COUNT (AUTO) 10.5 K/uL (4.8-10.8)
[2020-03-05 04:40] LABS: ALBUMIN 1.2 g/dL (3.5-5.0); BILIRUBIN,TOTAL 0.3 mg/dL (0.2-1.0); CREATININE 0.1 mg/dL (0.5-1.5); POTASSIUM 3.2 mmol/L (3.5-5.1); TOTAL PROTEIN, SERUM 4.1 g/dL (6.0-8.3)
[2020-03-05] MEDS: METOPROLOL TARTRATE 1 MG/ML 5ML VIAL IV SCH ×4 (05:00→23:10)
[2020-03-05] MEDS: PROPOFOL 1000 MG/100 ML 100 ML IV PRN ×3 (05:02→19:17)
[2020-03-05 05:05] LABS: CRP QUANTITATIVE 228.6 mg/L (0.00-9.0)
[2020-03-05 07:26] LABS: ABG BASE EXCESS 15.1 mmol/L (-2.0-3.0); ABG HCO3 45.1 mmol/L (21.0-28.0); ABG PCO2 82 mmHg (32-45)
[2020-03-05] MEDS: DOCUSATE NA 100MG/10ML UDCUP NG SCH ×2 (08:30→20:34)
[2020-03-05] MEDS: FAMOTIDINE/PF 20 MG/2 ML VIAL IV SCH ×2 (08:30→20:33)
[2020-03-05] MEDS: ZINC SULFATE 220 CAPSULE PO SCH (08:31)
[2020-03-05] MEDS: ASCORBIC ACID 500 MG TAB PO SCH ×2 (08:31→20:34)
[2020-03-05] MEDS: DEXAMETHASONE SOD PHOSPHATE 4 MG/ML 1ML VIAL IVP SCH (08:31)
[2020-03-05] MEDS: ENOXAPARIN SODIUM 40 MG/0.4 ML SYRINGE SQ SCH (08:32)
[2020-03-05] MEDS: POTASSIUM CHLORIDE 20MEQ/100ML 100 ML IV PRN ×3 (09:00→13:00)
[2020-03-05] MEDS: FENTANYL 2500MCG+NS 250ML 250 ML IV SCH ×3 (10:03→19:16)
[2020-03-05] MEDS: LEVOFLOXACIN 500 MG/D5W 100 ML 100 ML IV SCH (12:20)
[2020-03-05] MEDS: VANCOMYCIN 1.25 GM in SODIUM CHLORIDE 0.9% 250 ML IV SCH ×2 (12:21→20:35)
--- NOTE | 2020-03-05 13:11 | NUR ---
V200 V#[id number] Addendum: 03/05/20 at 1311 by DELMER GAYTANLT Amended: Links added.
[2020-03-05] MEDS: CISATRACURIUM BESYLATE 100 MG in SODIUM CHLORIDE 0.9% 100 ML IV SCH (18:47)
[2020-03-05] MEDS: LACTULOSE 20 GM/30 ML UDCUP PO PRN (20:33)
[2020-03-06] VITALS (47 sets, daily range): BP systolic 81–182; BP diastolic 38–89
[2020-03-06 03:58] LABS: BASOPHILS % (AUTO) 0.2 % (0.0-5.0); EOSINOPHILS % (AUTO) 0.5 % (0.0-8.0); HEMATOCRIT 24.5 % (36-48); LYMPHOCYTES % (AUTO) 17.6 % (21.0-51.0); MEAN CORPUSCULAR HEMOGLOBIN 29.9 pg (27.0-33.0); MEAN CORPUSCULAR HGB CONC 30.6 g/dL (32.0-36.0); MEAN CORPUSCULAR VOLUME 97.6 fL (79-99); MONOCYTES % (AUTO) 2.4 % (3.0-13.0); NUCLEATED RED BLOOD CELLS 0.5 % (0.0-0.19); PLATELET COUNT (AUTO) 294 K/uL (130-400); RED BLOOD CELL COUNT(AUTO) 2.51 MIL/uL (4.00-5.50); RED CELL DISTRIBUTION WIDTH 18.3 % (11.0-15.5); WHITE BLOOD COUNT (AUTO) 8.4 K/uL (4.8-10.8)
[2020-03-06 04:15] LABS: ALBUMIN 1.2 g/dL (3.5-5.0); BILIRUBIN,TOTAL 0.4 mg/dL (0.2-1.0); CREATININE 0.2 mg/dL (0.5-1.5); MAGNESIUM 1.7 mg/dL (1.80-2.40); PHOSPHORUS 1.7 mg/dL (2.5-4.9); TOTAL PROTEIN, SERUM 4.3 g/dL (6.0-8.3)
[2020-03-06 04:27] LABS: CRP QUANTITATIVE 202.7 mg/L (0.00-9.0)
[2020-03-06] MEDS: METOPROLOL TARTRATE 1 MG/ML 5ML VIAL IV SCH ×4 (05:59→22:17)
[2020-03-06] MEDS: PROPOFOL 1000 MG/100 ML 100 ML IV PRN ×2 (06:00→14:40)
[2020-03-06] MEDS: FENTANYL 2500MCG+NS 250ML 250 ML IV SCH ×2 (06:00→14:42)
[2020-03-06] MEDS: MIDAZOLAM 100MG-0.9% NS 100ML 100 ML IV SCH ×2 (06:00→14:41)
[2020-03-06] MEDS: FAMOTIDINE/PF 20 MG/2 ML VIAL IV SCH ×2 (09:36→20:13)
[2020-03-06] MEDS: ZINC SULFATE 220 CAPSULE PO SCH (09:36)
[2020-03-06] MEDS: DEXAMETHASONE SOD PHOSPHATE 4 MG/ML 1ML VIAL IVP SCH (09:36)
[2020-03-06] MEDS: DOCUSATE NA 100MG/10ML UDCUP NG SCH ×2 (09:36→20:13)
[2020-03-06] MEDS: ASCORBIC ACID 500 MG TAB PO SCH ×2 (09:36→20:13)
[2020-03-06] MEDS: LACTULOSE 20 GM/30 ML UDCUP PO PRN (09:36)
[2020-03-06] MEDS: VANCOMYCIN 1.25 GM in SODIUM CHLORIDE 0.9% 250 ML IV SCH ×2 (09:37→20:13)
[2020-03-06] MEDS: ENOXAPARIN SODIUM 40 MG/0.4 ML SYRINGE SQ SCH ×2 (09:38→20:13)
[2020-03-06] MEDS: CISATRACURIUM BESYLATE 100 MG in SODIUM CHLORIDE 0.9% 100 ML IV SCH (09:43)
[2020-03-06] MEDS: LEVOFLOXACIN 500 MG/D5W 100 ML 100 ML IV SCH (10:57)
--- NOTE | 2020-03-06 15:35 | NUR ---
RD FOLLOW UP Pt tolerating tube feeding Vital AF 1.2 @20mls/hr. Advancing to Goal as tolerated as per RN. Goal rate of 45mls/hr. Free water at 100mls Q6hrs. Propofol 10.9mls/hr 288kcal. Monitored labs: Na 147, BUN 4, Cr 0.2, BG 165, P 1.7, Mg 1.70, Alb 1.2. RD to continue to monitor. Please notify as additional nutrition concerns arise. Thank you.
[2020-03-06] MEDS: MAGNESIUM 2GM PREMIX 50ML 50 ML IV SCH (15:51)
[2020-03-06] MEDS ORDERED: PHARMACY COMMUNICATION MISC SCH (17:15)
[2020-03-07] VITALS (34 sets, daily range): BP systolic 84–148; BP diastolic 44–82
[2020-03-07] MEDS: MIDAZOLAM 100MG-0.9% NS 100ML 100 ML IV SCH ×3 (02:28→21:16)
[2020-03-07] MEDS: FENTANYL 2500MCG+NS 250ML 250 ML IV SCH ×3 (02:29→21:16)
[2020-03-07 04:00] LABS: BASOPHILS % (AUTO) 0.1 % (0.0-5.0); EOSINOPHILS % (AUTO) 0.2 % (0.0-8.0); HEMATOCRIT 22.4 % (36-48); LYMPHOCYTES % (AUTO) 32.6 % (21.0-51.0); MEAN CORPUSCULAR HEMOGLOBIN 30.2 pg (27.0-33.0); MEAN CORPUSCULAR HGB CONC 31.3 g/dL (32.0-36.0); MEAN CORPUSCULAR VOLUME 96.6 fL (79-99); MONOCYTES % (AUTO) 3.1 % (3.0-13.0); NEUTROPHILS % (AUTO) 61.4 % (40.0-77.0); PLATELET COUNT (AUTO) 318 K/uL (130-400); RED BLOOD CELL COUNT(AUTO) 2.32 MIL/uL (4.00-5.50); RED CELL DISTRIBUTION WIDTH 18.9 % (11.0-15.5); WHITE BLOOD COUNT (AUTO) 8.4 K/uL (4.8-10.8)
[2020-03-07 04:26] LABS: BILIRUBIN,TOTAL 0.3 mg/dL (0.2-1.0); CREATININE 0.3 mg/dL (0.5-1.5); TOTAL PROTEIN, SERUM 4.4 g/dL (6.0-8.3)
[2020-03-07] MEDS: METOPROLOL TARTRATE 1 MG/ML 5ML VIAL IV SCH (04:34)
[2020-03-07] MEDS: CISATRACURIUM BESYLATE 100 MG in SODIUM CHLORIDE 0.9% 100 ML IV SCH ×3 (04:35→21:15)
[2020-03-07 04:47] LABS: CRP QUANTITATIVE 378.9 mg/L (0.00-9.0)
[2020-03-07 05:04] LABS: POTASSIUM 2.9 mmol/L (3.5-5.1)
[2020-03-07] MEDS: ASCORBIC ACID 500 MG TAB PO SCH ×2 (08:39→21:13)
[2020-03-07] MEDS: DEXAMETHASONE SOD PHOSPHATE 4 MG/ML 1ML VIAL IVP SCH (08:39)
[2020-03-07] MEDS: DOCUSATE NA 100MG/10ML UDCUP NG SCH ×2 (08:39→21:13)
[2020-03-07] MEDS: ZINC SULFATE 220 CAPSULE PO SCH (08:39)
[2020-03-07] MEDS: FAMOTIDINE/PF 20 MG/2 ML VIAL IV SCH ×2 (08:39→21:13)
[2020-03-07] MEDS: POTASSIUM CHLORIDE 20MEQ/100ML 100 ML IV PRN ×3 (08:44→13:10)
[2020-03-07] MEDS: ENOXAPARIN SODIUM 40 MG/0.4 ML SYRINGE SQ SCH ×2 (08:44→21:14)
[2020-03-07] MEDS: PROPOFOL 1000 MG/100 ML 100 ML IV PRN ×2 (09:55→18:31)
[2020-03-07] MEDS: VANCOMYCIN 1.25 GM in SODIUM CHLORIDE 0.9% 250 ML IV SCH (09:56)
[2020-03-07] MEDS: NOREPINEPHRINE BITARTRATE 32 MG in SODIUM CHLORIDE 0.9% 250 ML IV SCH (11:07)
[2020-03-07] MEDS: BACTRIM IV SCH ×2 (12:02→22:47)
[2020-03-07] MEDS: SODIUM CHLORIDE 0.9% IV SCH ×2 (12:02→22:47)
[2020-03-07] MEDS: POTASSIUM CHLORIDE 20 MEQ in DEXTROSE 5%-WATER 1,000 ML IV SCH (16:45)
[2020-03-08] VITALS (49 sets, daily range): BP systolic 77–161; BP diastolic 47–83
[2020-03-08] MEDS ORDERED: SODIUM CHLORIDE 0.9% 250 ML IV ONE (00:23)
--- NOTE | 2020-03-08 02:20 | NUR ---
NECKTIE OPERATOR POCKETS AND PIECES SSOLIS 2ND ICU Addendum: 03/11/20 at 0921 by DELMER SHEETS RTSLT Amended: Links added.
[2020-03-08 06:47] LABS: BASOPHILS % (AUTO) 0.2 % (0.0-5.0); EOSINOPHILS % (AUTO) 1.2 % (0.0-8.0); HEMATOCRIT 26.7 % (36-48); LYMPHOCYTES % (AUTO) 18.5 % (21.0-51.0); MEAN CORPUSCULAR HEMOGLOBIN 30.6 pg (27.0-33.0); MEAN CORPUSCULAR HGB CONC 31.8 g/dL (32.0-36.0); MONOCYTES % (AUTO) 5.3 % (3.0-13.0); NEUTROPHILS % (AUTO) 69.1 % (40.0-77.0); NUCLEATED RED BLOOD CELLS 0.4 % (0.0-0.19); PLATELET COUNT (AUTO) 305 K/uL (130-400); RED BLOOD CELL COUNT(AUTO) 2.78 MIL/uL (4.00-5.50); RED CELL DISTRIBUTION WIDTH 17.8 % (11.0-15.5); WHITE BLOOD COUNT (AUTO) 9.4 K/uL (4.8-10.8)
[2020-03-08] MEDS: SODIUM CHLORIDE 0.9% IV SCH ×3 (07:06→22:00)
[2020-03-08] MEDS: BACTRIM IV SCH ×3 (07:06→22:00)
[2020-03-08] MEDS: POTASSIUM CHLORIDE 20 MEQ in DEXTROSE 5%-WATER 1,000 ML IV SCH ×2 (07:06→13:10)
[2020-03-08 07:14] LABS: % IRON SATURATION 66.3 % (22-44)
[2020-03-08 07:15] LABS: BILIRUBIN,TOTAL 0.3 mg/dL (0.2-1.0); CREATININE 0.3 mg/dL (0.5-1.5); POTASSIUM 3.8 mmol/L (3.5-5.1); TOTAL PROTEIN, SERUM 4.4 g/dL (6.0-8.3)
[2020-03-08 07:32] LABS: CRP QUANTITATIVE 202.3 mg/L (0.00-9.0)
[2020-03-08] MEDS: ENOXAPARIN SODIUM 40 MG/0.4 ML SYRINGE SQ SCH ×2 (08:33→21:00)
[2020-03-08] MEDS: DEXAMETHASONE SOD PHOSPHATE 4 MG/ML 1ML VIAL IVP SCH (08:33)
[2020-03-08] MEDS: DOCUSATE NA 100MG/10ML UDCUP NG SCH ×2 (08:34→21:00)
[2020-03-08] MEDS: ASCORBIC ACID 500 MG TAB PO SCH ×2 (08:34→21:00)
[2020-03-08] MEDS: ZINC SULFATE 220 CAPSULE PO SCH (08:34)
[2020-03-08] MEDS: FAMOTIDINE/PF 20 MG/2 ML VIAL IV SCH ×2 (08:34→21:00)
[2020-03-08 10:51] LABS: ABG BASE EXCESS 7.8 mmol/L (-2.0-3.0); ABG HCO3 34.3 mmol/L (21.0-28.0); ABG OXYGEN SATURATION 94.8 % (95.0-99.0); ABG PCO2 55 mmHg (32-45)
--- NOTE | 2020-03-08 13:04 | NUR ---
Dr. Cooper at bedside. Discussed plan of care. Goals to decrease PEEP to 5 and fi02 to 60%. DC nimbex and then versed. wean off of levophed as tolerated.
[2020-03-08] MEDS: FENTANYL 2500MCG+NS 250ML 250 ML IV SCH (16:26)
[2020-03-08] MEDS: PROPOFOL 1000 MG/100 ML 100 ML IV PRN (16:26)
[2020-03-08] MEDS: MIDAZOLAM 100MG-0.9% NS 100ML 100 ML IV SCH (17:07)
[2020-03-09] VITALS (89 sets, daily range): BP systolic 63–181; BP diastolic 37–96
[2020-03-09 03:59] LABS: BASOPHILS % (AUTO) 0.3 % (0.0-5.0); EOSINOPHILS % (AUTO) 1.3 % (0.0-8.0); HEMATOCRIT 25.8 % (36-48); LYMPHOCYTES % (AUTO) 23.9 % (21.0-51.0); MEAN CORPUSCULAR HEMOGLOBIN 30.4 pg (27.0-33.0); MEAN CORPUSCULAR HGB CONC 32.2 g/dL (32.0-36.0); MEAN CORPUSCULAR VOLUME 94.5 fL (79-99); NEUTROPHILS % (AUTO) 62.7 % (40.0-77.0); NUCLEATED RED BLOOD CELLS 0.8 % (0.0-0.19); PLATELET COUNT (AUTO) 347 K/uL (130-400); RED BLOOD CELL COUNT(AUTO) 2.73 MIL/uL (4.00-5.50)
[2020-03-09 04:17] LABS: BILIRUBIN,TOTAL 0.2 mg/dL (0.2-1.0); CREATININE 0.3 mg/dL (0.5-1.5); CRP QUANTITATIVE 123.4 mg/L (0.00-9.0); POTASSIUM 4.5 mmol/L (3.5-5.1); TOTAL PROTEIN, SERUM 4.4 g/dL (6.0-8.3)
[2020-03-09] MEDS: SODIUM CHLORIDE 0.9% IV SCH ×3 (06:15→21:52)
[2020-03-09] MEDS: BACTRIM IV SCH ×3 (06:15→21:52)
[2020-03-09] MEDS: FAMOTIDINE/PF 20 MG/2 ML VIAL IV SCH ×2 (08:57→21:52)
[2020-03-09] MEDS: ZINC SULFATE 220 CAPSULE PO SCH (08:58)
[2020-03-09] MEDS: DEXAMETHASONE SOD PHOSPHATE 4 MG/ML 1ML VIAL IVP SCH (08:58)
[2020-03-09] MEDS: ASCORBIC ACID 500 MG TAB PO SCH ×2 (09:02→21:52)
[2020-03-09] MEDS: ENOXAPARIN SODIUM 40 MG/0.4 ML SYRINGE SQ SCH ×2 (09:02→21:52)
[2020-03-09] MEDS: DOCUSATE NA 100MG/10ML UDCUP NG SCH ×2 (09:02→21:52)
[2020-03-09] MEDS: POTASSIUM CHLORIDE 20 MEQ in DEXTROSE 5%-WATER 1,000 ML IV SCH (09:03)
[2020-03-09] MEDS: PROPOFOL 1000 MG/100 ML 100 ML IV PRN ×3 (10:58→21:53)
[2020-03-09] MEDS: FENTANYL 2500MCG+NS 250ML 250 ML IV SCH ×2 (10:59→21:53)
[2020-03-09 12:14] LABS: ABG BASE EXCESS 3.5 mmol/L (-2.0-3.0); ABG HCO3 29.1 mmol/L (21.0-28.0); ABG OXYGEN SATURATION 90.5 % (95.0-99.0); ABG PCO2 49 mmHg (32-45)
[2020-03-10] VITALS (96 sets, daily range): BP systolic 78–198; BP diastolic 47–108
[2020-03-10] MEDS: POTASSIUM CHLORIDE 20 MEQ in DEXTROSE 5%-WATER 1,000 ML IV SCH ×3 (02:58→21:15)
[2020-03-10] MEDS: PROPOFOL 1000 MG/100 ML 100 ML IV PRN ×4 (02:59→17:57)
[2020-03-10 04:26] LABS: BASOPHILS % (AUTO) 0.8 % (0.0-5.0); EOSINOPHILS % (AUTO) 2.9 % (0.0-8.0); HEMATOCRIT 27.3 % (36-48); MEAN CORPUSCULAR HEMOGLOBIN 30.2 pg (27.0-33.0); MEAN CORPUSCULAR HGB CONC 32.2 g/dL (32.0-36.0); MEAN CORPUSCULAR VOLUME 93.8 fL (79-99); NEUTROPHILS % (AUTO) 54.7 % (40.0-77.0); NUCLEATED RED BLOOD CELLS 0.9 % (0.0-0.19); PLATELET COUNT (AUTO) 355 K/uL (130-400); RED BLOOD CELL COUNT(AUTO) 2.91 MIL/uL (4.00-5.50)
[2020-03-10 04:40] LABS: BILIRUBIN,TOTAL 0.2 mg/dL (0.2-1.0); CREATININE 0.3 mg/dL (0.5-1.5); CRP QUANTITATIVE 119.7 mg/L (0.00-9.0); TOTAL PROTEIN, SERUM 4.5 g/dL (6.0-8.3)
[2020-03-10] MEDS: SODIUM CHLORIDE 0.9% IV SCH (06:53)
[2020-03-10] MEDS: BACTRIM IV SCH ×3 (06:53→21:14)
[2020-03-10] MEDS: ASCORBIC ACID 500 MG TAB PO SCH ×2 (08:18→21:14)
[2020-03-10] MEDS: FAMOTIDINE/PF 20 MG/2 ML VIAL IV SCH ×2 (08:18→21:13)
[2020-03-10] MEDS: DEXAMETHASONE SOD PHOSPHATE 4 MG/ML 1ML VIAL IVP SCH (08:18)
[2020-03-10] MEDS: ZINC SULFATE 220 CAPSULE PO SCH (08:18)
[2020-03-10] MEDS: ENOXAPARIN SODIUM 40 MG/0.4 ML SYRINGE SQ SCH ×2 (08:18→21:14)
[2020-03-10] MEDS: DOCUSATE NA 100MG/10ML UDCUP NG SCH ×2 (08:18→21:13)
[2020-03-10] MEDS: FENTANYL 2500MCG+NS 250ML 250 ML IV SCH (08:21)
[2020-03-10] MEDS ORDERED: DEXTROSE 5% IV SCH (09:00)
[2020-03-10] MEDS ORDERED: WATER IV SCH (09:00)
[2020-03-10] MEDS ORDERED: MIDAZOLAM HCL IV SCH (09:00)
[2020-03-10] MEDS ORDERED: COMPOUND NARC IV MISC 1 EACH IVSOLN MISC PRN (09:30)
[2020-03-10] MEDS: DEXTROSE 5% IV SCH ×3 (14:32→21:14)
[2020-03-10] MEDS: WATER IV SCH ×3 (14:32→21:14)
[2020-03-10 15:01] LABS: ABG BASE EXCESS 1.2 mmol/L (-2.0-3.0); ABG HCO3 27.6 mmol/L (21.0-28.0); ABG OXYGEN SATURATION 94.2 % (95.0-99.0); ABG PCO2 51 mmHg (32-45)
[2020-03-10] MEDS ORDERED: FENTANYL 2500MCG+NS 250ML 250 ML IV ONE (17:52)
[2020-03-10] MEDS: MIDAZOLAM HCL IV SCH (21:14)
[2020-03-10] MEDS: METOPROLOL TARTRATE 1 MG/ML 5ML VIAL IV PRN (21:15)
[2020-03-10] MEDS: NOREPINEPHRINE BITARTRATE 32 MG in SODIUM CHLORIDE 0.9% 250 ML IV SCH (21:15)
[2020-03-11] VITALS (91 sets, daily range): BP systolic 90–147; BP diastolic 36–108
[2020-03-11] MEDS: WATER IV SCH ×4 (01:19→21:49)
[2020-03-11] MEDS: DEXTROSE 5% IV SCH ×4 (01:19→21:49)
[2020-03-11] MEDS: MIDAZOLAM HCL IV SCH (01:19)
[2020-03-11] MEDS: FENTANYL CITRATE PF 0.05 MG/ML 2,500 MCG in DEXTROSE 5%-WATER 250 ML IVPB SCH (01:19)
[2020-03-11] MEDS: PROPOFOL 1000 MG/100 ML 100 ML IV PRN ×2 (01:20→07:37)
[2020-03-11] MEDS: METOPROLOL TARTRATE 1 MG/ML 5ML VIAL IV PRN (04:49)
[2020-03-11 05:00] LABS: BASOPHILS % (AUTO) 0.3 % (0.0-5.0); EOSINOPHILS % (AUTO) 1.3 % (0.0-8.0); LYMPHOCYTES % (AUTO) 24.8 % (21.0-51.0); MEAN CORPUSCULAR VOLUME 96.8 fL (79-99); NEUTROPHILS % (AUTO) 51.5 % (40.0-77.0); NUCLEATED RED BLOOD CELLS 0.4 % (0.0-0.19); PLATELET COUNT (AUTO) 427 K/uL (130-400); RED CELL DISTRIBUTION WIDTH 18.1 % (11.0-15.5); WHITE BLOOD COUNT (AUTO) 11.1 K/uL (4.8-10.8)
[2020-03-11] MEDS: BACTRIM IV SCH ×3 (05:14→21:49)
[2020-03-11 05:33] LABS: ALBUMIN 1.1 g/dL (3.5-5.0); BILIRUBIN,TOTAL 0.2 mg/dL (0.2-1.0); CREATININE 0.3 mg/dL (0.5-1.5); CRP QUANTITATIVE 99.3 mg/L (0.00-9.0); POTASSIUM 4.2 mmol/L (3.5-5.1); TOTAL PROTEIN, SERUM 4.8 g/dL (6.0-8.3)
[2020-03-11] MEDS ORDERED: FENTANYL 2500MCG+NS 250ML 250 ML IV ONE ×2 (07:36→16:24)
[2020-03-11] MEDS: MIDAZOLAM 100MG-0.9% NS 100ML 100 ML IV SCH (07:37)
[2020-03-11] MEDS: FENTANYL 2500MCG+NS 250ML 250 ML IV SCH (07:38)
[2020-03-11] MEDS: ENOXAPARIN SODIUM 40 MG/0.4 ML SYRINGE SQ SCH ×2 (07:39→20:57)
[2020-03-11] MEDS: DEXAMETHASONE SOD PHOSPHATE 4 MG/ML 1ML VIAL IVP SCH (07:39)
[2020-03-11] MEDS: ZINC SULFATE 220 CAPSULE PO SCH (07:39)
[2020-03-11] MEDS: DOCUSATE NA 100MG/10ML UDCUP NG SCH ×2 (07:39→20:57)
[2020-03-11] MEDS: FAMOTIDINE/PF 20 MG/2 ML VIAL IV SCH ×2 (07:39→20:57)
[2020-03-11] MEDS: ASCORBIC ACID 500 MG TAB PO SCH ×2 (07:39→20:57)
--- NOTE | 2020-03-11 16:29 | NUR ---
Pharmacy called since 1400 for bactrim drip. RN still waiting for medication.
[2020-03-11] MEDS: POTASSIUM CHLORIDE 20 MEQ in DEXTROSE 5%-WATER 1,000 ML IV SCH (17:13)
[2020-03-12] VITALS (88 sets, daily range): BP systolic 90–145; BP diastolic 47–86
[2020-03-12] MEDS: FENTANYL CITRATE PF 0.05 MG/ML 2,500 MCG in DEXTROSE 5%-WATER 250 ML IVPB SCH ×2
[2020-03-12] MEDS: METOPROLOL TARTRATE 1 MG/ML 5ML VIAL IV PRN (00:07)
[2020-03-12 04:32] LABS: BASOPHILS % (AUTO) 0.5 % (0.0-5.0); EOSINOPHILS % (AUTO) 1.3 % (0.0-8.0); HEMATOCRIT 25.8 % (36-48); LYMPHOCYTES % (AUTO) 18.8 % (21.0-51.0); MEAN CORPUSCULAR HEMOGLOBIN 30.1 pg (27.0-33.0); MEAN CORPUSCULAR HGB CONC 31.4 g/dL (32.0-36.0); MEAN CORPUSCULAR VOLUME 95.9 fL (79-99); MONOCYTES % (AUTO) 4.9 % (3.0-13.0); NEUTROPHILS % (AUTO) 57.2 % (40.0-77.0); NUCLEATED RED BLOOD CELLS 0.5 % (0.0-0.19); PLATELET COUNT (AUTO) 403 K/uL (130-400); RED BLOOD CELL COUNT(AUTO) 2.69 MIL/uL (4.00-5.50); WHITE BLOOD COUNT (AUTO) 10.9 K/uL (4.8-10.8)
[2020-03-12 04:48] LABS: BILIRUBIN,TOTAL 0.1 mg/dL (0.2-1.0); CREATININE 0.3 mg/dL (0.5-1.5); CRP QUANTITATIVE 87.9 mg/L (0.00-9.0); POTASSIUM 4.2 mmol/L (3.5-5.1); TOTAL PROTEIN, SERUM 4.5 g/dL (6.0-8.3)
[2020-03-12] MEDS: WATER IV SCH ×4 (06:50→22:07)
[2020-03-12] MEDS: MIDAZOLAM HCL IV SCH (06:50)
[2020-03-12] MEDS: DEXTROSE 5% IV SCH ×4 (06:50→22:07)
[2020-03-12] MEDS: DOCUSATE NA 100MG/10ML UDCUP NG SCH ×2 (08:50→20:19)
[2020-03-12] MEDS: FAMOTIDINE/PF 20 MG/2 ML VIAL IV SCH ×2 (08:50→20:19)
[2020-03-12] MEDS: ASCORBIC ACID 500 MG TAB PO SCH ×2 (08:50→20:19)
[2020-03-12] MEDS: BACTRIM IV SCH ×3 (08:50→22:07)
[2020-03-12] MEDS: ZINC SULFATE 220 CAPSULE PO SCH (08:50)
[2020-03-12] MEDS: ENOXAPARIN SODIUM 40 MG/0.4 ML SYRINGE SQ SCH ×2 (08:51→20:19)
[2020-03-12] MEDS: DEXAMETHASONE SOD PHOSPHATE 4 MG/ML 1ML VIAL IVP SCH (08:51)
[2020-03-12] MEDS: POTASSIUM CHLORIDE 20 MEQ in DEXTROSE 5%-WATER 1,000 ML IV SCH (11:43)
--- NOTE | 2020-03-12 14:45 | NUR ---
pt placed in supine position, tolerating well at this time.
--- NOTE | 2020-03-12 15:47 | NUR ---
Spoke to pt's daughter Felecia regarding plan of care and options moving forward. Felecia made aware of options for trach/PEG/LTAC. Quality of life and pt's previous wishes to not be intubated discussed. Felecia will speak to father and brother and make decision.
[2020-03-12] MEDS ORDERED: FENTANYL 2500MCG+NS 250ML 250 ML IV ONE (16:29)
[2020-03-12] MEDS ORDERED: PHARMACY COMMUNICATION MISC STA (20:28)
[2020-03-13] VITALS (68 sets, daily range): BP systolic 84–138; BP diastolic 42–76
[2020-03-13] MEDS: METOPROLOL TARTRATE 1 MG/ML 5ML VIAL IV PRN (00:01)
[2020-03-13 04:16] LABS: BASOPHILS % (AUTO) 0.9 % (0.0-5.0); EOSINOPHILS % (AUTO) 2.2 % (0.0-8.0); HEMATOCRIT 25.6 % (36-48); MEAN CORPUSCULAR HEMOGLOBIN 30.2 pg (27.0-33.0); MEAN CORPUSCULAR HGB CONC 31.3 g/dL (32.0-36.0); MEAN CORPUSCULAR VOLUME 96.6 fL (79-99); MONOCYTES % (AUTO) 4.4 % (3.0-13.0); NEUTROPHILS % (AUTO) 56.1 % (40.0-77.0); NUCLEATED RED BLOOD CELLS 0.2 % (0.0-0.19); PLATELET COUNT (AUTO) 448 K/uL (130-400); RED BLOOD CELL COUNT(AUTO) 2.65 MIL/uL (4.00-5.50); RED CELL DISTRIBUTION WIDTH 18.1 % (11.0-15.5); WHITE BLOOD COUNT (AUTO) 11.6 K/uL (4.8-10.8)
[2020-03-13 05:01] LABS: BILIRUBIN,TOTAL 0.2 mg/dL (0.2-1.0); CREATININE 0.2 mg/dL (0.5-1.5); CRP QUANTITATIVE 84.8 mg/L (0.00-9.0); POTASSIUM 4.3 mmol/L (3.5-5.1); TOTAL PROTEIN, SERUM 4.4 g/dL (6.0-8.3)
--- NOTE | 2020-03-13 08:00 | NUR ---
Pharmacy called for bactrim, will bring med when it's ready.
[2020-03-13] MEDS: ENOXAPARIN SODIUM 40 MG/0.4 ML SYRINGE SQ SCH ×2 (08:31→22:20)
[2020-03-13] MEDS: PROPOFOL 1000 MG/100 ML 100 ML IV PRN ×2 (08:31→17:09)
[2020-03-13] MEDS: FENTANYL CITRATE PF 0.05 MG/ML 2,500 MCG in DEXTROSE 5%-WATER 250 ML IVPB SCH ×3 (08:31)
[2020-03-13] MEDS: MIDAZOLAM HCL IV SCH (08:32)
[2020-03-13] MEDS: DEXTROSE 5% IV SCH ×2 (08:32→10:57)
[2020-03-13] MEDS: WATER IV SCH ×2 (08:32→10:57)
[2020-03-13] MEDS: DOCUSATE NA 100MG/10ML UDCUP NG SCH ×2 (08:33→21:00)
[2020-03-13] MEDS: ZINC SULFATE 220 CAPSULE PO SCH (08:33)
[2020-03-13] MEDS: DEXAMETHASONE SOD PHOSPHATE 4 MG/ML 1ML VIAL IVP SCH (08:33)
[2020-03-13] MEDS: ASCORBIC ACID 500 MG TAB PO SCH ×2 (08:33→22:20)
[2020-03-13] MEDS: POTASSIUM CHLORIDE 20 MEQ in DEXTROSE 5%-WATER 1,000 ML IV SCH ×2 (08:35→17:30)
--- NOTE | 2020-03-13 09:30 | NUR ---
Pharmacy called for bactrim, med is still not ready.
[2020-03-13] MEDS: FAMOTIDINE/PF 20 MG/2 ML VIAL IV SCH ×2 (09:49→22:19)
--- NOTE | 2020-03-13 10:55 | NUR ---
Bactrim received at this time. Will reschedule 2pm dose as appropriate.
[2020-03-13] MEDS: BACTRIM IV SCH ×2 (10:57→22:21)
[2020-03-13] MEDS: MIDODRINE HCL 5 MG TABLET PO SCH ×2 (14:28→22:19)
--- NOTE | 2020-03-13 21:25 | NUR ---
Lisa w/SWATI Caceres w/hospitalist team regarding HR in 120s. Pt afebrile at 98.6 axillary. Versed turned on to 2MG/HR to no effect on HR. Pt's SBP on Eugenia currently 170s. SWATI Caceres request versed be increased and a 250-500 ML NS bolus. Addendum: 03/13/20 at 2129 by PALAK SMITH RN RN Disregard. Wrong patient chart.
[2020-03-13] MEDS: SODIUM CHLORIDE 0.9% IV SCH (22:21)
[2020-03-14] VITALS (50 sets, daily range): BP systolic 87–156; BP diastolic 47–85
[2020-03-14] MEDS ORDERED: FENTANYL 2500MCG+NS 250ML 250 ML IV ONE ×3 (01:08→13:25)
[2020-03-14] MEDS: BACTRIM IV SCH ×3 (04:46→21:46)
[2020-03-14] MEDS: SODIUM CHLORIDE 0.9% IV SCH ×3 (04:46→21:46)
[2020-03-14] MEDS: POTASSIUM CHLORIDE 20 MEQ in DEXTROSE 5%-WATER 1,000 ML IV SCH (05:44)
[2020-03-14 06:52] LABS: BASOPHILS % (AUTO) 0.7 % (0.0-5.0); EOSINOPHILS % (AUTO) 2.1 % (0.0-8.0); HEMATOCRIT 24.1 % (36-48); LYMPHOCYTES % (AUTO) 25.1 % (21.0-51.0); MEAN CORPUSCULAR HGB CONC 32.4 g/dL (32.0-36.0); MEAN CORPUSCULAR VOLUME 95.6 fL (79-99); MONOCYTES % (AUTO) 3.8 % (3.0-13.0); NUCLEATED RED BLOOD CELLS 0.6 % (0.0-0.19); PLATELET COUNT (AUTO) 472 K/uL (130-400); RED BLOOD CELL COUNT(AUTO) 2.52 MIL/uL (4.00-5.50); RED CELL DISTRIBUTION WIDTH 18.2 % (11.0-15.5)
[2020-03-14 07:30] LABS: ALBUMIN 0.9 g/dL (3.5-5.0); BILIRUBIN,TOTAL 0.2 mg/dL (0.2-1.0); CREATININE 0.3 mg/dL (0.5-1.5); CRP QUANTITATIVE 107.8 mg/L (0.00-9.0); POTASSIUM 4.2 mmol/L (3.5-5.1); TOTAL PROTEIN, SERUM 4.3 g/dL (6.0-8.3)
[2020-03-14] MEDS: ENOXAPARIN SODIUM 40 MG/0.4 ML SYRINGE SQ SCH ×2 (08:54→21:05)
[2020-03-14] MEDS: MIDODRINE HCL 5 MG TABLET PO SCH ×3 (08:55→21:05)
[2020-03-14] MEDS: ASCORBIC ACID 500 MG TAB PO SCH ×2 (08:55→21:05)
[2020-03-14] MEDS: FAMOTIDINE/PF 20 MG/2 ML VIAL IV SCH ×2 (08:55→21:05)
[2020-03-14] MEDS: DOCUSATE NA 100MG/10ML UDCUP NG SCH ×2 (08:55→21:05)
[2020-03-14] MEDS: ZINC SULFATE 220 CAPSULE PO SCH (08:55)
[2020-03-14] MEDS ORDERED: MIDODRINE HCL 5 MG TABLET NG SCH (14:00)
[2020-03-14 16:25] LABS: ABG HCO3 28.8 mmol/L (21.0-28.0); ABG OXYGEN SATURATION 97.3 % (95.0-99.0); ABG PCO2 53 mmHg (32-45)
[2020-03-14] MEDS: PROPOFOL 1000 MG/100 ML 100 ML IV PRN (21:47)
[2020-03-14] MEDS: METOPROLOL TARTRATE 1 MG/ML 5ML VIAL IV PRN (21:49)
[2020-03-15] VITALS (27 sets, daily range): BP systolic 98–149; BP diastolic 50–84
[2020-03-15] MEDS ORDERED: FENTANYL 2500MCG+NS 250ML 250 ML IV ONE ×3 (02:48→17:50)
[2020-03-15] MEDS: PROPOFOL 1000 MG/100 ML 100 ML IV PRN ×2 (02:51→10:11)
[2020-03-15 04:08] LABS: BASOPHILS % (AUTO) 0.5 % (0.0-5.0); EOSINOPHILS % (AUTO) 2.2 % (0.0-8.0); HEMATOCRIT 24.6 % (36-48); MEAN CORPUSCULAR HGB CONC 32.1 g/dL (32.0-36.0); MEAN CORPUSCULAR VOLUME 96.5 fL (79-99); MONOCYTES % (AUTO) 1.7 % (3.0-13.0); NEUTROPHILS % (AUTO) 67.4 % (40.0-77.0); NUCLEATED RED BLOOD CELLS 0.2 % (0.0-0.19); PLATELET COUNT (AUTO) 509 K/uL (130-400); RED BLOOD CELL COUNT(AUTO) 2.55 MIL/uL (4.00-5.50); RED CELL DISTRIBUTION WIDTH 18.3 % (11.0-15.5); WHITE BLOOD COUNT (AUTO) 14.8 K/uL (4.8-10.8)
[2020-03-15 04:56] LABS: ALBUMIN 0.9 g/dL (3.5-5.0); BILIRUBIN,TOTAL 0.2 mg/dL (0.2-1.0); CREATININE 0.2 mg/dL (0.5-1.5); POTASSIUM 4.2 mmol/L (3.5-5.1); TOTAL PROTEIN, SERUM 4.3 g/dL (6.0-8.3)
[2020-03-15 05:16] LABS: CRP QUANTITATIVE 178.7 mg/L (0.00-9.0)
[2020-03-15] MEDS: SODIUM CHLORIDE 0.9% IV SCH ×3 (06:47→21:22)
[2020-03-15] MEDS: BACTRIM IV SCH ×3 (06:47→21:22)
[2020-03-15] MEDS: ZINC SULFATE 220 CAPSULE PO SCH (10:09)
[2020-03-15] MEDS: DOCUSATE NA 100MG/10ML UDCUP NG SCH ×2 (10:09→21:21)
[2020-03-15] MEDS: FAMOTIDINE/PF 20 MG/2 ML VIAL IV SCH ×2 (10:10→22:24)
[2020-03-15] MEDS: ASCORBIC ACID 500 MG TAB PO SCH ×2 (10:10→21:22)
[2020-03-15] MEDS: MIDODRINE HCL 5 MG TABLET PO SCH ×3 (10:10→21:23)
[2020-03-15] MEDS: ENOXAPARIN SODIUM 40 MG/0.4 ML SYRINGE SQ SCH ×2 (10:11→21:23)
[2020-03-15 17:16] LABS: ABG BASE EXCESS 0.4 mmol/L (-2.0-3.0); ABG OXYGEN SATURATION 97.8 % (95.0-99.0); ABG PCO2 51 mmHg (32-45)
[2020-03-15] MEDS ORDERED: METHYLPREDNISOLONE SOD SUCC 125MG/2ML VIAL IVP SCH (18:00)
[2020-03-15] MEDS ORDERED: SODIUM CHLORIDE 0.9% 100 ML IV ONE (22:20)
[2020-03-16] VITALS (56 sets, daily range): BP systolic 98–133; BP diastolic 46–79
[2020-03-16] MEDS ORDERED: FENTANYL 2500MCG+NS 250ML 250 ML IV ONE ×3 (01:27→16:50)
[2020-03-16] MEDS: PROPOFOL 1000 MG/100 ML 100 ML IV PRN ×4 (01:32→13:04)
[2020-03-16 03:44] LABS: ABG HCO3 29.2 mmol/L (21.0-28.0); ABG OXYGEN SATURATION 94.5 % (95.0-99.0); ABG PCO2 53 mmHg (32-45)
[2020-03-16 04:23] LABS: BASOPHILS % (AUTO) 0.5 % (0.0-5.0); EOSINOPHILS % (AUTO) 2.4 % (0.0-8.0); HEMATOCRIT 24.5 % (36-48); LYMPHOCYTES % (AUTO) 23.8 % (21.0-51.0); MEAN CORPUSCULAR HEMOGLOBIN 30.1 pg (27.0-33.0); MEAN CORPUSCULAR HGB CONC 31.4 g/dL (32.0-36.0); MEAN CORPUSCULAR VOLUME 95.7 fL (79-99); MONOCYTES % (AUTO) 3.4 % (3.0-13.0); NEUTROPHILS % (AUTO) 64.8 % (40.0-77.0); NUCLEATED RED BLOOD CELLS 0.2 % (0.0-0.19); PLATELET COUNT (AUTO) 437 K/uL (130-400); RED BLOOD CELL COUNT(AUTO) 2.56 MIL/uL (4.00-5.50); WHITE BLOOD COUNT (AUTO) 10.2 K/uL (4.8-10.8)
[2020-03-16 04:41] LABS: ALBUMIN 0.9 g/dL (3.5-5.0); BILIRUBIN,TOTAL 0.2 mg/dL (0.2-1.0); CREATININE 0.2 mg/dL (0.5-1.5); POTASSIUM 3.8 mmol/L (3.5-5.1); TOTAL PROTEIN, SERUM 4.4 g/dL (6.0-8.3)
[2020-03-16 04:54] LABS: CRP QUANTITATIVE 270.1 mg/L (0.00-9.0)
[2020-03-16] MEDS: BACTRIM IV SCH ×3 (05:22→22:58)
[2020-03-16] MEDS: SODIUM CHLORIDE 0.9% IV SCH ×3 (05:22→22:58)
[2020-03-16] MEDS: ASCORBIC ACID 500 MG TAB PO SCH ×2 (08:28→22:58)
[2020-03-16] MEDS: DOCUSATE NA 100MG/10ML UDCUP NG SCH ×2 (08:28→22:58)
[2020-03-16] MEDS: MIDODRINE HCL 5 MG TABLET PO SCH ×3 (08:29→22:58)
[2020-03-16] MEDS: ZINC SULFATE 220 CAPSULE PO SCH (08:29)
[2020-03-16] MEDS: ENOXAPARIN SODIUM 40 MG/0.4 ML SYRINGE SQ SCH ×2 (08:29→22:58)
[2020-03-16] MEDS ORDERED: PHYTONADIONE 10 MG/1 ML AMP SQ SCH (10:00)
[2020-03-16] MEDS: FAMOTIDINE/PF 20 MG/2 ML VIAL IV SCH ×2 (12:12→22:57)
[2020-03-16] MEDS ORDERED: PROPOFOL 1000 MG/100 ML 100 ML IV ONE ×3 (16:50→23:53)
[2020-03-17] VITALS (70 sets, daily range): BP systolic 86–183; BP diastolic 42–96
[2020-03-17] MEDS ORDERED: PROPOFOL 1000 MG/100 ML 100 ML IV ONE (03:53)
[2020-03-17 04:38] LABS: MAGNESIUM 1.7 mg/dL (1.80-2.40); PHOSPHORUS 4.8 mg/dL (2.5-4.9)
[2020-03-17] MEDS: SODIUM CHLORIDE 0.9% IV SCH ×3 (06:23→22:00)
[2020-03-17] MEDS: BACTRIM IV SCH ×3 (06:23→22:00)
[2020-03-17] MEDS: DOCUSATE NA 100MG/10ML UDCUP NG SCH ×2 (09:57→21:00)
[2020-03-17] MEDS: MIDODRINE HCL 5 MG TABLET PO SCH ×3 (09:57→21:00)
[2020-03-17] MEDS: ENOXAPARIN SODIUM 40 MG/0.4 ML SYRINGE SQ SCH ×2 (09:57→21:00)
[2020-03-17] MEDS: ASCORBIC ACID 500 MG TAB PO SCH ×2 (09:57→21:00)
[2020-03-17] MEDS: FAMOTIDINE/PF 20 MG/2 ML VIAL IV SCH ×2 (09:58→21:00)
[2020-03-17] MEDS: ZINC SULFATE 220 CAPSULE PO SCH (09:58)
[2020-03-17] MEDS ORDERED: FENTANYL 2500MCG+NS 250ML 250 ML IV ONE ×3 (10:29→20:56)
[2020-03-17] MEDS: MIDAZOLAM HCL IV SCH (10:47)
[2020-03-17] MEDS: WATER IV SCH (10:47)
[2020-03-17] MEDS: DEXTROSE 5% IV SCH (10:47)
[2020-03-17] MEDS: NOREPINEPHRINE BITARTRATE 32 MG in SODIUM CHLORIDE 0.9% 250 ML IV SCH (10:49)
[2020-03-17] MEDS: PROPOFOL 1000 MG/100 ML IV PRN (14:57)
[2020-03-18] VITALS (76 sets, daily range): BP systolic 58–144; BP diastolic 36–79
[2020-03-18] MEDS ORDERED: FENTANYL CITRATE PF 50 MCG/1 ML 2ML VIAL ONE (04:09)
[2020-03-18] MEDS ORDERED: FENTANYL 2500MCG+NS 250ML 250 ML IV ONE ×2 (04:19→23:22)
[2020-03-18 04:37] LABS: BASOPHILS % (AUTO) 0.6 % (0.0-5.0); EOSINOPHILS % (AUTO) 2.3 % (0.0-8.0); HEMATOCRIT 23.9 % (36-48); LYMPHOCYTES % (AUTO) 20.3 % (21.0-51.0); MEAN CORPUSCULAR VOLUME 96.8 fL (79-99); MONOCYTES % (AUTO) 4.9 % (3.0-13.0); NEUTROPHILS % (AUTO) 67.5 % (40.0-77.0); PLATELET COUNT (AUTO) 462 K/uL (130-400); RED BLOOD CELL COUNT(AUTO) 2.47 MIL/uL (4.00-5.50); RED CELL DISTRIBUTION WIDTH 18.1 % (11.0-15.5)
[2020-03-18 04:52] LABS: ALBUMIN 0.8 g/dL (3.5-5.0); BILIRUBIN,TOTAL 0.1 mg/dL (0.2-1.0); CREATININE 0.8 mg/dL (0.5-1.5); POTASSIUM 3.2 mmol/L (3.5-5.1); TOTAL PROTEIN, SERUM 4.3 g/dL (6.0-8.3)
[2020-03-18 05:19] LABS: CRP QUANTITATIVE 189.3 mg/L (0.00-9.0)
[2020-03-18] MEDS: BACTRIM IV SCH ×3 (06:32→22:00)
[2020-03-18] MEDS: SODIUM CHLORIDE 0.9% IV SCH ×3 (06:32→22:00)
[2020-03-18] MEDS ORDERED: LIDOCAINE HCL-MPF 1% 2ML VIAL IV PRN (07:30)
[2020-03-18 07:56] LABS: ABG BASE EXCESS 3.1 mmol/L (-2.0-3.0); ABG HCO3 30.7 mmol/L (21.0-28.0); ABG OXYGEN SATURATION 97.9 % (95.0-99.0); ABG PCO2 60 mmHg (32-45)
[2020-03-18] MEDS: POTASSIUM CHLORIDE 20MEQ/100ML 100 ML IV PRN (08:00)
[2020-03-18] MEDS: ASCORBIC ACID 500 MG TAB PO SCH ×2 (08:03→21:00)
[2020-03-18] MEDS: MIDODRINE HCL 5 MG TABLET PO SCH ×3 (08:03→21:00)
[2020-03-18] MEDS: FAMOTIDINE/PF 20 MG/2 ML VIAL IV SCH ×2 (08:03→21:00)
[2020-03-18] MEDS: DOCUSATE NA 100MG/10ML UDCUP NG SCH ×2 (08:03→21:00)
[2020-03-18] MEDS: ZINC SULFATE 220 CAPSULE PO SCH (08:03)
[2020-03-18] MEDS: ENOXAPARIN SODIUM 40 MG/0.4 ML SYRINGE SQ SCH ×2 (08:39→21:00)
[2020-03-18] MEDS ORDERED: PHARMACY COMMUNICATION MISC SCH (09:15)
[2020-03-18] MEDS: MEROPENEM 1 GM VIAL IVP SCH ×2 (10:16→16:17)
[2020-03-18] MEDS ORDERED: [UNRECOGNIZED DRUG - REMARK] MISC SCH (11:15)
[2020-03-18] MEDS: PROPOFOL 1000 MG/100 ML IV PRN ×2 (12:29→17:10)
[2020-03-18] MEDS: DEXMEDETOMIDINE HCL 400 MCG in SODIUM CHLORIDE 0.9% 100 ML IV SCH (13:45)
[2020-03-18] MEDS: FENTANYL CITRATE PF 0.05 MG/ML 2,500 MCG in DEXTROSE 5%-WATER 250 ML IVPB SCH (15:14)
[2020-03-18] MEDS: LACTULOSE 20 GM/30 ML UDCUP PO PRN (15:25)
[2020-03-18] MEDS: PHARMACY COMMUNICATION MISC SCH ×2 (19:40→19:41)
[2020-03-18 22:37] LABS: HEMATOCRIT 25.1 % (36-48)
[2020-03-19] VITALS (84 sets, daily range): BP systolic 50–187; BP diastolic 28–97
[2020-03-19] MEDS: MEROPENEM 1 GM VIAL IVP SCH ×4 (02:00→16:50)
[2020-03-19 05:02] LABS: BASOPHILS % (AUTO) 0.9 % (0.0-5.0); EOSINOPHILS % (AUTO) 2.2 % (0.0-8.0); HEMATOCRIT 24.9 % (36-48); MEAN CORPUSCULAR HEMOGLOBIN 29.7 pg (27.0-33.0); MEAN CORPUSCULAR HGB CONC 30.5 g/dL (32.0-36.0); MEAN CORPUSCULAR VOLUME 97.3 fL (79-99); MONOCYTES % (AUTO) 6.7 % (3.0-13.0); NEUTROPHILS % (AUTO) 57.1 % (40.0-77.0); NUCLEATED RED BLOOD CELLS 0.4 % (0.0-0.19); PLATELET COUNT (AUTO) 462 K/uL (130-400); RED BLOOD CELL COUNT(AUTO) 2.56 MIL/uL (4.00-5.50); RED CELL DISTRIBUTION WIDTH 18.5 % (11.0-15.5); WHITE BLOOD COUNT (AUTO) 9.6 K/uL (4.8-10.8)
[2020-03-19 05:24] LABS: ALBUMIN 0.8 g/dL (3.5-5.0); BILIRUBIN,TOTAL 0.1 mg/dL (0.2-1.0); CREATININE 0.1 mg/dL (0.5-1.5); POTASSIUM 3.7 mmol/L (3.5-5.1); TOTAL PROTEIN, SERUM 4.3 g/dL (6.0-8.3)
[2020-03-19 05:54] LABS: CRP QUANTITATIVE 236.5 mg/L (0.00-9.0)
[2020-03-19] MEDS: BACTRIM IV SCH ×3 (06:03→22:00)
[2020-03-19] MEDS: SODIUM CHLORIDE 0.9% IV SCH ×3 (06:03→22:00)
[2020-03-19] MEDS: FAMOTIDINE/PF 20 MG/2 ML VIAL IV SCH ×2 (08:01→21:00)
[2020-03-19] MEDS: DOCUSATE NA 100MG/10ML UDCUP NG SCH ×2 (08:01→21:00)
[2020-03-19] MEDS: ENOXAPARIN SODIUM 40 MG/0.4 ML SYRINGE SQ SCH ×2 (08:01→21:00)
[2020-03-19] MEDS: LACTULOSE 20 GM/30 ML UDCUP PO PRN (08:01)
[2020-03-19] MEDS: FENTANYL CITRATE PF 0.05 MG/ML 2,500 MCG in DEXTROSE 5%-WATER 250 ML IVPB SCH ×2 (08:02→18:14)
[2020-03-19] MEDS: ZINC SULFATE 220 CAPSULE PO SCH (08:02)
[2020-03-19] MEDS: ASCORBIC ACID 500 MG TAB PO SCH ×2 (08:02→21:00)
[2020-03-19] MEDS: MIDODRINE HCL 5 MG TABLET PO SCH ×3 (08:03→21:00)
[2020-03-19] MEDS ORDERED: PHARMACY COMMUNICATION MISC SCH (09:30)
[2020-03-19] MEDS ORDERED: TIGECYCLINE 100 MG in SODIUM CHLORIDE 0.9% 100 ML IV SCH (09:30)
[2020-03-19] MEDS: TIGECYCLINE 50 MG in SODIUM CHLORIDE 0.9% 100 ML IV SCH (21:00)
[2020-03-20] VITALS (53 sets, daily range): BP systolic 72–126; BP diastolic 32–70
[2020-03-20] MEDS: MEROPENEM 1 GM VIAL IVP SCH ×2 (01:30→08:06)
[2020-03-20] MEDS ORDERED: METOCLOPRAMIDE 10 MG/2 ML VIAL ONE (02:54)
[2020-03-20 04:53] LABS: BASOPHILS % (AUTO) 1.1 % (0.0-5.0); EOSINOPHILS % (AUTO) 0.5 % (0.0-8.0); HEMATOCRIT 28.5 % (36-48); LYMPHOCYTES % (AUTO) 27.7 % (21.0-51.0); MEAN CORPUSCULAR HEMOGLOBIN 29.7 pg (27.0-33.0); MEAN CORPUSCULAR HGB CONC 30.5 g/dL (32.0-36.0); MEAN CORPUSCULAR VOLUME 97.3 fL (79-99); MONOCYTES % (AUTO) 7.8 % (3.0-13.0); NEUTROPHILS % (AUTO) 58.1 % (40.0-77.0); NUCLEATED RED BLOOD CELLS 0.9 % (0.0-0.19); PLATELET COUNT (AUTO) 425 K/uL (130-400); RED BLOOD CELL COUNT(AUTO) 2.93 MIL/uL (4.00-5.50); RED CELL DISTRIBUTION WIDTH 18.6 % (11.0-15.5); WHITE BLOOD COUNT (AUTO) 8.6 K/uL (4.8-10.8)
[2020-03-20 05:24] LABS: ALBUMIN 0.7 g/dL (3.5-5.0); BILIRUBIN,TOTAL 0.1 mg/dL (0.2-1.0); CREATININE 0.3 mg/dL (0.5-1.5); POTASSIUM 3.6 mmol/L (3.5-5.1); TOTAL PROTEIN, SERUM 4.3 g/dL (6.0-8.3)
[2020-03-20 05:47] LABS: CRP QUANTITATIVE 232.2 mg/L (0.00-9.0)
[2020-03-20] MEDS: FENTANYL CITRATE PF 0.05 MG/ML 2,500 MCG in DEXTROSE 5%-WATER 250 ML IVPB SCH ×3 (06:59→15:07)
[2020-03-20] MEDS: SODIUM CHLORIDE 0.9% IV SCH ×3 (07:00→22:00)
[2020-03-20] MEDS: BACTRIM IV SCH ×3 (07:00→22:00)
[2020-03-20] MEDS: LACTULOSE 20 GM/30 ML UDCUP PO PRN (08:02)
[2020-03-20] MEDS: DEXMEDETOMIDINE HCL 400 MCG in SODIUM CHLORIDE 0.9% 100 ML IV SCH ×2 (08:02→15:08)
[2020-03-20] MEDS: DOCUSATE NA 100MG/10ML UDCUP NG SCH ×2 (08:02→21:00)
[2020-03-20] MEDS: ENOXAPARIN SODIUM 40 MG/0.4 ML SYRINGE SQ SCH ×2 (08:02→21:00)
[2020-03-20] MEDS: TIGECYCLINE 50 MG in SODIUM CHLORIDE 0.9% 100 ML IV SCH ×2 (08:03→21:00)
[2020-03-20] MEDS: ASCORBIC ACID 500 MG TAB PO SCH ×2 (08:03→21:00)
[2020-03-20] MEDS: ZINC SULFATE 220 CAPSULE PO SCH (08:03)
[2020-03-20] MEDS: FAMOTIDINE/PF 20 MG/2 ML VIAL IV SCH ×2 (08:03→21:00)
[2020-03-20] MEDS: POLYETHYLENE GLYCOL 3350 17 GM POWD.PACK PO SCH (08:06)
[2020-03-20] MEDS: MIDODRINE HCL 5 MG TABLET PO SCH ×3 (08:08→21:00)
--- NOTE | 2020-03-20 09:14 | NUR ---
Entered for Nila VERDE
[2020-03-20] MEDS ORDERED: FENTANYL 2500MCG+NS 250ML 250 ML IV ONE (09:15)
[2020-03-20 11:42] LABS: ABG BASE EXCESS -0.9 mmol/L (-2.0-3.0); ABG HCO3 24.6 mmol/L (21.0-28.0); ABG OXYGEN SATURATION 95.6 % (95.0-99.0); ABG PCO2 44 mmHg (32-45)
--- NOTE | 2020-03-20 16:07 | NUR ---
RD FOLLOW UP Pt tolerating Continuous tube feeding, Vital AF 1.2 @25 mls/hr. Goal rate 45mls/hr. Inadequate nutrition intake >10 days. Diet order never updated. Monitored labs: Na 147, Cr 0.3, Ca 7.2, Alb 0.7. Recommend continue to advance to goal rate as tolerated (45mls/hr), when medically feasible. RD to continue to monitor. Please notify as additional nutrition concerns arise. Thank you.
[2020-03-21] VITALS (66 sets, daily range): BP systolic 66–130; BP diastolic 40–99
[2020-03-21 03:25] LABS: HEMATOCRIT 22.5 % (36-48); MEAN CORPUSCULAR HEMOGLOBIN 30.2 pg (27.0-33.0); MEAN CORPUSCULAR HGB CONC 30.2 g/dL (32.0-36.0); NUCLEATED RED BLOOD CELLS 0.8 % (0.0-0.19); PLATELET COUNT (AUTO) 515 K/uL (130-400); RED BLOOD CELL COUNT(AUTO) 2.25 MIL/uL (4.00-5.50); RED CELL DISTRIBUTION WIDTH 18.9 % (11.0-15.5); WHITE BLOOD COUNT (AUTO) 15.4 K/uL (4.8-10.8)
[2020-03-21 03:41] LABS: ALBUMIN 0.8 g/dL (3.5-5.0); BILIRUBIN,TOTAL 0.1 mg/dL (0.2-1.0); CREATININE 0.4 mg/dL (0.5-1.5); MAGNESIUM 1.8 mg/dL (1.80-2.40); POTASSIUM 4.3 mmol/L (3.5-5.1); TOTAL PROTEIN, SERUM 4.4 g/dL (6.0-8.3)
[2020-03-21] MEDS ORDERED: AMIODARONE HCL 50 MG/ML 3 ML VIAL ONE (03:54)
[2020-03-21] MEDS ORDERED: AMIODARONE HCL 150 MG in DEXTROSE 5%-WATER 100 ML IV SCH (04:00)
[2020-03-21] MEDS ORDERED: AMIODARONE HCL 900 MG in DEXTROSE 5%-WATER 500 ML IV SCH (04:00)
[2020-03-21 04:02] LABS: BAND NEUTROPHILS % (MANUAL) 12 % (0-2); LYMPHOCYTES % (MANUAL) 14 % (22-44); MAN.DIFF COMMENT-IMPRESSION MANUAL DIFFERENTIAL; MONOCYTES % (MANUAL) 7 % (2-9); PLATELET MORPHOLOGY COMMENT SLIGHT INCREASED; SEGMENTED NEUTROPHILS % 67 % (40-70)
--- NOTE | 2020-03-21 06:26 | NUR ---
MD BLACKWELL FOR CRITICAL H&H
[2020-03-21] MEDS: BACTRIM IV SCH ×2 (07:59→15:58)
[2020-03-21] MEDS: SODIUM CHLORIDE 0.9% IV SCH ×2 (07:59→15:58)
[2020-03-21] MEDS: MIDODRINE HCL 5 MG TABLET PO SCH ×2 (08:04→14:00)
[2020-03-21] MEDS: FAMOTIDINE/PF 20 MG/2 ML VIAL IV SCH (08:04)
[2020-03-21] MEDS: ZINC SULFATE 220 CAPSULE PO SCH (08:04)
[2020-03-21] MEDS: POLYETHYLENE GLYCOL 3350 17 GM POWD.PACK PO SCH (08:04)
[2020-03-21] MEDS: TIGECYCLINE 50 MG in SODIUM CHLORIDE 0.9% 100 ML IV SCH (08:04)
[2020-03-21] MEDS: ASCORBIC ACID 500 MG TAB PO SCH (08:05)
[2020-03-21] MEDS: DOCUSATE NA 100MG/10ML UDCUP NG SCH ×2 (08:05→21:00)
[2020-03-21] MEDS: MAGNESIUM 2GM PREMIX 50ML 50 ML IV SCH (09:36)
[2020-03-21] MEDS ORDERED: SODIUM CHLORIDE 0.9% 500ML 500 ML IV ONE (09:38)
[2020-03-21 11:00] LABS: ABG HCO3 14.8 mmol/L (21.0-28.0); ABG OXYGEN SATURATION 93.4 % (95.0-99.0); ABG PCO2 67 mmHg (32-45)
[2020-03-21] MEDS ORDERED: SODIUM BICARB 50MEQ 50ML VIAL ONE (11:09)
[2020-03-21] MEDS ORDERED: CALCIUM GLUCONATE 1 GM/10 ML VIAL IV SCH ×2 (12:00→14:45)
[2020-03-21] MEDS ORDERED: SODIUM BICARB 50MEQ 50ML VIAL IV SCH (12:15)
[2020-03-21] MEDS ORDERED: CALCIUM GLUCONATE 1 GM in SODIUM CHLORIDE 0.9% 50 ML IV SCH (12:30)
[2020-03-21 13:15] LABS: INR 1.27 (0.85-1.15); PARTIAL THROMBOPLASTIN TIME 54.1 SEC (26.3-35.5); PROTHROMBIN TIME 13.6 SEC (9.6-11.6)
[2020-03-21] MEDS: LACTATED RINGERS 1000ML IV SCH (13:31)
[2020-03-21] MEDS ORDERED: CALCIUM GLUCONATE 1 GM in SODIUM CHLORIDE 0.9% 100 ML IV SCH ×2 (14:15→16:15)
[2020-03-21] MEDS: SODIUM BICARB 8.4% 50ML SYRING 150 MEQ in DEXTROSE 5%-WATER 1,000 ML IV SCH ×2 (14:24→23:45)
[2020-03-21 14:28] LABS: ABG BASE EXCESS -13.5 mmol/L (-2.0-3.0); ABG HCO3 16.3 mmol/L (21.0-28.0); ABG PCO2 56 mmHg (32-45)
[2020-03-21] MEDS ORDERED: TRANEXAMIC ACID 1000MG/10ML IV ONE (15:00)
[2020-03-21] MEDS ORDERED: TRANEXAMIC ACID 1,000 MG in SODIUM CHLORIDE 0.9% 100 ML IV ONE (16:00)
[2020-03-21] MEDS ORDERED: FENTANYL 2500MCG+NS 250ML 250 ML IV ONE (16:15)
[2020-03-21] MEDS ORDERED: SODIUM BICARB 50MEQ 50ML VIAL IVPB SCH (19:45)
[2020-03-22] VITALS (24 sets, daily range): BP systolic 86–126; BP diastolic 52–88
[2020-03-22] MEDS ORDERED: SODIUM BICARB 50MEQ 50ML VIAL ONE (01:44)
[2020-03-22] MEDS: SODIUM CHLORIDE 0.9% IV SCH ×4 (01:48→21:54)
[2020-03-22] MEDS: BACTRIM IV SCH ×4 (01:48→21:54)
[2020-03-22] MEDS: VASOPRESSIN 20 UNITS in SODIUM CHLORIDE 0.9% 100 ML IV SCH (01:53)
[2020-03-22] MEDS: PANTOPRAZOLE 40 MG/VIAL IVP SCH ×3 (01:54→21:00)
[2020-03-22] MEDS: MIDODRINE HCL 5 MG TABLET PO SCH ×4 (01:55→21:53)
[2020-03-22] MEDS: ASCORBIC ACID 500 MG TAB PO SCH ×3 (01:55→21:54)
[2020-03-22] MEDS: TIGECYCLINE 50 MG in SODIUM CHLORIDE 0.9% 100 ML IV SCH ×3 (01:55→21:54)
[2020-03-22 07:40] LABS: BASOPHILS % (AUTO) 0.4 % (0.0-5.0); EOSINOPHILS % (AUTO) 0.1 % (0.0-8.0); LYMPHOCYTES % (AUTO) 25.1 % (21.0-51.0); MEAN CORPUSCULAR HEMOGLOBIN 29.1 pg (27.0-33.0); MEAN CORPUSCULAR VOLUME 97.1 fL (79-99); MONOCYTES % (AUTO) 7.5 % (3.0-13.0); NEUTROPHILS % (AUTO) 63.2 % (40.0-77.0); NUCLEATED RED BLOOD CELLS 11.9 % (0.0-0.19); PLATELET COUNT (AUTO) 411 K/uL (130-400); RED BLOOD CELL COUNT(AUTO) 2.78 MIL/uL (4.00-5.50); RED CELL DISTRIBUTION WIDTH 19.7 % (11.0-15.5); WHITE BLOOD COUNT (AUTO) 13.7 K/uL (4.8-10.8)
[2020-03-22 08:08] LABS: ALBUMIN 0.8 g/dL (3.5-5.0); BILIRUBIN,TOTAL 0.2 mg/dL (0.2-1.0); CREATININE 0.8 mg/dL (0.5-1.5); POTASSIUM 3.6 mmol/L (3.5-5.1); TOTAL PROTEIN, SERUM 4.1 g/dL (6.0-8.3)
[2020-03-22] MEDS: ZINC SULFATE 220 CAPSULE PO SCH (08:33)
[2020-03-22] MEDS: POLYETHYLENE GLYCOL 3350 17 GM POWD.PACK PO SCH (08:33)
[2020-03-22] MEDS: DOCUSATE NA 100MG/10ML UDCUP NG SCH (08:35)
[2020-03-22] MEDS ORDERED: FENTANYL 2500MCG+NS 250ML 250 ML IV ONE (08:45)
[2020-03-22 08:56] LABS: BAND NEUTROPHILS % (MANUAL) 2 % (0-2); LYMPHOCYTES % (MANUAL) 30 % (22-44); MAN.DIFF COMMENT-IMPRESSION MANUAL DIFFERENTIAL; MONOCYTES % (MANUAL) 3 % (2-9); PLATELET MORPHOLOGY COMMENT ADEQUATE; SEGMENTED NEUTROPHILS % 65 % (40-70)
[2020-03-22] MEDS: PHENYLEPHRINE HCL 100 MG in SODIUM CHLORIDE 0.9% 250 ML IV SCH (08:56)
[2020-03-22] MEDS: NOREPINEPHRINE BITARTRATE 32 MG in SODIUM CHLORIDE 0.9% 250 ML IV SCH ×2 (08:57→18:20)
[2020-03-22 10:39] LABS: ABG BASE EXCESS -6.1 mmol/L (-2.0-3.0); ABG OXYGEN SATURATION 92.6 % (95.0-99.0); ABG PCO2 60 mmHg (32-45)
--- NOTE | 2020-03-22 11:45 | NUR ---
Pt no longer with runs of Vtach after amiodarone bolus and drip initiation. Called Dr. Cooper regarding 6.45 lactate on ABG. MD requests 500 ML LR bolus, albumin 25% BID, 2 amps of sodium bicarb for pH of 7.162 in addition to bicarb gtt already in place, and 1 amp of calcium gluconate for iCa of 1.01 MD request lactate be rechecked in AM. Addendum: 03/23/20 at 0003 by PALAK SMITH RN RN Note time is 2345, not 1145.
[2020-03-22] MEDS: SODIUM BICARB 8.4% 50ML SYRING 150 MEQ in DEXTROSE 5%-WATER 1,000 ML IV SCH ×2 (13:03→15:51)
[2020-03-22] MEDS: LACTATED RINGERS 1000ML IV SCH (13:30)
--- NOTE | 2020-03-22 16:45 | NUR ---
Patient's daughter/decision maker called RN to reverse patient's code status to "FULL CODE". Alexx Heck RN verified daughters wish via phone. Dr Cooper notified of code status
[2020-03-22] MEDS ORDERED: CALCIUM GLUCONATE 1 GM/10 ML VIAL IV SCH (17:15)
[2020-03-22] MEDS ORDERED: SODIUM CHLORIDE 0.9% 250 ML IV ONE (17:41)
[2020-03-22] MEDS: METOPROLOL TARTRATE 1 MG/ML 5ML VIAL IV PRN (17:44)
[2020-03-22] MEDS ORDERED: CALCIUM GLUCONATE 1 GM in SODIUM CHLORIDE 0.9% 100 ML IV SCH (18:00)
[2020-03-22] MEDS ORDERED: SODIUM CHLORIDE 0.9% 1000ML 1,000 ML IV ONE ×2 (19:59→21:51)
--- NOTE | 2020-03-22 20:00 | NUR ---
Pt with intermittent runs of Vtach with a pulse. Discussed w/Dr. Cooper. requests amiodarone bolus followed by amiodarone maintence drip as well as 4MG Magnesium, 20 MEQ of potassium, and an ABG plus.
[2020-03-22] MEDS ORDERED: AMIODARONE HCL 150 MG in DEXTROSE 5%-WATER 100 ML IV SCH (21:15)
[2020-03-22 21:42] LABS: ABG BASE EXCESS -5.3 mmol/L (-2.0-3.0); ABG HCO3 23.1 mmol/L (21.0-28.0); ABG OXYGEN SATURATION 87.6 % (95.0-99.0); ABG PCO2 66 mmHg (32-45)
[2020-03-22] MEDS: LACTATED RINGERS 1000ML 500 ML IV SCH (23:47)
[2020-03-23] VITALS (60 sets, daily range): BP systolic 68–128; BP diastolic 25–72
[2020-03-23] MEDS ORDERED: SODIUM BICARB 50MEQ 50ML VIAL ONE ×2 (00:05→23:23)
[2020-03-23] MEDS ORDERED: CALCIUM GLUCONATE 1 GM/10 ML VIAL IV ONE (00:05)
[2020-03-23] MEDS ORDERED: ALBUMIN (HUMAN) 25% 200 ML IV ONE (00:06)
[2020-03-23] MEDS: LACTATED RINGERS 1000ML 500 ML IV SCH ×23 (00:47→23:46)
[2020-03-23] MEDS: SODIUM BICARB 8.4% 50ML SYRING 150 MEQ in DEXTROSE 5%-WATER 1,000 ML IV SCH ×3 (01:03→20:43)
[2020-03-23 04:46] LABS: HEMATOCRIT 22.6 % (36-48); MEAN CORPUSCULAR HEMOGLOBIN 30.2 pg (27.0-33.0); MEAN CORPUSCULAR HGB CONC 31.4 g/dL (32.0-36.0); MEAN CORPUSCULAR VOLUME 96.2 fL (79-99); NUCLEATED RED BLOOD CELLS 24.8 % (0.0-0.19); PLATELET COUNT (AUTO) 305 K/uL (130-400); RED BLOOD CELL COUNT(AUTO) 2.35 MIL/uL (4.00-5.50); RED CELL DISTRIBUTION WIDTH 19.4 % (11.0-15.5); WHITE BLOOD COUNT (AUTO) 11.4 K/uL (4.8-10.8)
[2020-03-23 04:54] LABS: BAND NEUTROPHILS % (MANUAL) 17 % (0-2); BASOPHILS % (MANUAL) 1 % (0-2); LYMPHOCYTES % (MANUAL) 20 % (22-44); MAN.DIFF COMMENT-IMPRESSION MANUAL DIFFERENTIAL; MONOCYTES % (MANUAL) 4 % (2-9); SEGMENTED NEUTROPHILS % 58 % (40-70)
[2020-03-23 05:03] LABS: ALBUMIN 1.3 g/dL (3.5-5.0); BILIRUBIN,TOTAL 0.2 mg/dL (0.2-1.0); POTASSIUM 3.5 mmol/L (3.5-5.1)
[2020-03-23] MEDS: SODIUM CHLORIDE 0.9% IV SCH ×2 (05:59→14:18)
[2020-03-23] MEDS: BACTRIM IV SCH ×2 (05:59→14:18)
[2020-03-23] MEDS: POLYETHYLENE GLYCOL 3350 17 GM POWD.PACK PO SCH (08:14)
[2020-03-23] MEDS: MIDODRINE HCL 5 MG TABLET PO SCH ×3 (08:14→20:43)
[2020-03-23] MEDS: ZINC SULFATE 220 CAPSULE PO SCH (08:14)
[2020-03-23] MEDS: PANTOPRAZOLE 40 MG/VIAL IVP SCH ×2 (08:14→20:43)
[2020-03-23] MEDS: ASCORBIC ACID 500 MG TAB PO SCH (08:14)
[2020-03-23] MEDS: TIGECYCLINE 50 MG in SODIUM CHLORIDE 0.9% 100 ML IV SCH ×2 (08:14→20:43)
[2020-03-23 09:10] LABS: ABG BASE EXCESS -8.9 mmol/L (-2.0-3.0); ABG HCO3 20.7 mmol/L (21.0-28.0); ABG OXYGEN SATURATION 90.7 % (95.0-99.0); ABG PCO2 61 mmHg (32-45)
[2020-03-23] MEDS: PHENYLEPHRINE HCL 100 MG in SODIUM CHLORIDE 0.9% 250 ML IV SCH ×3 (10:11→20:46)
[2020-03-23] MEDS: NOREPINEPHRINE BITARTRATE 32 MG in SODIUM CHLORIDE 0.9% 250 ML IV SCH ×2 (10:11→17:06)
[2020-03-23] MEDS: LACTATED RINGERS 1000ML IV SCH (13:30)
[2020-03-23] MEDS ORDERED: ALBUMIN (HUMAN) 25% 100 ML IV ONE (13:48)
[2020-03-23] MEDS: FENTANYL 2500MCG+NS 250ML 250 ML IV SCH (14:12)
[2020-03-23 14:40] LABS: ABG BASE EXCESS -8.2 mmol/L (-2.0-3.0); ABG HCO3 20.4 mmol/L (21.0-28.0); ABG OXYGEN SATURATION 93.3 % (95.0-99.0); ABG PCO2 54 mmHg (32-45)
[2020-03-23] MEDS: POTASSIUM CHLORIDE 20MEQ/100ML 100 ML IV PRN (18:21)
[2020-03-23] MEDS ORDERED: FUROSEMIDE 10 MG/ML 2ML VIAL IV SCH (18:30)
[2020-03-23] MEDS: AMIODARONE HCL 200 MG TABLET PO SCH (20:43)
[2020-03-23] MEDS: VASOPRESSIN 20 UNITS in SODIUM CHLORIDE 0.9% 100 ML IV SCH (20:48)
[2020-03-23] MEDS: ALBUMIN (HUMAN) 25% 50 ML IV SCH (23:46)
[2020-03-23] MEDS: CALCIUM GLUCONATE 1 GM/10 ML VIAL IV SCH ×2 (23:47)
[2020-03-23] MEDS: SODIUM BICARB 8.4% 50ML SYRINGE IVP SCH ×2 (23:47)
[2020-03-24] VITALS (98 sets, daily range): BP systolic 63–127; BP diastolic 33–78
[2020-03-24] MEDS: LACTATED RINGERS 1000ML 500 ML IV SCH ×5 (00:21→07:47)
[2020-03-24] MEDS: FENTANYL 2500MCG+NS 250ML 250 ML IV SCH (02:02)
[2020-03-24 04:19] LABS: MEAN CORPUSCULAR HEMOGLOBIN 29.5 pg (27.0-33.0); MEAN CORPUSCULAR HGB CONC 31.2 g/dL (32.0-36.0); MEAN CORPUSCULAR VOLUME 94.5 fL (79-99); NUCLEATED RED BLOOD CELLS 25.5 % (0.0-0.19); PLATELET COUNT (AUTO) 269 K/uL (130-400); RED BLOOD CELL COUNT(AUTO) 2.17 MIL/uL (4.00-5.50); RED CELL DISTRIBUTION WIDTH 19.3 % (11.0-15.5); WHITE BLOOD COUNT (AUTO) 11.9 K/uL (4.8-10.8)
[2020-03-24 04:50] LABS: ALBUMIN 1.8 g/dL (3.5-5.0); BILIRUBIN,DIRECT 0.2 mg/dL (0.0-0.3); BILIRUBIN,TOTAL 0.4 mg/dL (0.2-1.0); CREATININE 1.1 mg/dL (0.5-1.5); POTASSIUM 3.7 mmol/L (3.5-5.1); TOTAL PROTEIN, SERUM 4.1 g/dL (6.0-8.3)
[2020-03-24 05:21] LABS: HEMATOCRIT 20.5 % (36-48)
[2020-03-24 06:34] LABS: BAND NEUTROPHILS % (MANUAL) 18 % (0-2); LYMPHOCYTES % (MANUAL) 28 % (22-44); MAN.DIFF COMMENT-IMPRESSION MANUAL DIFFERENTIAL; MONOCYTES % (MANUAL) 3 % (2-9); SEGMENTED NEUTROPHILS % 51 % (40-70)
[2020-03-24 06:36] LABS: PLATELET MORPHOLOGY COMMENT ADEQUATE
[2020-03-24 07:18] LABS: ABG BASE EXCESS -5.7 mmol/L (-2.0-3.0); ABG HCO3 22.6 mmol/L (21.0-28.0); ABG PCO2 56 mmHg (32-45)
[2020-03-24] MEDS: ALBUMIN (HUMAN) 25% 50 ML IV SCH ×2 (07:58→20:37)
[2020-03-24] MEDS: PANTOPRAZOLE 40 MG/VIAL IVP SCH ×2 (07:58→20:37)
[2020-03-24] MEDS: POTASSIUM CHLORIDE 20MEQ/100ML 100 ML IV PRN (07:58)
[2020-03-24] MEDS: TIGECYCLINE 50 MG in SODIUM CHLORIDE 0.9% 100 ML IV SCH ×2 (07:58→20:37)
[2020-03-24] MEDS: AMIODARONE HCL 200 MG TABLET PO SCH ×2 (07:58→20:37)
[2020-03-24] MEDS: MIDODRINE HCL 5 MG TABLET PO SCH ×3 (07:58→20:37)
[2020-03-24] MEDS: POLYETHYLENE GLYCOL 3350 17 GM POWD.PACK PO SCH (08:00)
[2020-03-24] MEDS ORDERED: BUMETANIDE 0.25 MG/ML 4 ML VIAL ONE (10:13)
[2020-03-24] MEDS ORDERED: BUMETANIDE 0.25 MG/ML 4 ML VIAL IV SCH (10:15)
[2020-03-24] MEDS: PHENYLEPHRINE HCL 100 MG in SODIUM CHLORIDE 0.9% 250 ML IV SCH (11:58)
[2020-03-24] MEDS ORDERED: BUMETANIDE 0.25MG/ML 80ML IV SCH (12:30)
[2020-03-24] MEDS ORDERED: SODIUM CHLORIDE 0.9% 250 ML IV ONE (12:55)
[2020-03-24] MEDS: LACTATED RINGERS 1000ML IV SCH (13:30)
[2020-03-24] MEDS ORDERED: BUMETANIDE 0.25 MG/ML 4 ML VIAL IVP SCH (13:30)
[2020-03-24] MEDS: SODIUM BICARB 8.4% 50ML SYRING 150 MEQ in DEXTROSE 5%-WATER 1,000 ML IV SCH (16:01)
[2020-03-24] MEDS: VASOPRESSIN 20 UNITS in SODIUM CHLORIDE 0.9% 100 ML IV SCH (16:21)
[2020-03-24 16:59] LABS: HEMATOCRIT 23.5 % (36-48)
[2020-03-24] MEDS: LACTULOSE 20 GM/30 ML UDCUP PO SCH (18:30)
[2020-03-25] VITALS (77 sets, daily range): BP systolic 58–134; BP diastolic 20–105
[2020-03-25] MEDS: CALCIUM GLUCONATE 1 GM/10 ML VIAL IV SCH (00:10)
[2020-03-25] MEDS: LACTULOSE 20 GM/30 ML UDCUP PO SCH ×3 (00:10→16:19)
[2020-03-25] MEDS: SODIUM BICARB 8.4% 50ML SYRINGE IVP SCH (00:10)
[2020-03-25] MEDS: SODIUM BICARB 8.4% 50ML SYRING 150 MEQ in DEXTROSE 5%-WATER 1,000 ML IV SCH (02:11)
[2020-03-25 05:09] LABS: HEMATOCRIT 23.9 % (36-48); MEAN CORPUSCULAR HGB CONC 33.5 g/dL (32.0-36.0); MEAN CORPUSCULAR VOLUME 92.6 fL (79-99); NUCLEATED RED BLOOD CELLS 20.6 % (0.0-0.19); PLATELET COUNT (AUTO) 208 K/uL (130-400); RED BLOOD CELL COUNT(AUTO) 2.58 MIL/uL (4.00-5.50); RED CELL DISTRIBUTION WIDTH 18.2 % (11.0-15.5); WHITE BLOOD COUNT (AUTO) 16.1 K/uL (4.8-10.8)
[2020-03-25 05:48] LABS: ALBUMIN 2.1 g/dL (3.5-5.0); BILIRUBIN,DIRECT 0.3 mg/dL (0.0-0.3); BILIRUBIN,TOTAL 0.7 mg/dL (0.2-1.0); CREATININE 1.2 mg/dL (0.5-1.5); POTASSIUM 4.1 mmol/L (3.5-5.1); TOTAL PROTEIN, SERUM 4.4 g/dL (6.0-8.3)
[2020-03-25 07:19] LABS: BAND NEUTROPHILS % (MANUAL) 1 % (0-2); LYMPHOCYTES % (MANUAL) 15 % (22-44); MAN.DIFF COMMENT-IMPRESSION MANUAL DIFFERENTIAL; MONOCYTES % (MANUAL) 2 % (2-9); PLATELET MORPHOLOGY COMMENT ADEQUATE; SEGMENTED NEUTROPHILS % 82 % (40-70)
[2020-03-25 07:53] LABS: ABG BASE EXCESS -5.4 mmol/L (-2.0-3.0); ABG HCO3 23.8 mmol/L (21.0-28.0); ABG OXYGEN SATURATION 71.2 % (95.0-99.0); ABG PCO2 62 mmHg (32-45)
[2020-03-25] MEDS: PANTOPRAZOLE 40 MG/VIAL IVP SCH ×2 (08:01→20:58)
[2020-03-25] MEDS: TIGECYCLINE 50 MG in SODIUM CHLORIDE 0.9% 100 ML IV SCH ×2 (08:01→20:58)
[2020-03-25] MEDS: ALBUMIN (HUMAN) 25% 50 ML IV SCH ×2 (08:01→20:58)
[2020-03-25] MEDS: MIDODRINE HCL 5 MG TABLET PO SCH ×3 (08:07→20:58)
[2020-03-25] MEDS: AMIODARONE HCL 200 MG TABLET PO SCH ×2 (08:07→20:58)
[2020-03-25 08:22] LABS: ABG HCO3 23.5 mmol/L (21.0-28.0); ABG OXYGEN SATURATION 92.7 % (95.0-99.0); ABG PCO2 57 mmHg (32-45)
[2020-03-25] MEDS: POLYETHYLENE GLYCOL 3350 17 GM POWD.PACK PO SCH (09:00)
[2020-03-25] MEDS: PHENYLEPHRINE HCL 100 MG in SODIUM CHLORIDE 0.9% 250 ML IV SCH ×2 (09:50→16:21)
[2020-03-25] MEDS ORDERED: NOREPINEPHRINE 4MG/NS 250ML 250 ML IV ONE (13:08)
[2020-03-25] MEDS ORDERED: METOCLOPRAMIDE 10 MG/2 ML VIAL IVP SCH (15:12)
[2020-03-25] MEDS: NOREPINEPHRINE BITARTRATE 32 MG in SODIUM CHLORIDE 0.9% 250 ML IV SCH (16:20)
[2020-03-25] MEDS ORDERED: NOREPINEPHRINE BITARTRATE 32 MG in SODIUM CHLORIDE 0.9% 250 ML IV PRN (20:00)
[2020-03-25] MEDS: METOCLOPRAMIDE 10 MG/2 ML VIAL IVP SCH (20:58)
--- NOTE | 2020-03-25 21:45 | NUR ---
PATIENT BLOOD PRESSURE 68/25. PATIENT CURRENTLY ON MAX INFUSION OF LEVOPHED, VASOPRESSIN, AND NEOSYNEPHRINE. CN NOTIFIED. MD NOTIFIED. NO ADDITIONAL ORDERS WILL BE PLACED AT THIS TIME. WILL CONTINUE TO MONITOR PATIENT.
--- NOTE | 2020-03-25 21:52 | NUR ---
FAMILY CALLED WITH UPDATE OF PATIENT CONDITION.
[2020-03-26] VITALS (23 sets, daily range): BP systolic 46–114; BP diastolic 22–56
[2020-03-26] MEDS ORDERED: DEXTROSE 50%-WATER 50 ML DISP.SYRIN IV ONE (00:47)
[2020-03-26] MEDS: LACTULOSE 20 GM/30 ML UDCUP PO SCH (01:05)
[2020-03-26] MEDS: PHENYLEPHRINE HCL 100 MG in SODIUM CHLORIDE 0.9% 250 ML IV SCH (02:37)
[2020-03-26] MEDS: VASOPRESSIN 20 UNITS in SODIUM CHLORIDE 0.9% 100 ML IV SCH (02:37)
--- NOTE | 2020-03-26 03:55 | NUR ---
NURSE UNABLE TO WITHDRAW AM LABS FROM PICC LINE . ICE CRUSHER NOTIFIED. .
--- NOTE | 2020-03-26 07:30 | NUR ---
FAMILY UPDATE SPOKE WITH DAUGHTER FRANNY. UPDATED ON PT CONDITION AND PLAN OF CARE. STATED SHE WILL NOTIFY HER FATHER AND BROTHER OF UPDATES. FAMILY AND MD AWARE UNABLE TO DRAW BLOOD FROM LINES AND VENIPUNCTURE.
[2020-03-26] MEDS: MIDODRINE HCL 5 MG TABLET PO SCH (10:16)
[2020-03-26] MEDS: TIGECYCLINE 50 MG in SODIUM CHLORIDE 0.9% 100 ML IV SCH (10:16)
[2020-03-26] MEDS: ALBUMIN (HUMAN) 25% 50 ML IV SCH (10:16)
[2020-03-26] MEDS: AMIODARONE HCL 200 MG TABLET PO SCH (10:16)
[2020-03-26] MEDS: METOCLOPRAMIDE 10 MG/2 ML VIAL IVP SCH (10:16)
[2020-03-26] MEDS: PANTOPRAZOLE 40 MG/VIAL IVP SCH (10:16)
--- NOTE | 2020-03-26 10:50 | NUR ---
SW attempted to contact family/DtrRishi Izquierdo; no answer. SW will continue with attempts in contacting.
--- NOTE | 2020-03-26 11:15 | NUR ---
COMFORT MEASURES UPDATED DAUGHTER ON STACY MONTGOMERY RECOMMENDATIONS TO NOT PURSUE AGGRESSIVE MEASURES. EXPLAINED COMFORT MEASURES TO DAUGHTER. VERBALIZED UNDERSTANDING AND WISHES TO WITHHOLD BLOOD DRAWS AND GLUCOMETERS. WILL MAINTAIN IV INFUSIONS FOR BLOOD PRESSURE SUPPORT. NO MENTION OF WITHDRAWAL OF LIFE SUPPORT. REQUESTING PASSES FOR FAMILY CROSSING OVER FROM [place]. MENTIONED I WILL FORWARD TO [facility]; HOWEVER DUE TO COVID IT IS HIGHLY UNLIKELY. [facility] MADE AWARE OF REQUEST IN ADDITION TO PALLIATIVE CARE CONSULT.
--- NOTE | 2020-03-26 11:40 | NUR ---
SW contacted pt's dtr. Felecia who reported that she has spoken w/physicians and it her understanding that pt. is declining and actively dying. SW spoke w/dtr. about inpt. hospice care/GIP, however, Felecia informed this worker that she did not want her mother extubated and instead kept intubated and comfortable. Dtr. reported that she has been speaking with her father about pt's declining condition and preparing him for expected ;SW provided empathetic listening. Dtr. stated that she is making arrangements on this day with [facility] in [place] and is speaking with [facility] who is supportive of family. Dtr. provided w/SW's contact telephone number for any other needs. NAINA Gray made aware.
--- NOTE | 2020-03-26 12:00 | NUR ---
[facility] UPDATE PER [facility] LANDRUM FAMILY DOES NOT WANT TO EXTUBATE PATIENT. DAUGHTER FRANNY AWARE PT MAY NOT SURVIVE TODAY, AGREES TO NO BLOOD DRAWS OR GLUCOMETERS. MARIA ISABEL MONTGOMERY AWARE.
[2020-03-26] MEDS ORDERED: ARTIFICAL TEARS SOL 15 ML OU PRN (14:00)
--- NOTE | 2020-03-26 18:15 | NUR ---
EXPIRATION NOTE PT ON VENT @ 1803, ASYSTOLE ON THE MONITOR NOTED. PRONOUNCED BY LAUREL MONTGOMERY. FAMILY MADE AWARE, ARRANGEMENTS MADE AND AWARE BELONGINGS WILL BE WITH PATIENT AFTER POST MORTEM CARE. EMOTIONAL SUPPORT GIVEN, ALL QUESTIONS ANSWERED.
== END 2020-03-26 18:03 | disposition expired | DRG 870 ==
LOC: EDH 13:49 → EDHIP 18:12 → 2DH 01-13 10:49 → 2BH 01-22 22:13
PROVIDERS: ADMIT Internal Medicine; ATTEND Internal Medicine
PROC: XW13325 Transfusion of Convalescent Plasma (Nonautologous) into Peripheral Vein, Percutaneous Approach, New Technology Group 5 (ICD-10-PCS; 2020-01-18)
PROC: XW033E5 Introduction of Remdesivir Anti-infective into Peripheral Vein, Percutaneous Approach, New Technology Group 5 (ICD-10-PCS; 2020-01-22)
PROC: 5A1955Z Respiratory Ventilation, Greater than 96 Consecutive Hours (ICD-10-PCS; principal; 2020-02-15)
PROC: 0BH17EZ Insertion of Endotracheal Airway into Trachea, Via Natural or Artificial Opening (ICD-10-PCS; 2020-02-15)
PROC: 02HV33Z Insertion of Infusion Device into Superior Vena Cava, Percutaneous Approach (ICD-10-PCS; 2020-02-23)
PROC: 30233N1 Transfusion of Nonautologous Red Blood Cells into Peripheral Vein, Percutaneous Approach (ICD-10-PCS; 2020-03-08)
PROC: 5A09357 Assistance with Respiratory Ventilation, Less than 24 Consecutive Hours, Continuous Positive Airway Pressure (ICD-10-PCS; 2020-03-17)
DX: A41.89 Other specified sepsis (principal); E43 Unspecified severe protein-calorie malnutrition; U07.1 COVID-19; J12.89 Other viral pneumonia; J96.01 Acute respiratory failure with hypoxia; J96.02 Acute respiratory failure with hypercapnia; R65.21 Severe sepsis with septic shock; K72.00 Acute and subacute hepatic failure without coma; J15.6 Pneumonia due to other Gram-negative bacteria; E87.1 Hypo-osmolality and hyponatremia; Z16.24 Resistance to multiple antibiotics; N39.0 Urinary tract infection, site not specified; N17.9 Acute kidney failure, unspecified; I47.2 Ventricular tachycardia; E87.0 Hyperosmolality and hypernatremia; R13.12 Dysphagia, oropharyngeal phase; G83.9 Paralytic syndrome, unspecified; Z66 Do not resuscitate; E87.8 Other disorders of electrolyte and fluid balance, not elsewhere classified; D64.9 Anemia, unspecified; E86.9 Volume depletion, unspecified; B95.7 Other staphylococcus as the cause of diseases classified elsewhere; R74.8 Abnormal levels of other serum enzymes; E11.9 Type 2 diabetes mellitus without complications; E66.9 Obesity, unspecified; E87.6 Hypokalemia; I11.9 Hypertensive heart disease without heart failure; Z90.49 Acquired absence of other specified parts of digestive tract; Z74.01 Bed confinement status; Z68.28 Body mass index [BMI] 28.0-28.9, adult
CPT/HCPCS: 31500; 36415; 36430; 36600; 71045; 71250; 74018; 76705; 80048; 80053; 80076; 80202; 82140; 82435; 82550; 82728; 82803; 82947; 82948; 83036; 83540; 83550; 83605; 83615; 83735; 83874; 83880; 84100; 84132; 84145; 84295; 84443; 84484; 85014; 85018; 85025; 85027; 85045; 85378; 85384; 85610; 85730; 86140; 86850; 86900; 86901; 86922; 86923; 86927; 87040; 87071; 87077; 87088; 87186; 87205; 87486; 87581; 87633; 87635; 87798; 87804; 87880; 93005; 93306; 93356; 93970; 94002; 94003; 94760; A4344; A4606; C1751; C1894; C9113; G0378; J0282; J0330; J0456; J0610; J0692; J0696; J1100; J1120; J1650; J1940; J1956; J2185; J2250; J2370; J2405; J2543; J2704; J2765; J2920; J2930; J3010; J3243; J3370; J3475; J3480; J3490; J7030; J7040; J7050; J7060; J7070; J7120; P9016; P9017; P9046; P9047; U0003